=== PATIENT | male | born 1975 | race Caucasian/White ===

== ENCOUNTER 2017-05-29 14:49 | Outpatient (CLI) | payer OTHER | END 2017-05-29 15:43 | disposition home or self-care (01) | LOC: DCC 14:49 | DX: R60.0 Localized edema (principal); E11.9 Type 2 diabetes mellitus without complications; I10 Essential (primary) hypertension; E78.5 Hyperlipidemia, unspecified; N28.9 Disorder of kidney and ureter, unspecified; D64.9 Anemia, unspecified; N40.0 Benign prostatic hyperplasia without lower urinary tract symptoms; Z79.4 Long term (current) use of insulin | CPT/HCPCS: G0463 ==

== ENCOUNTER 2017-06-12 06:53 | Inpatient (IN) | payer OTHER ==
[2017-06-12] MEDS: ASPIRIN 325 MG TAB PO (09:14)
[2017-06-12 09:29] LABS: ADD MAN DIFF? NO
[2017-06-12 09:38] LABS: WHITE BLOOD COUNT 6.6 10^3/ul (4.8-10.8)
[2017-06-12 09:38] LABS: BASOPHILS % 0.3 % (0.0-2.0); EOSINOPHILS # 0.5 10^3/ul (0.0-0.5); EOSINOPHILS % 8.2 % (0.0-7.0); HEMATOCRIT 26.6 % (42.0-52.0); HEMOGLOBIN 8.7 g/dl (14.0-18.0); LYMPHOCYTES # 1.3 10^3/ul (0.8-2.9); LYMPHOCYTES % 18.9 % (15.0-51.0); MEAN CORPUSCULAR HEMOGLOBIN 27.5 pg (29.0-33.0); MEAN CORPUSCULAR HGB CONC 32.7 g/dl (32.0-37.0); MEAN CORPUSCULAR VOLUME 84.2 fl (82.0-101.0); MEAN PLATELET VOLUME 10.1 fl (7.4-10.4); MONOCYTE # 0.7 10^3/ul (0.3-0.9); MONOCYTES % 11.1 % (0.0-11.0); NEUTROPHIL # 4.1 10^3/ul (1.6-7.5); NEUTROPHILS % 61.3 % (39.0-77.0); PLATELET COUNT 296 10^3/UL (140-415); RED BLOOD COUNT 3.16 10^6/ul (4.70-6.10); RED CELL DISTRIBUTION WIDTH 13.2 % (11.5-14.5)
[2017-06-12] MEDS: NITROGLYCERIN 2% 1 GM OINT PKT TD (09:46)
[2017-06-12] MEDS: FUROSEMIDE 40 MG INJ IV ×2 (09:47→17:19)
[2017-06-12 09:51] LABS: ANION GAP 15 (8-16); BLOOD UREA NITROGEN 22 mg/dl (7-20); CALCIUM 8.3 mg/dl (8.4-10.2); CARBON DIOXIDE 26 mmol/L (21-31); CHLORIDE 108 mmol/L (97-110); GLUCOSE 189 mg/dl (70-220); POTASSIUM 3.2 mmol/L (3.5-5.1); SODIUM 146 mmol/L (135-144)
[2017-06-12 10:03] LABS: B-TYPE NATRIURETIC PEPTIDE 2680 PG/ML (0-125)
[2017-06-12] MEDS ORDERED: POTASSIUM CHLORIDE 30 MEQ in SOD CHLORIDE 0.9% 150 ML IVPB (11:00)
[2017-06-12] MEDS: POTASSIUM CHLORIDE 50 ML IVPB ×3 (11:16→13:12)
[2017-06-12] MEDS ORDERED: ONDANSETRON 4 MG INJ IV ×2 (11:30→13:00)
[2017-06-12] MEDS ORDERED: ACETAMINOPHEN 325 MG TAB PO (11:30)
[2017-06-12 11:39] LABS: AMPHETAMINE/METHAMPHETAMINE Negative (NEGATIVE); BARBITURATES Negative (NEGATIVE); BENZODIAZEPINES Negative (NEGATIVE); CANNABINOIDS Negative (NEGATIVE); OPIATES Negative (NEGATIVE)
[2017-06-12 11:42] LABS: COCAINE Positive (NEGATIVE)
[2017-06-12] MEDS ORDERED: GLUCOSE GEL 15 GRAM TUBE PO ×4 (13:30→15:00)
[2017-06-12] MEDS ORDERED: DEXTROSE 50% 50 ML SYRINGE IV ×4 (13:30→15:00)
[2017-06-12] MEDS ORDERED: GLUCOSE GEL 15 GRAM TUBE BUCCAL ×2 (13:30→15:00)
[2017-06-12] MEDS ORDERED: GLUCAGON 1 MG INJ IM ×2 (13:30→15:00)
[2017-06-12] MEDS: METOLAZONE 5 MG TAB PO (15:00)
[2017-06-12] MEDS: CHOLECALCIFEROL 1,000 UNIT TAB PO (15:00)
[2017-06-12] MEDS: EZETIMIBE 10 MG TAB PO (15:00)
[2017-06-12] MEDS: hydrALAzine 20 MG INJ IV (15:11)
[2017-06-12 15:47] LABS: ALANINE AMINOTRANSFERASE 46 IU/L (13-69); ALBUMIN 2.6 g/dl (3.3-4.9); ALKALINE PHOSPHATASE 100 IU/L (42-121); ASPARTATE AMINO TRANSFERASE 28 IU/L (15-46); BILIRUBIN,INDIRECT 0.1 mg/dl (0-1.1); BILIRUBIN,TOTAL 0.1 mg/dl (0.2-1.3); CREATINE KINASE 495 IU/L (23-200); TOTAL PROTEIN 5.1 g/dl (6.1-8.1)
[2017-06-12 15:59] LABS: CK INDEX 0.7; TROPONIN-I 0.012 ng/ml (0.00-0.12)
[2017-06-12 16:00] LABS: CK-MB 3.51 ng/ml (0.0-2.4)
[2017-06-12] MEDS: REPAGLINIDE 1 MG TAB PO (18:36)
[2017-06-12] MEDS: INSULIN ASPART [NOVOLOG] 3 ML PEN SC ×2 (18:40→21:03)
[2017-06-12] MEDS: ATORVASTATIN 80 MG TAB PO (20:52)
[2017-06-12] MEDS: TAMSULOSIN (SR) 0.4 MG CAP PO (20:52)
[2017-06-12] MEDS: AMLODIPINE 10 MG TAB PO (20:53)
[2017-06-12] MEDS: INSULIN GLARGINE [LANtus] 3 ML PEN SC (21:03)
[2017-06-12 21:36] LABS: CREATINE KINASE 499 IU/L (23-200)
[2017-06-12 21:46] LABS: CK INDEX 0.7; TROPONIN-I 0.014 ng/ml (0.00-0.12)
[2017-06-12 21:47] LABS: CK-MB 3.58 ng/ml (0.0-2.4)
[2017-06-13] MEDS: ACCU-CHEK XX (01:41)
[2017-06-13] MEDS: ZOLPIDEM 5 MG TAB PO ×2 (01:45→21:17)
[2017-06-13] MEDS: FUROSEMIDE 40 MG INJ IV ×2 (05:23→17:14)
[2017-06-13 07:30] LABS: ADD MAN DIFF? NO
[2017-06-13 07:34] LABS: BASOPHILS % 0.3 % (0.0-2.0); EOSINOPHILS # 0.5 10^3/ul (0.0-0.5); EOSINOPHILS % 8.6 % (0.0-7.0); HEMATOCRIT 24.1 % (42.0-52.0); HEMOGLOBIN 7.8 g/dl (14.0-18.0); LYMPHOCYTES # 1.2 10^3/ul (0.8-2.9); LYMPHOCYTES % 20.6 % (15.0-51.0); MEAN CORPUSCULAR HEMOGLOBIN 27.6 pg (29.0-33.0); MEAN CORPUSCULAR HGB CONC 32.4 g/dl (32.0-37.0); MEAN CORPUSCULAR VOLUME 85.2 fl (82.0-101.0); MEAN PLATELET VOLUME 10.7 fl (7.4-10.4); MONOCYTE # 0.7 10^3/ul (0.3-0.9); MONOCYTES % 11.2 % (0.0-11.0); NEUTROPHIL # 3.5 10^3/ul (1.6-7.5); NEUTROPHILS % 59.1 % (39.0-77.0); PLATELET COUNT 268 10^3/UL (140-415); RED BLOOD COUNT 2.83 10^6/ul (4.70-6.10); RED CELL DISTRIBUTION WIDTH 13.3 % (11.5-14.5)
[2017-06-13] MEDS: INSULIN ASPART [NOVOLOG] 3 ML PEN SC ×4 (07:55→20:03)
[2017-06-13 08:22] LABS: ALBUMIN 2.5 g/dl (3.3-4.9); BLOOD UREA NITROGEN 25 mg/dl (7-20); CALCIUM 8.3 mg/dl (8.4-10.2); CARBON DIOXIDE 29 mmol/L (21-31); CHLORIDE 108 mmol/L (97-110); CREATININE 1.73 mg/dl (0.61-1.24); GLUCOSE 84 mg/dl (70-220); MAGNESIUM 1.9 mg/dl (1.7-2.5); PHOSPHORUS 4.9 mg/dl (2.5-4.9); SODIUM 145 mmol/L (135-144)
[2017-06-13 08:26] LABS: ANION GAP 11 (8-16); POTASSIUM 2.9 mmol/L (3.5-5.1)
[2017-06-13] MEDS: EZETIMIBE 10 MG TAB PO (08:56)
[2017-06-13] MEDS: hydrALAzine 20 MG INJ IV ×2 (08:56→16:49)
[2017-06-13] MEDS: REPAGLINIDE 1 MG TAB PO ×3 (08:56→17:10)
[2017-06-13] MEDS: CHOLECALCIFEROL 1,000 UNIT TAB PO (08:56)
[2017-06-13] MEDS: METOLAZONE 5 MG TAB PO (08:57)
[2017-06-13] MEDS ORDERED: POTASSIUM CHLORIDE 40 MEQ in DEXTROSE 5% 250 ML IVPB (09:30)
[2017-06-13] MEDS: POTASSIUM CHLORIDE 50 ML IVPB ×4 (10:28→16:18)
[2017-06-13 14:59] LABS: MAGNESIUM 1.9 mg/dl (1.7-2.5)
[2017-06-13] MEDS: MINOXIDIL 2.5 MG TAB PO (17:48)
[2017-06-13] MEDS: HEPARIN 5,000 UNIT/0.5 ML VIAL SC (17:52)
[2017-06-13] MEDS: AMLODIPINE 10 MG TAB PO (20:00)
[2017-06-13] MEDS: ATORVASTATIN 80 MG TAB PO (20:00)
[2017-06-13] MEDS: TAMSULOSIN (SR) 0.4 MG CAP PO (20:00)
[2017-06-13] MEDS: INSULIN GLARGINE [LANtus] 3 ML PEN SC (20:10)
[2017-06-14] MEDS: ACCU-CHEK XX (01:16)
[2017-06-14] MEDS: HEPARIN 5,000 UNIT/0.5 ML VIAL SC ×3 (01:26→17:07)
[2017-06-14] MEDS: FUROSEMIDE 40 MG INJ IV (05:01)
[2017-06-14 06:54] LABS: ADD MAN DIFF? NO
[2017-06-14 06:59] LABS: BASOPHILS % 0.5 % (0.0-2.0); EOSINOPHILS # 0.5 10^3/ul (0.0-0.5); EOSINOPHILS % 7.8 % (0.0-7.0); HEMATOCRIT 24.9 % (42.0-52.0); LYMPHOCYTES # 1.2 10^3/ul (0.8-2.9); LYMPHOCYTES % 19.4 % (15.0-51.0); MEAN CORPUSCULAR HEMOGLOBIN 26.8 pg (29.0-33.0); MEAN CORPUSCULAR HGB CONC 32.1 g/dl (32.0-37.0); MEAN CORPUSCULAR VOLUME 83.6 fl (82.0-101.0); MEAN PLATELET VOLUME 10.5 fl (7.4-10.4); MONOCYTE # 0.6 10^3/ul (0.3-0.9); NEUTROPHIL # 3.7 10^3/ul (1.6-7.5); PLATELET COUNT 279 10^3/UL (140-415); RED BLOOD COUNT 2.98 10^6/ul (4.70-6.10); RED CELL DISTRIBUTION WIDTH 13.4 % (11.5-14.5)
[2017-06-14 07:30] LABS: ALBUMIN 2.8 g/dl (3.3-4.9); ANION GAP 14 (8-16); BLOOD UREA NITROGEN 28 mg/dl (7-20); CALCIUM 8.3 mg/dl (8.4-10.2); CARBON DIOXIDE 28 mmol/L (21-31); CHLORIDE 107 mmol/L (97-110); GLUCOSE 78 mg/dl (70-220); PHOSPHORUS 5.6 mg/dl (2.5-4.9); POTASSIUM 3.2 mmol/L (3.5-5.1); SODIUM 146 mmol/L (135-144)
[2017-06-14] MEDS: REPAGLINIDE 1 MG TAB PO ×3 (07:36→17:06)
[2017-06-14] MEDS: INSULIN ASPART [NOVOLOG] 3 ML PEN SC ×4 (07:40→20:55)
[2017-06-14] MEDS: METOLAZONE 5 MG TAB PO (08:47)
[2017-06-14] MEDS: MINOXIDIL 2.5 MG TAB PO (08:47)
[2017-06-14] MEDS: CHOLECALCIFEROL 1,000 UNIT TAB PO (08:47)
[2017-06-14] MEDS: EZETIMIBE 10 MG TAB PO (08:47)
[2017-06-14] MEDS: INFLUENZA VIRUS VACCINE 0.5 ML SYG IM* (08:57)
[2017-06-14] MEDS: LACTULOSE 30ML CUP PO ×2 (12:06→17:08)
[2017-06-14] MEDS: DOXAZOSIN 1 MG TAB PO (12:07)
[2017-06-14 13:11] LABS: HEPATITIS B SURFACE ANTIGEN NEGATIVE (NEGATIVE)
[2017-06-14 13:28] LABS: HEPATITIS C VIRAL ANTIBODY NEGATIVE (NEGATIVE)
[2017-06-14] MEDS: hydrALAzine 20 MG INJ IV (17:10)
[2017-06-14] MEDS: POTASSIUM CHLORIDE (SR) 20 MEQ TAB PO (18:49)
[2017-06-14] MEDS: SALMETEROL/FLUTICASONE 250/50 INHA INH (20:52)
[2017-06-14] MEDS: ATORVASTATIN 80 MG TAB PO (20:54)
[2017-06-14] MEDS: DOXAZOSIN 4 MG TAB PO (20:54)
[2017-06-14] MEDS: AMLODIPINE 2.5 MG TAB PO (20:54)
[2017-06-14] MEDS: MONTELUKAST 10 MG TAB PO (20:54)
[2017-06-14] MEDS: INSULIN GLARGINE [LANtus] 3 ML PEN SC (20:57)
[2017-06-14] MEDS: NITROGLYCERIN (SL) 0.4 MG TAB SL ×2 (22:43→22:55)
[2017-06-14] MEDS ORDERED: NITROGLYCERIN (SL) 0.4 MG TAB SL (23:00)
[2017-06-14 23:39] LABS: TROPONIN-I 0.021 ng/ml (0.00-0.12)
[2017-06-15] MEDS: ALBUMIN HUMAN 25% 100 ML IV ×2 (00:28→10:06)
[2017-06-15] MEDS: HEPARIN 5,000 UNIT/0.5 ML VIAL SC ×3 (01:55→17:19)
[2017-06-15] MEDS: ACCU-CHEK XX (02:06)
[2017-06-15] MEDS: ACETAMINOPHEN 325 MG TAB PO (02:20)
[2017-06-15] MEDS: DILTIAZEM 25 MG INJ IV (02:20)
[2017-06-15] MEDS: AMIODARONE 900 MG in DEXTROSE 5% 482 ML IV ×2 (04:29→10:35)
[2017-06-15 07:51] LABS: ADD MAN DIFF? NO
[2017-06-15] MEDS: REPAGLINIDE 1 MG TAB PO ×3 (07:52→17:19)
[2017-06-15] MEDS: INSULIN ASPART [NOVOLOG] 3 ML PEN SC ×4 (07:54→21:00)
[2017-06-15 07:58] LABS: WHITE BLOOD COUNT 5.8 10^3/ul (4.8-10.8)
[2017-06-15 07:59] LABS: BASOPHILS % 0.3 % (0.0-2.0); EOSINOPHILS # 0.4 10^3/ul (0.0-0.5); EOSINOPHILS % 6.1 % (0.0-7.0); HEMATOCRIT 24.8 % (42.0-52.0); HEMOGLOBIN 7.9 g/dl (14.0-18.0); LYMPHOCYTES # 1.1 10^3/ul (0.8-2.9); LYMPHOCYTES % 18.9 % (15.0-51.0); MEAN CORPUSCULAR HEMOGLOBIN 27.1 pg (29.0-33.0); MEAN CORPUSCULAR HGB CONC 31.9 g/dl (32.0-37.0); MEAN CORPUSCULAR VOLUME 85.2 fl (82.0-101.0); MEAN PLATELET VOLUME 11.1 fl (7.4-10.4); MONOCYTE # 0.8 10^3/ul (0.3-0.9); NEUTROPHIL # 3.5 10^3/ul (1.6-7.5); NEUTROPHILS % 60.4 % (39.0-77.0); PLATELET COUNT 247 10^3/UL (140-415); RED BLOOD COUNT 2.91 10^6/ul (4.70-6.10); RED CELL DISTRIBUTION WIDTH 13.2 % (11.5-14.5)
[2017-06-15 08:32] LABS: TROPONIN-I 0.044 ng/ml (0.00-0.12)
[2017-06-15 08:34] LABS: ALBUMIN 2.6 g/dl (3.3-4.9); ANION GAP 14 (8-16); BLOOD UREA NITROGEN 33 mg/dl (7-20); CALCIUM 8.1 mg/dl (8.4-10.2); CARBON DIOXIDE 27 mmol/L (21-31); CHLORIDE 105 mmol/L (97-110); CREATININE 2.04 mg/dl (0.61-1.24); GLUCOSE 104 mg/dl (70-220); PHOSPHORUS 5.6 mg/dl (2.5-4.9); POTASSIUM 3.4 mmol/L (3.5-5.1); SODIUM 143 mmol/L (135-144)
[2017-06-15] MEDS: SALMETEROL/FLUTICASONE 250/50 INHA INH ×2 (08:48→21:06)
[2017-06-15] MEDS: CHOLECALCIFEROL 1,000 UNIT TAB PO (08:48)
[2017-06-15] MEDS: EZETIMIBE 10 MG TAB PO (08:49)
[2017-06-15] MEDS: NITROGLYCERIN (SL) 0.4 MG TAB SL (09:54)
[2017-06-15] MEDS: POTASSIUM CHLORIDE (SR) 20 MEQ TAB PO (14:03)
[2017-06-15] MEDS: METOPROLOL (XL) 25 MG TAB PO (14:04)
[2017-06-15] MEDS ORDERED: VITAMIN A & D 5 GM OINT PACKET TOP (21:02)
[2017-06-15] MEDS: ATORVASTATIN 80 MG TAB PO (21:05)
[2017-06-15] MEDS: DOXAZOSIN 4 MG TAB PO (21:05)
[2017-06-15] MEDS: MONTELUKAST 10 MG TAB PO (21:05)
[2017-06-15] MEDS: INSULIN GLARGINE [LANtus] 3 ML PEN SC (21:09)
[2017-06-15] MEDS ORDERED: GUAIFENESIN/DM 5ML CUP PO (22:00)
[2017-06-16] MEDS: HEPARIN 5,000 UNIT/0.5 ML VIAL SC ×3 (01:30→17:22)
[2017-06-16] MEDS: ACCU-CHEK XX (01:48)
[2017-06-16] MEDS: INSULIN ASPART [NOVOLOG] 3 ML PEN SC ×4 (07:43→20:36)
[2017-06-16] MEDS: REPAGLINIDE 1 MG TAB PO ×3 (07:49→17:18)
[2017-06-16] MEDS: CHOLECALCIFEROL 1,000 UNIT TAB PO (08:51)
[2017-06-16] MEDS: EZETIMIBE 10 MG TAB PO (08:51)
[2017-06-16] MEDS: SALMETEROL/FLUTICASONE 250/50 INHA INH ×2 (08:52→20:34)
[2017-06-16] MEDS: METOPROLOL (XL) 25 MG TAB PO (08:52)
[2017-06-16 11:59] LABS: ANION GAP 15 (8-16); BLOOD UREA NITROGEN 40 mg/dl (7-20); CALCIUM 8.3 mg/dl (8.4-10.2); CARBON DIOXIDE 28 mmol/L (21-31); CHLORIDE 103 mmol/L (97-110); GLUCOSE 107 mg/dl (70-220); MAGNESIUM 2.3 mg/dl (1.7-2.5); POTASSIUM 3.5 mmol/L (3.5-5.1); SODIUM 142 mmol/L (135-144)
[2017-06-16] MEDS ORDERED: BUMETANIDE 12 MG in DEXTROSE 5% 72 ML IV (14:00)
[2017-06-16] MEDS: POTASSIUM CHLORIDE (SR) 20 MEQ TAB PO (14:33)
[2017-06-16] MEDS: BUMETANIDE 25 MG in DEXTROSE 5% 150 ML IV (15:22)
[2017-06-16 16:22] LABS: ADD UMIC YES; UR ASCORBIC ACID NEGATIVE (NEGATIVE); UR BILIRUBIN (Dip) NEGATIVE (NEGATIVE); UR BLOOD (Dip) NEGATIVE (NEGATIVE); UR CLARITY SLIGHTLY CLOUDY (CLEAR); UR COLOR YELLOW (YELLOW); UR GLUCOSE (Dip) 2+ mg/dL (NEGATIVE); UR KETONES (Dip) NEGATIVE (NEGATIVE); UR LEUKOCYTE ESTERASE (Dip) NEGATIVE Leu/ul (NEGATIVE); UR NITRITE (Dip) NEGATIVE (NEGATIVE); UR RBC 3 /HPF (0-5); UR SPECIFIC GRAVITY (Dip) 1.017 (1.003-1.030); UR TOTAL PROTEIN (Dip) 3+ mg/dl (NEGATIVE); UR UROBILINOGEN (Dip) NEGATIVE (NEGATIVE); UR WBC 5 /HPF (0-5)
[2017-06-16] MEDS: DOXAZOSIN 4 MG TAB PO (20:27)
[2017-06-16] MEDS: MONTELUKAST 10 MG TAB PO (20:27)
[2017-06-16] MEDS: ATORVASTATIN 80 MG TAB PO (20:27)
[2017-06-16] MEDS: INSULIN GLARGINE [LANtus] 3 ML PEN SC (20:34)
[2017-06-17] MEDS: ZOLPIDEM 5 MG TAB PO (01:11)
[2017-06-17] MEDS: HEPARIN 5,000 UNIT/0.5 ML VIAL SC ×3 (01:15→17:59)
[2017-06-17] MEDS: ACCU-CHEK XX (01:21)
[2017-06-17] MEDS: INSULIN ASPART [NOVOLOG] 3 ML PEN SC ×4 (07:55→21:00)
[2017-06-17] MEDS: REPAGLINIDE 1 MG TAB PO ×3 (08:00→18:00)
[2017-06-17] MEDS: SALMETEROL/FLUTICASONE 250/50 INHA INH ×2 (08:37→22:21)
[2017-06-17] MEDS: EZETIMIBE 10 MG TAB PO (08:38)
[2017-06-17] MEDS: METOPROLOL (XL) 25 MG TAB PO (08:38)
[2017-06-17] MEDS: CHOLECALCIFEROL 1,000 UNIT TAB PO (08:38)
[2017-06-17 08:54] LABS: ADD MAN DIFF? NO
[2017-06-17 09:09] LABS: WHITE BLOOD COUNT 5.5 10^3/ul (4.8-10.8)
[2017-06-17 09:09] LABS: ABNORMAL IP MESSAGE 1; BASOPHILS % 0.2 % (0.0-2.0); EOSINOPHILS # 0.3 10^3/ul (0.0-0.5); EOSINOPHILS % 5.7 % (0.0-7.0); LYMPHOCYTES % 18.3 % (15.0-51.0); MEAN CORPUSCULAR HEMOGLOBIN 27.7 pg (29.0-33.0); MEAN CORPUSCULAR HGB CONC 32.9 g/dl (32.0-37.0); MEAN CORPUSCULAR VOLUME 84.3 fl (82.0-101.0); MEAN PLATELET VOLUME 11.8 fl (7.4-10.4); MONOCYTE # 0.7 10^3/ul (0.3-0.9); MONOCYTES % 13.2 % (0.0-11.0); NEUTROPHIL # 3.4 10^3/ul (1.6-7.5); NEUTROPHILS % 62.2 % (39.0-77.0); PLATELET COUNT 192 10^3/UL (140-415); POSITIVE DIFF @See below; RED BLOOD COUNT 2.49 10^6/ul (4.70-6.10); RED CELL DISTRIBUTION WIDTH 13.1 % (11.5-14.5)
[2017-06-17 09:31] LABS: ALANINE AMINOTRANSFERASE 39 IU/L (13-69); ALBUMIN 2.7 g/dl (3.3-4.9); ALKALINE PHOSPHATASE 85 IU/L (42-121); ANION GAP 11 (8-16); ASPARTATE AMINO TRANSFERASE 30 IU/L (15-46); BILIRUBIN,INDIRECT 0.1 mg/dl (0-1.1); BILIRUBIN,TOTAL 0.1 mg/dl (0.2-1.3); BLOOD UREA NITROGEN 43 mg/dl (7-20); CALCIUM 8.2 mg/dl (8.4-10.2); CARBON DIOXIDE 29 mmol/L (21-31); CHLORIDE 102 mmol/L (97-110); GLUCOSE 86 mg/dl (70-220); SODIUM 139 mmol/L (135-144); TOTAL PROTEIN 5.4 g/dl (6.1-8.1)
[2017-06-17 09:34] LABS: IRON 27 ug/dl (35-150); POTASSIUM 2.8 mmol/L (3.5-5.1)
[2017-06-17 09:42] LABS: HEMOGLOBIN 6.9 g/dl (14.0-18.0)
[2017-06-17 09:44] LABS: % IRON SATURATION 11 % SAT (22-52); TOTAL IRON BINDING CAPACITY 257 ug/dl (241-421)
[2017-06-17 10:00] LABS: FERRITIN 88.8 ng/ml (17.9-464.0)
[2017-06-17] MEDS ORDERED: POTASSIUM CHLORIDE (SR) 20 MEQ TAB PO (10:05)
[2017-06-17] MEDS: POTASSIUM CHLORIDE (SR) 20 MEQ TAB PO (10:24)
[2017-06-17] MEDS: POTASSIUM CHLORIDE 50 ML IVPB ×2 (10:25→11:55)
[2017-06-17] MEDS ORDERED: POTASSIUM CHLORIDE 50 ML IVPB (10:30)
[2017-06-17] MEDS: HYDROCODONE/APAP (5/325) TAB PO (10:46)
[2017-06-17 14:44] LABS: HEMATOCRIT 22.3 % (42.0-52.0); HEMOGLOBIN 7.2 g/dl (14.0-18.0)
[2017-06-17 15:06] LABS: ANION GAP 11 (8-16); BLOOD UREA NITROGEN 44 mg/dl (7-20); CALCIUM 8.4 mg/dl (8.4-10.2); CARBON DIOXIDE 30 mmol/L (21-31); CHLORIDE 102 mmol/L (97-110); CREATININE 2.51 mg/dl (0.61-1.24); GLUCOSE 98 mg/dl (70-220); MAGNESIUM 2.1 mg/dl (1.7-2.5); POTASSIUM 3.6 mmol/L (3.5-5.1); SODIUM 139 mmol/L (135-144)
[2017-06-17] MEDS: BUMETANIDE 25 MG in DEXTROSE 5% 150 ML IV (15:51)
[2017-06-17 16:42] LABS: COLLECTION PERIOD 24 hrs
[2017-06-17 17:05] LABS: CREATININE,URINE RANDOM 38.03 mg/dl (20-370)
[2017-06-17 17:12] LABS: COLLECTION PERIOD 24 hrs; CREATININE CLEARANCE 52.9 mls/min (84.0-162.0); SCRET 2.51 mg/dl (0.61-1.24); VOLUME 5025 ml/24hrs; VOLUME 5025 mls
[2017-06-17 17:25] LABS: 24HR URINE TOTAL PROTEIN 11808.8 mg/24hrs (42.0-225.0)
[2017-06-17] MEDS: EPOETIN 10000 UNITS/1 ML INJ (ESRD) SC (18:01)
[2017-06-17] MEDS: INSULIN GLARGINE [LANtus] 3 ML PEN SC (21:00)
[2017-06-17] MEDS: ATORVASTATIN 80 MG TAB PO (22:20)
[2017-06-17] MEDS: DOXAZOSIN 4 MG TAB PO (22:20)
[2017-06-17] MEDS: MONTELUKAST 10 MG TAB PO (22:21)
[2017-06-17] MEDS: SOD FERRIC GLUC COMPLX 125 MG in SOD CHLORIDE 0.9% 100 ML IVPB (22:40)
[2017-06-18] MEDS: ACCU-CHEK XX (02:00)
[2017-06-18] MEDS: HEPARIN 5,000 UNIT/0.5 ML VIAL SC ×3 (02:13→17:30)
[2017-06-18 07:42] LABS: ANION GAP 12 (8-16); BLOOD UREA NITROGEN 47 mg/dl (7-20); CALCIUM 8.2 mg/dl (8.4-10.2); CARBON DIOXIDE 32 mmol/L (21-31); CHLORIDE 101 mmol/L (97-110); CREATININE 2.33 mg/dl (0.61-1.24); GLUCOSE 121 mg/dl (70-220); MAGNESIUM 2.1 mg/dl (1.7-2.5); POTASSIUM 3.2 mmol/L (3.5-5.1); SODIUM 142 mmol/L (135-144)
[2017-06-18] MEDS: INSULIN ASPART [NOVOLOG] 3 ML PEN SC ×4 (07:55→21:30)
[2017-06-18] MEDS: BENAZEPRIL 20 MG TAB PO (09:03)
[2017-06-18] MEDS: METOPROLOL (XL) 25 MG TAB PO (09:04)
[2017-06-18] MEDS: CHOLECALCIFEROL 1,000 UNIT TAB PO (09:04)
[2017-06-18] MEDS: EZETIMIBE 10 MG TAB PO (09:04)
[2017-06-18] MEDS: REPAGLINIDE 1 MG TAB PO ×3 (09:05→17:25)
[2017-06-18] MEDS: SALMETEROL/FLUTICASONE 250/50 INHA INH ×2 (09:05→21:13)
[2017-06-18] MEDS: ACETAMINOPHEN 325 MG TAB PO (10:42)
[2017-06-18] MEDS: METOLAZONE 5 MG TAB PO (11:00)
[2017-06-18] MEDS: POTASSIUM CHLORIDE (SR) 20 MEQ TAB PO (11:30)
[2017-06-18 11:52] LABS: ADD MAN DIFF? NO
[2017-06-18 11:57] LABS: WHITE BLOOD COUNT 4.7 10^3/ul (4.8-10.8)
[2017-06-18 11:57] LABS: ABNORMAL IP MESSAGE 1; BASOPHILS % 0.4 % (0.0-2.0); EOSINOPHILS # 0.4 10^3/ul (0.0-0.5); EOSINOPHILS % 7.5 % (0.0-7.0); HEMATOCRIT 21.3 % (42.0-52.0); LYMPHOCYTES # 0.9 10^3/ul (0.8-2.9); LYMPHOCYTES % 18.3 % (15.0-51.0); MEAN CORPUSCULAR HEMOGLOBIN 27.7 pg (29.0-33.0); MEAN CORPUSCULAR HGB CONC 32.4 g/dl (32.0-37.0); MEAN CORPUSCULAR VOLUME 85.5 fl (82.0-101.0); MEAN PLATELET VOLUME 12.1 fl (7.4-10.4); MONOCYTE # 0.6 10^3/ul (0.3-0.9); NEUTROPHIL # 2.8 10^3/ul (1.6-7.5); NEUTROPHILS % 60.6 % (39.0-77.0); PLATELET COUNT 195 10^3/UL (140-415); POSITIVE DIFF @See below; RED BLOOD COUNT 2.49 10^6/ul (4.70-6.10); RED CELL DISTRIBUTION WIDTH 13.3 % (11.5-14.5)
[2017-06-18 12:09] LABS: HEMOGLOBIN 6.9 g/dl (14.0-18.0)
[2017-06-18] MEDS: HYDROCODONE/APAP (5/325) TAB PO (16:22)
[2017-06-18] MEDS: BUMETANIDE 25 MG in DEXTROSE 5% 150 ML IV (16:22)
[2017-06-18] MEDS: MONTELUKAST 10 MG TAB PO (21:12)
[2017-06-18] MEDS: ATORVASTATIN 80 MG TAB PO (21:12)
[2017-06-18] MEDS: INSULIN GLARGINE [LANtus] 3 ML PEN SC (21:29)
[2017-06-18] MEDS: SOD FERRIC GLUC COMPLX 125 MG in SOD CHLORIDE 0.9% 100 ML IVPB (21:32)
[2017-06-18] MEDS: BENAZEPRIL 5 MG TAB GTB (23:17)
[2017-06-19] MEDS: HYDROCODONE/APAP (5/325) TAB PO ×2 (01:19→14:14)
[2017-06-19] MEDS: HEPARIN 5,000 UNIT/0.5 ML VIAL SC ×3 (01:22→18:05)
[2017-06-19] MEDS: ACCU-CHEK XX (02:00)
[2017-06-19] MEDS: BUMETANIDE 25 MG in DEXTROSE 5% 150 ML IV ×2 (04:27→18:00)
[2017-06-19] MEDS: morphine 2 MG INJ IV (04:51)
[2017-06-19] MEDS: INSULIN ASPART [NOVOLOG] 3 ML PEN SC ×4 (07:55→20:46)
[2017-06-19 08:45] LABS: ADD MAN DIFF? NO
[2017-06-19 08:49] LABS: WHITE BLOOD COUNT 5.3 10^3/ul (4.8-10.8)
[2017-06-19 08:49] LABS: BASOPHILS % 0.4 % (0.0-2.0); EOSINOPHILS # 0.3 10^3/ul (0.0-0.5); EOSINOPHILS % 5.8 % (0.0-7.0); HEMATOCRIT 23.6 % (42.0-52.0); HEMOGLOBIN 7.7 g/dl (14.0-18.0); LYMPHOCYTES # 1.3 10^3/ul (0.8-2.9); LYMPHOCYTES % 23.6 % (15.0-51.0); MEAN CORPUSCULAR HEMOGLOBIN 27.1 pg (29.0-33.0); MEAN CORPUSCULAR HGB CONC 32.6 g/dl (32.0-37.0); MEAN CORPUSCULAR VOLUME 83.1 fl (82.0-101.0); MEAN PLATELET VOLUME 11.5 fl (7.4-10.4); MONOCYTE # 0.8 10^3/ul (0.3-0.9); MONOCYTES % 14.6 % (0.0-11.0); NEUTROPHILS % 55.4 % (39.0-77.0); PLATELET COUNT 239 10^3/UL (140-415); RED BLOOD COUNT 2.84 10^6/ul (4.70-6.10); RED CELL DISTRIBUTION WIDTH 13.2 % (11.5-14.5)
[2017-06-19 09:09] LABS: ANION GAP 15 (8-16); BLOOD UREA NITROGEN 46 mg/dl (7-20); CALCIUM 8.7 mg/dl (8.4-10.2); CARBON DIOXIDE 31 mmol/L (21-31); CHLORIDE 99 mmol/L (97-110); CREATININE 2.17 mg/dl (0.61-1.24); GLUCOSE 76 mg/dl (70-220); POTASSIUM 3.3 mmol/L (3.5-5.1); SODIUM 142 mmol/L (135-144)
[2017-06-19] MEDS: REPAGLINIDE 1 MG TAB PO ×3 (09:12→17:40)
[2017-06-19] MEDS: BENAZEPRIL 20 MG TAB PO (09:14)
[2017-06-19] MEDS: SALMETEROL/FLUTICASONE 250/50 INHA INH ×2 (09:15→20:40)
[2017-06-19] MEDS: POTASSIUM CHLORIDE (SR) 20 MEQ TAB PO (11:55)
[2017-06-19] MEDS: POTASSIUM CHLORIDE (SR) 10 MEQ TAB PO ×2 (14:14→20:39)
[2017-06-19] MEDS: ATORVASTATIN 80 MG TAB PO (20:39)
[2017-06-19] MEDS: MONTELUKAST 10 MG TAB PO (20:39)
[2017-06-19] MEDS: BENAZEPRIL 5 MG TAB GTB (20:40)
[2017-06-19] MEDS: SOD FERRIC GLUC COMPLX 125 MG in SOD CHLORIDE 0.9% 100 ML IVPB (20:41)
[2017-06-19] MEDS: INSULIN GLARGINE [LANtus] 3 ML PEN SC (20:46)
[2017-06-20] MEDS: HEPARIN 5,000 UNIT/0.5 ML VIAL SC ×2 (01:56→08:29)
[2017-06-20] MEDS: ACCU-CHEK XX (02:00)
[2017-06-20] MEDS: BUMETANIDE 25 MG in DEXTROSE 5% 150 ML IV ×2 (04:03→16:09)
[2017-06-20 07:28] LABS: ANION GAP 11 (8-16); BLOOD UREA NITROGEN 48 mg/dl (7-20); CARBON DIOXIDE 36 mmol/L (21-31); CHLORIDE 99 mmol/L (97-110); CREATININE 2.25 mg/dl (0.61-1.24); GLUCOSE 63 mg/dl (70-220); MAGNESIUM 1.9 mg/dl (1.7-2.5); POTASSIUM 3.5 mmol/L (3.5-5.1); SODIUM 142 mmol/L (135-144)
[2017-06-20] MEDS: REPAGLINIDE 1 MG TAB PO ×3 (07:54→17:16)
[2017-06-20] MEDS: INSULIN ASPART [NOVOLOG] 3 ML PEN SC ×4 (07:55→21:00)
[2017-06-20 08:13] LABS: HIV 1&2 ANTIBODY NEGATIVE (NEGATIVE)
[2017-06-20] MEDS: POTASSIUM CHLORIDE (SR) 10 MEQ TAB PO ×2 (08:26→21:04)
[2017-06-20] MEDS: BENAZEPRIL 20 MG TAB PO (08:27)
[2017-06-20] MEDS: SALMETEROL/FLUTICASONE 250/50 INHA INH ×2 (08:31→21:03)
[2017-06-20] MEDS: NIFEdipine (XL) 60 MG TAB PO ×2 (11:50→21:04)
[2017-06-20] MEDS: MAGNESIUM HYDROXIDE 30ML CUP PO (11:50)
[2017-06-20] MEDS: ASPIRIN 81 MG TAB PO (11:54)
[2017-06-20] MEDS: POTASSIUM CHLORIDE (SR) 20 MEQ TAB PO (12:38)
[2017-06-20] MEDS: SOD FERRIC GLUC COMPLX 125 MG in SOD CHLORIDE 0.9% 100 ML IVPB (20:59)
[2017-06-20] MEDS ORDERED: INSULIN GLARGINE [LANtus] 3 ML PEN SC (21:00)
[2017-06-20] MEDS: BENAZEPRIL 5 MG TAB GTB (21:01)
[2017-06-20] MEDS: MONTELUKAST 10 MG TAB PO (21:03)
[2017-06-20] MEDS: INSULIN GLARGINE [LANtus] 3 ML PEN SC (21:14)
[2017-06-21] MEDS: ACCU-CHEK XX (01:14)
[2017-06-21] MEDS: BUMETANIDE 25 MG in DEXTROSE 5% 150 ML IV ×2 (05:09→17:58)
[2017-06-21 07:11] LABS: ANION GAP 14 (8-16); BLOOD UREA NITROGEN 50 mg/dl (7-20); CALCIUM 8.3 mg/dl (8.4-10.2); CARBON DIOXIDE 34 mmol/L (21-31); CHLORIDE 99 mmol/L (97-110); CREATININE 2.16 mg/dl (0.61-1.24); GLUCOSE 82 mg/dl (70-220); POTASSIUM 3.5 mmol/L (3.5-5.1); SODIUM 143 mmol/L (135-144)
[2017-06-21] MEDS: INSULIN ASPART [NOVOLOG] 3 ML PEN SC ×4 (07:54→21:17)
[2017-06-21] MEDS: REPAGLINIDE 1 MG TAB PO ×3 (07:55→17:08)
[2017-06-21] MEDS: ASPIRIN 81 MG TAB PO (09:13)
[2017-06-21] MEDS: BENAZEPRIL 40 MG TAB PO (09:13)
[2017-06-21] MEDS: POTASSIUM CHLORIDE (SR) 10 MEQ TAB PO (09:13)
[2017-06-21] MEDS: NIFEdipine (XL) 60 MG TAB PO ×2 (09:13→21:05)
[2017-06-21] MEDS: SALMETEROL/FLUTICASONE 250/50 INHA INH ×2 (09:14→21:06)
[2017-06-21] MEDS: MONTELUKAST 10 MG TAB PO (21:05)
[2017-06-21] MEDS: SOD FERRIC GLUC COMPLX 125 MG in SOD CHLORIDE 0.9% 100 ML IVPB (21:07)
[2017-06-21] MEDS: INSULIN GLARGINE [LANtus] 3 ML PEN SC (21:17)
[2017-06-22] MEDS: ACCU-CHEK XX (01:52)
[2017-06-22] MEDS: morphine 4 MG/ML VIAL IV (05:06)
[2017-06-22] MEDS: BUMETANIDE 25 MG in DEXTROSE 5% 150 ML IV ×2 (05:07→17:36)
[2017-06-22 07:05] LABS: ANION GAP 12 (8-16); BLOOD UREA NITROGEN 54 mg/dl (7-20); CALCIUM 9.1 mg/dl (8.4-10.2); CARBON DIOXIDE 38 mmol/L (21-31); CHLORIDE 97 mmol/L (97-110); CREATININE 2.18 mg/dl (0.61-1.24); GLUCOSE 82 mg/dl (70-220); POTASSIUM 3.5 mmol/L (3.5-5.1); SODIUM 143 mmol/L (135-144)
[2017-06-22] MEDS: INSULIN ASPART [NOVOLOG] 3 ML PEN SC ×4 (07:55→21:39)
[2017-06-22] MEDS: REPAGLINIDE 1 MG TAB PO ×3 (08:04→17:35)
[2017-06-22] MEDS: ASPIRIN 81 MG TAB PO (08:40)
[2017-06-22] MEDS: NIFEdipine (XL) 60 MG TAB PO ×2 (08:40→21:23)
[2017-06-22] MEDS: SALMETEROL/FLUTICASONE 250/50 INHA INH ×2 (08:40→21:23)
[2017-06-22] MEDS: BENAZEPRIL 40 MG TAB PO (08:40)
[2017-06-22] MEDS: MONTELUKAST 10 MG TAB PO (21:23)
[2017-06-22] MEDS: INSULIN GLARGINE [LANtus] 3 ML PEN SC (21:39)
[2017-06-23] MEDS: ACCU-CHEK XX (01:26)
[2017-06-23 07:26] LABS: ANION GAP 12 (8-16); BLOOD UREA NITROGEN 52 mg/dl (7-20); CALCIUM 8.4 mg/dl (8.4-10.2); CARBON DIOXIDE 37 mmol/L (21-31); CHLORIDE 95 mmol/L (97-110); CREATININE 2.09 mg/dl (0.61-1.24); GLUCOSE 123 mg/dl (70-220); MAGNESIUM 1.9 mg/dl (1.7-2.5); POTASSIUM 3.6 mmol/L (3.5-5.1); SODIUM 140 mmol/L (135-144)
[2017-06-23] MEDS: INSULIN ASPART [NOVOLOG] 3 ML PEN SC ×4 (07:55→20:39)
[2017-06-23] MEDS: REPAGLINIDE 1 MG TAB PO ×3 (08:38→17:46)
[2017-06-23] MEDS: ASPIRIN 81 MG TAB PO (08:39)
[2017-06-23] MEDS: BENAZEPRIL 40 MG TAB PO (08:39)
[2017-06-23] MEDS: NIFEdipine (XL) 60 MG TAB PO ×2 (08:39→20:31)
[2017-06-23] MEDS: SALMETEROL/FLUTICASONE 250/50 INHA INH ×2 (08:39→20:32)
[2017-06-23] MEDS: BUMETANIDE 25 MG in DEXTROSE 5% 150 ML IV ×2 (09:21→19:33)
[2017-06-23] MEDS: morphine 4 MG/ML VIAL IV (09:24)
[2017-06-23] MEDS: POTASSIUM CHLORIDE (SR) 20 MEQ TAB PO (12:20)
[2017-06-23 14:03] LABS: ANA SCREEN POSITIVE (NEGATIVE)
[2017-06-23 14:41] LABS: ANA PATTERN HOMOGENEOUS
[2017-06-23] MEDS: MONTELUKAST 10 MG TAB PO (20:31)
[2017-06-23] MEDS: INSULIN GLARGINE [LANtus] 3 ML PEN SC (20:40)
[2017-06-24] MEDS: BUMETANIDE 25 MG in DEXTROSE 5% 150 ML IV (01:34)
[2017-06-24] MEDS: ACCU-CHEK XX (02:45)
[2017-06-24] MEDS: morphine 4 MG/ML VIAL IV ×2 (06:10→12:53)
[2017-06-24 07:29] LABS: ADD MAN DIFF? NO
[2017-06-24 07:35] LABS: WHITE BLOOD COUNT 5.9 10^3/ul (4.8-10.8)
[2017-06-24 07:35] LABS: BASOPHILS % 0.5 % (0.0-2.0); EOSINOPHILS # 0.4 10^3/ul (0.0-0.5); HEMATOCRIT 25.5 % (42.0-52.0); HEMOGLOBIN 8.3 g/dl (14.0-18.0); LYMPHOCYTES # 1.2 10^3/ul (0.8-2.9); LYMPHOCYTES % 20.5 % (15.0-51.0); MEAN CORPUSCULAR HEMOGLOBIN 27.4 pg (29.0-33.0); MEAN CORPUSCULAR HGB CONC 32.5 g/dl (32.0-37.0); MEAN CORPUSCULAR VOLUME 84.2 fl (82.0-101.0); MEAN PLATELET VOLUME 10.7 fl (7.4-10.4); MONOCYTE # 0.9 10^3/ul (0.3-0.9); MONOCYTES % 14.5 % (0.0-11.0); NEUTROPHIL # 3.4 10^3/ul (1.6-7.5); NEUTROPHILS % 58.2 % (39.0-77.0); PLATELET COUNT 308 10^3/UL (140-415); RED BLOOD COUNT 3.03 10^6/ul (4.70-6.10); RED CELL DISTRIBUTION WIDTH 13.3 % (11.5-14.5)
[2017-06-24 07:55] LABS: ANION GAP 14 (8-16); BLOOD UREA NITROGEN 54 mg/dl (7-20); CALCIUM 8.5 mg/dl (8.4-10.2); CARBON DIOXIDE 35 mmol/L (21-31); CHLORIDE 95 mmol/L (97-110); GLUCOSE 96 mg/dl (70-220); POTASSIUM 3.7 mmol/L (3.5-5.1); SODIUM 140 mmol/L (135-144)
[2017-06-24] MEDS: INSULIN ASPART [NOVOLOG] 3 ML PEN SC ×4 (07:55→21:00)
[2017-06-24 07:56] LABS: CHOL/HDL RATIO 4.8 RATIO; HDL CHOLESTEROL 23 mg/dl (27-67); LDL CHOLESTEROL,CALCULATED 58 mg/dl; TRIGLYCERIDES 148 mg/dl (0-149)
[2017-06-24 07:56] LABS: CHOLESTEROL 111 mg/dl (100-200)
[2017-06-24] MEDS: REPAGLINIDE 1 MG TAB PO ×3 (08:39→17:35)
[2017-06-24] MEDS: NIFEdipine (XL) 60 MG TAB PO ×2 (08:41→20:32)
[2017-06-24] MEDS: BENAZEPRIL 40 MG TAB PO (08:41)
[2017-06-24] MEDS: ASPIRIN 81 MG TAB PO (08:42)
[2017-06-24] MEDS: SALMETEROL/FLUTICASONE 250/50 INHA INH (09:59)
[2017-06-24] MEDS: MAGNESIUM HYDROXIDE 30ML CUP PO (14:54)
[2017-06-24] MEDS: FUROSEMIDE 40 MG TAB PO (17:40)
[2017-06-24] MEDS: MONTELUKAST 10 MG TAB PO (20:32)
[2017-06-24] MEDS: INSULIN GLARGINE [LANtus] 3 ML PEN SC (20:44)
[2017-06-25] MEDS: ACCU-CHEK XX (01:49)
[2017-06-25] MEDS: morphine 4 MG/ML VIAL IV ×3 (04:25→16:00)
[2017-06-25] MEDS: FUROSEMIDE 40 MG TAB PO ×2 (05:21→17:16)
[2017-06-25 07:25] LABS: RETICULOCYTE RBC 3.02
[2017-06-25 07:25] LABS: RETICULOCYTE COUNT # 0.071 X10^6 (0.020-0.110); RETICULOCYTE COUNT % 2.4 % (0.5-1.5)
[2017-06-25] MEDS: INSULIN ASPART [NOVOLOG] 3 ML PEN SC ×3 (07:25→17:16)
[2017-06-25] MEDS: REPAGLINIDE 1 MG TAB PO ×4 (07:25→17:15)
[2017-06-25 07:51] LABS: ALANINE AMINOTRANSFERASE 51 IU/L (13-69); ALBUMIN 3.4 g/dl (3.3-4.9); ALBUMIN/GLOBULIN RATIO 1.17; ALKALINE PHOSPHATASE 91 IU/L (42-121); ANION GAP 13 (8-16); ASPARTATE AMINO TRANSFERASE 35 IU/L (15-46); BLOOD UREA NITROGEN 61 mg/dl (7-20); CALCIUM 8.9 mg/dl (8.4-10.2); CARBON DIOXIDE 38 mmol/L (21-31); CHLORIDE 95 mmol/L (97-110); CREATININE 2.48 mg/dl (0.61-1.24); GLUCOSE 92 mg/dl (70-220); POTASSIUM 3.9 mmol/L (3.5-5.1); SODIUM 142 mmol/L (135-144); TOTAL PROTEIN 6.3 g/dl (6.1-8.1)
[2017-06-25 08:17] LABS: MAGNESIUM 2.3 mg/dl (1.7-2.5)
[2017-06-25] MEDS: ASPIRIN 81 MG TAB PO (09:01)
[2017-06-25] MEDS: BENAZEPRIL 40 MG TAB PO (09:01)
[2017-06-25] MEDS: NIFEdipine (XL) 60 MG TAB PO (09:02)
[2017-06-25] MEDS: MAGNESIUM HYDROXIDE 30ML CUP PO (09:04)
[2017-06-25] MEDS: SALMETEROL/FLUTICASONE 250/50 INHA INH ×2 (09:06)
[2017-06-25 14:19] LABS: ADD MAN DIFF? NO
[2017-06-25 14:21] LABS: WHITE BLOOD COUNT 6.9 10^3/ul (4.8-10.8)
[2017-06-25 14:21] LABS: BASOPHILS % 0.4 % (0.0-2.0); EOSINOPHILS # 0.4 10^3/ul (0.0-0.5); EOSINOPHILS % 6.1 % (0.0-7.0); HEMATOCRIT 27.1 % (42.0-52.0); HEMOGLOBIN 8.7 g/dl (14.0-18.0); LYMPHOCYTES # 1.5 10^3/ul (0.8-2.9); LYMPHOCYTES % 21.4 % (15.0-51.0); MEAN CORPUSCULAR HEMOGLOBIN 27.5 pg (29.0-33.0); MEAN CORPUSCULAR HGB CONC 32.1 g/dl (32.0-37.0); MEAN CORPUSCULAR VOLUME 85.8 fl (82.0-101.0); MEAN PLATELET VOLUME 9.8 fl (7.4-10.4); MONOCYTE # 0.8 10^3/ul (0.3-0.9); MONOCYTES % 11.6 % (0.0-11.0); NEUTROPHIL # 4.1 10^3/ul (1.6-7.5); NEUTROPHILS % 60.2 % (39.0-77.0); PLATELET COUNT 308 10^3/UL (140-415); RED BLOOD COUNT 3.16 10^6/ul (4.70-6.10); RED CELL DISTRIBUTION WIDTH 13.2 % (11.5-14.5)
== END 2017-06-25 17:36 | disposition home or self-care (01) | DRG 291 ==
LOC: FTE 06:53 → TEL 11:04
DX: I13.0 Hypertensive heart and chronic kidney disease with heart failure and stage 1 through stage 4 chronic kidney disease, or unspecified chronic kidney disease (principal); I50.33 Acute on chronic diastolic (congestive) heart failure; E11.22 Type 2 diabetes mellitus with diabetic chronic kidney disease; E11.42 Type 2 diabetes mellitus with diabetic polyneuropathy; Z68.41 Body mass index [BMI] 40.0-44.9, adult; N18.3 Chronic kidney disease, stage 3 (moderate); D63.1 Anemia in chronic kidney disease; N40.0 Benign prostatic hyperplasia without lower urinary tract symptoms; E66.9 Obesity, unspecified; E78.5 Hyperlipidemia, unspecified; E87.6 Hypokalemia; E88.09 Other disorders of plasma-protein metabolism, not elsewhere classified; E11.610 Type 2 diabetes mellitus with diabetic neuropathic arthropathy; F14.10 Cocaine abuse, uncomplicated; M21.371 Foot drop, right foot; Z79.4 Long term (current) use of insulin
CPT/HCPCS: 36415; 71045; 80048; 80053; 80061; 80069; 80076; 80307; 81001; 82550; 82553; 82575; 82728; 82962; 83540; 83735; 83880; 84156; 84484; 85014; 85018; 85025; 85045; 86038; 86703; 86803; 87040; 87340; 87400; 90686; 93005; 93971; 94010; 94760; 96374; 96375; 99285-25

== ENCOUNTER 2017-07-08 12:36 | Inpatient (IN) | payer OTHER ==
[2017-07-08] MEDS: ASPIRIN 325 MG TAB PO (13:15)
[2017-07-08] MEDS: DILTIAZEM 25 MG INJ IV ×2 (13:15→15:41)
[2017-07-08] MEDS: ENOXAPARIN 100 MG/ML SYG SC (13:16)
[2017-07-08 13:28] LABS: ADD MAN DIFF? NO
[2017-07-08 13:31] LABS: WHITE BLOOD COUNT 6.1 10^3/ul (4.8-10.8)
[2017-07-08 13:31] LABS: BASOPHIL # 0.1 10^3/ul (0.0-0.1); BASOPHILS % 0.8 % (0.0-2.0); EOSINOPHILS # 0.4 10^3/ul (0.0-0.5); EOSINOPHILS % 5.7 % (0.0-7.0); HEMATOCRIT 24.4 % (42.0-52.0); HEMOGLOBIN 8.1 g/dl (14.0-18.0); MEAN CORPUSCULAR HGB CONC 33.2 g/dl (32.0-37.0); MEAN CORPUSCULAR VOLUME 84.4 fl (82.0-101.0); MONOCYTE # 0.5 10^3/ul (0.3-0.9); NEUTROPHIL # 4.1 10^3/ul (1.6-7.5); PLATELET COUNT 225 10^3/UL (140-415); RED BLOOD COUNT 2.89 10^6/ul (4.70-6.10); RED CELL DISTRIBUTION WIDTH 13.4 % (11.5-14.5)
[2017-07-08] MEDS: DILTIAZEM-D5W 125MG/125ML DRIP 125 ML IV (13:47)
[2017-07-08 13:54] LABS: INR 1.01; PROTIME 13.4 Sec (11.9-14.9)
[2017-07-08 13:55] LABS: ALANINE AMINOTRANSFERASE 57 IU/L (13-69); ALBUMIN 3.5 g/dl (3.3-4.9); ALBUMIN/GLOBULIN RATIO 1.16; ALKALINE PHOSPHATASE 102 IU/L (42-121); ANION GAP 16 (8-16); ASPARTATE AMINO TRANSFERASE 30 IU/L (15-46); BILIRUBIN,INDIRECT 0.2 mg/dl (0-1.1); BILIRUBIN,TOTAL 0.2 mg/dl (0.2-1.3); BLOOD UREA NITROGEN 56 mg/dl (7-20); CALCIUM 9.2 mg/dl (8.4-10.2); CARBON DIOXIDE 25 mmol/L (21-31); CHLORIDE 108 mmol/L (97-110); CREATININE 2.58 mg/dl (0.61-1.24); GLUCOSE 137 mg/dl (70-220); SODIUM 145 mmol/L (135-144); TOTAL PROTEIN 6.5 g/dl (6.1-8.1)
[2017-07-08 13:56] LABS: PARTIAL THROMBOPLASTIN TIME 68.1 Sec (25.0-35.0)
[2017-07-08 14:07] LABS: B-TYPE NATRIURETIC PEPTIDE 4610 PG/ML (0-125)
[2017-07-08 14:11] LABS: TROPONIN-I < 0.012 ng/ml (0.00-0.12)
[2017-07-08] MEDS: HYDROmorphONE 1 MG/ML SYG IV (14:45)
[2017-07-08] MEDS: ONDANSETRON 4 MG INJ IV ×2 (14:45→16:53)
[2017-07-08] MEDS ORDERED: DILTIAZEM-D5W 125MG/125ML DRIP 125 ML IV (16:30)
[2017-07-08] MEDS ORDERED: ONDANSETRON 4 MG INJ IV (16:30)
[2017-07-08] MEDS ORDERED: NACL 0.9% 3 ML SYG IV (16:30)
[2017-07-08] MEDS ORDERED: NA PHOSPHATE/BIPHOS 133 ML ENEMA PR (16:30)
[2017-07-08] MEDS ORDERED: ACETAMINOPHEN 325 MG TAB PO ×2 (16:30)
[2017-07-08] MEDS ORDERED: HYDROCODONE/APAP (5/325) TAB PO (16:30)
[2017-07-08] MEDS ORDERED: NITROGLYCERIN (SL) 0.4 MG TAB SL (16:30)
[2017-07-08] MEDS ORDERED: LORAZEPAM 2 MG INJ IV (16:30)
[2017-07-08] MEDS ORDERED: ALBUTEROL/IPRATROPIUM (NEB) 3 ML AMP HHN (16:30)
[2017-07-08] MEDS: TAMSULOSIN (SR) 0.4 MG CAP PO (17:26)
[2017-07-08] MEDS: NATEGLINIDE 60 MG TAB PO (17:26)
[2017-07-08] MEDS ORDERED: DEXTROSE 50% 50 ML SYRINGE IV ×2 (17:30)
[2017-07-08] MEDS ORDERED: NON-FORMULARY/PATIENT OWN MED (Insulin Lispro (Humalog) 0 UNIT) SQ (17:30)
[2017-07-08] MEDS ORDERED: GLUCOSE GEL 15 GRAM TUBE BUCCAL (17:30)
[2017-07-08] MEDS ORDERED: GLUCOSE GEL 15 GRAM TUBE PO ×2 (17:30)
[2017-07-08] MEDS ORDERED: GLUCAGON 1 MG INJ IM (17:30)
[2017-07-08 17:42] LABS: FREE T4 (FREE THYROXINE) 1.22 ng/dl (0.64-1.79)
[2017-07-08] MEDS: FUROSEMIDE 40 MG INJ IV (20:00)
[2017-07-08] MEDS ORDERED: HEPARIN 5,000 UNIT/0.5 ML VIAL SC (21:00)
[2017-07-08] MEDS: morphine 2 MG INJ IV (21:02)
[2017-07-08] MEDS: GABAPENTIN 300 MG CAP PO (23:15)
[2017-07-08] MEDS: APIXABAN 5 MG TABLET PO (23:16)
[2017-07-08] MEDS: ATORVASTATIN 80 MG TAB PO (23:16)
[2017-07-08] MEDS: METOPROLOL 25 MG TAB PO (23:18)
[2017-07-08] MEDS: INSULIN GLARGINE [LANtus] 3 ML PEN SC (23:29)
[2017-07-09] MEDS: FUROSEMIDE 20 MG INJ IV (04:24)
[2017-07-09] MEDS: PANTOPRAZOLE (EC) 40 MG TAB PO ×2 (06:28→06:34)
[2017-07-09] MEDS: GABAPENTIN 300 MG CAP PO ×3 (08:40→20:42)
[2017-07-09] MEDS: NATEGLINIDE 60 MG TAB PO ×3 (08:41→18:35)
[2017-07-09] MEDS: FERROUS SULFATE (EC) 325 MG TAB PO (08:41)
[2017-07-09] MEDS: APIXABAN 5 MG TABLET PO ×2 (08:41→20:43)
[2017-07-09] MEDS: CHOLECALCIFEROL 1,000 UNIT TAB PO (08:41)
[2017-07-09] MEDS: DOCUSATE SODIUM 100 MG CAP PO (08:41)
[2017-07-09] MEDS: EZETIMIBE 10 MG TAB PO (08:41)
[2017-07-09] MEDS: POTASSIUM CHLORIDE (SR) 20 MEQ TAB PO (08:42)
[2017-07-09] MEDS: morphine 2 MG INJ IV (08:47)
[2017-07-09 09:11] LABS: ADD MAN DIFF? NO
[2017-07-09 09:30] LABS: HEMOGLOBIN A1C 6.9 % (0-5.9)
[2017-07-09 09:42] LABS: WHITE BLOOD COUNT 6.4 10^3/ul (4.8-10.8)
[2017-07-09 09:42] LABS: BASOPHILS % 0.6 % (0.0-2.0); EOSINOPHILS # 0.3 10^3/ul (0.0-0.5); EOSINOPHILS % 5.1 % (0.0-7.0); HEMATOCRIT 24.7 % (42.0-52.0); HEMOGLOBIN 7.7 g/dl (14.0-18.0); LYMPHOCYTES # 1.2 10^3/ul (0.8-2.9); LYMPHOCYTES % 18.9 % (15.0-51.0); MEAN CORPUSCULAR HEMOGLOBIN 26.9 pg (29.0-33.0); MEAN CORPUSCULAR HGB CONC 31.2 g/dl (32.0-37.0); MEAN CORPUSCULAR VOLUME 86.4 fl (82.0-101.0); MEAN PLATELET VOLUME 11.6 fl (7.4-10.4); MONOCYTE # 0.7 10^3/ul (0.3-0.9); MONOCYTES % 10.9 % (0.0-11.0); NEUTROPHIL # 4.1 10^3/ul (1.6-7.5); PLATELET COUNT 232 10^3/UL (140-415); RED BLOOD COUNT 2.86 10^6/ul (4.70-6.10); RED CELL DISTRIBUTION WIDTH 13.2 % (11.5-14.5)
[2017-07-09 09:46] LABS: ANION GAP 16 (8-16); BLOOD UREA NITROGEN 63 mg/dl (7-20); CALCIUM 9.2 mg/dl (8.4-10.2); CARBON DIOXIDE 22 mmol/L (21-31); CHLORIDE 106 mmol/L (97-110); CREATININE 3.07 mg/dl (0.61-1.24); GLUCOSE 127 mg/dl (70-220); MAGNESIUM 2.3 mg/dl (1.7-2.5); PHOSPHORUS 6.8 mg/dl (2.5-4.9); POTASSIUM 3.9 mmol/L (3.5-5.1); SODIUM 140 mmol/L (135-144)
[2017-07-09 09:50] LABS: CHOLESTEROL 85 mg/dl (100-200)
[2017-07-09 09:50] LABS: CHOL/HDL RATIO 3.8 RATIO; HDL CHOLESTEROL 22 mg/dl (27-67); LDL CHOLESTEROL,CALCULATED 29 mg/dl; TRIGLYCERIDES 168 mg/dl (0-149)
[2017-07-09] MEDS: NOVOLOG PEN INSULIN ASPART (BOLUS with meals) SC ×2 (12:00→18:05)
[2017-07-09] MEDS: TAMSULOSIN (SR) 0.4 MG CAP PO (18:35)
[2017-07-09] MEDS: ATORVASTATIN 80 MG TAB PO (20:43)
[2017-07-09] MEDS: INSULIN GLARGINE [LANtus] 3 ML PEN SC (20:48)
[2017-07-09] MEDS: morphine LIQ (10 MG/5 ML) CUP PO (20:53)
[2017-07-10] MEDS: PANTOPRAZOLE (EC) 40 MG TAB PO (06:32)
[2017-07-10] MEDS: NOVOLOG PEN INSULIN ASPART (BOLUS with meals) SC ×3 (07:41→17:12)
[2017-07-10] MEDS: GABAPENTIN 300 MG CAP PO ×3 (07:43→20:51)
[2017-07-10] MEDS: APIXABAN 5 MG TABLET PO ×2 (07:43→20:52)
[2017-07-10] MEDS: NATEGLINIDE 60 MG TAB PO ×3 (07:43→17:12)
[2017-07-10] MEDS: MAGNESIUM HYDROXIDE 30ML CUP PO (07:43)
[2017-07-10] MEDS: DOCUSATE SODIUM 100 MG CAP PO (07:43)
[2017-07-10] MEDS: FERROUS SULFATE (EC) 325 MG TAB PO (07:43)
[2017-07-10] MEDS: EZETIMIBE 10 MG TAB PO (07:44)
[2017-07-10] MEDS: CHOLECALCIFEROL 1,000 UNIT TAB PO (07:44)
[2017-07-10] MEDS: POTASSIUM CHLORIDE (SR) 20 MEQ TAB PO (07:44)
[2017-07-10 08:44] LABS: ADD MAN DIFF? NO
[2017-07-10 08:50] LABS: WHITE BLOOD COUNT 5.5 10^3/ul (4.8-10.8)
[2017-07-10 08:50] LABS: BASOPHILS % 0.7 % (0.0-2.0); EOSINOPHILS # 0.4 10^3/ul (0.0-0.5); EOSINOPHILS % 7.1 % (0.0-7.0); HEMOGLOBIN 7.5 g/dl (14.0-18.0); LYMPHOCYTES # 1.3 10^3/ul (0.8-2.9); LYMPHOCYTES % 23.6 % (15.0-51.0); MEAN CORPUSCULAR HGB CONC 31.3 g/dl (32.0-37.0); MEAN CORPUSCULAR VOLUME 86.3 fl (82.0-101.0); MEAN PLATELET VOLUME 11.3 fl (7.4-10.4); MONOCYTE # 0.8 10^3/ul (0.3-0.9); MONOCYTES % 13.8 % (0.0-11.0); NEUTROPHILS % 54.4 % (39.0-77.0); PLATELET COUNT 227 10^3/UL (140-415); RED BLOOD COUNT 2.78 10^6/ul (4.70-6.10); RED CELL DISTRIBUTION WIDTH 13.4 % (11.5-14.5)
[2017-07-10 09:26] LABS: ANION GAP 15 (8-16); BLOOD UREA NITROGEN 60 mg/dl (7-20); CALCIUM 8.7 mg/dl (8.4-10.2); CARBON DIOXIDE 25 mmol/L (21-31); CHLORIDE 108 mmol/L (97-110); CREATININE 2.64 mg/dl (0.61-1.24); GLUCOSE 125 mg/dl (70-220); POTASSIUM 4.6 mmol/L (3.5-5.1); SODIUM 143 mmol/L (135-144)
[2017-07-10] MEDS ORDERED: ALBUTEROL HFA 8 GM INHALER INH (15:00)
[2017-07-10] MEDS: ALBUTEROL/IPRATROPIUM (NEB) 3 ML AMP HHN ×2 (15:23→21:31)
[2017-07-10 15:54] LABS: COCAINE Negative (NEGATIVE)
[2017-07-10 15:57] LABS: AMPHETAMINE/METHAMPHETAMINE Negative (NEGATIVE); BARBITURATES Negative (NEGATIVE); BENZODIAZEPINES Negative (NEGATIVE); CANNABINOIDS Negative (NEGATIVE); OPIATES Positive (NEGATIVE)
[2017-07-10] MEDS: TAMSULOSIN (SR) 0.4 MG CAP PO (16:00)
[2017-07-10] MEDS: BUMETANIDE 1 MG INJ IV (16:37)
[2017-07-10] MEDS: morphine 2 MG INJ IV ×2 (17:48→22:13)
[2017-07-10] MEDS: ATORVASTATIN 80 MG TAB PO (20:51)
[2017-07-10] MEDS: INSULIN GLARGINE [LANtus] 3 ML PEN SC (20:55)
[2017-07-10] MEDS: FUROSEMIDE 40 MG TAB PO (21:23)
[2017-07-11] MEDS: ALBUTEROL/IPRATROPIUM (NEB) 3 ML AMP HHN ×3 (01:51→08:30)
[2017-07-11] MEDS: METHYLPREDNISOLONE 40 MG INJ IV (01:58)
[2017-07-11] MEDS: FUROSEMIDE 20 MG INJ IV (01:58)
[2017-07-11] MEDS: PANTOPRAZOLE (EC) 40 MG TAB PO (05:45)
[2017-07-11] MEDS: FUROSEMIDE 40 MG TAB PO (05:46)
[2017-07-11 07:22] LABS: ADD MAN DIFF? NO
[2017-07-11 07:29] LABS: BASOPHILS % 0.3 % (0.0-2.0); EOSINOPHILS # 0.1 10^3/ul (0.0-0.5); EOSINOPHILS % 0.5 % (0.0-7.0); HEMATOCRIT 26.6 % (42.0-52.0); HEMOGLOBIN 8.4 g/dl (14.0-18.0); LYMPHOCYTES # 0.7 10^3/ul (0.8-2.9); LYMPHOCYTES % 6.2 % (15.0-51.0); MEAN CORPUSCULAR HEMOGLOBIN 27.3 pg (29.0-33.0); MEAN CORPUSCULAR HGB CONC 31.6 g/dl (32.0-37.0); MEAN CORPUSCULAR VOLUME 86.4 fl (82.0-101.0); MEAN PLATELET VOLUME 10.9 fl (7.4-10.4); MONOCYTE # 0.2 10^3/ul (0.3-0.9); MONOCYTES % 1.7 % (0.0-11.0); NEUTROPHIL # 9.8 10^3/ul (1.6-7.5); NEUTROPHILS % 90.9 % (39.0-77.0); PLATELET COUNT 249 10^3/UL (140-415); RED BLOOD COUNT 3.08 10^6/ul (4.70-6.10); RED CELL DISTRIBUTION WIDTH 13.5 % (11.5-14.5)
[2017-07-11 07:29] LABS: WHITE BLOOD COUNT 10.7 10^3/ul (4.8-10.8)
[2017-07-11 07:52] LABS: ANION GAP 18 (8-16); BLOOD UREA NITROGEN 61 mg/dl (7-20); CALCIUM 9.1 mg/dl (8.4-10.2); CARBON DIOXIDE 26 mmol/L (21-31); CHLORIDE 106 mmol/L (97-110); CREATININE 2.38 mg/dl (0.61-1.24); GLUCOSE 143 mg/dl (70-220); POTASSIUM 4.7 mmol/L (3.5-5.1); SODIUM 145 mmol/L (135-144)
[2017-07-11] MEDS: NOVOLOG PEN INSULIN ASPART (BOLUS with meals) SC ×3 (08:10→16:52)
[2017-07-11] MEDS: APIXABAN 5 MG TABLET PO (08:10)
[2017-07-11] MEDS: CHOLECALCIFEROL 1,000 UNIT TAB PO (08:10)
[2017-07-11] MEDS: GABAPENTIN 300 MG CAP PO ×2 (08:11→12:11)
[2017-07-11] MEDS: FERROUS SULFATE (EC) 325 MG TAB PO (08:11)
[2017-07-11] MEDS: POTASSIUM CHLORIDE (SR) 20 MEQ TAB PO (08:11)
[2017-07-11] MEDS: NATEGLINIDE 60 MG TAB PO ×3 (08:11→16:44)
[2017-07-11] MEDS: EZETIMIBE 10 MG TAB PO (08:11)
[2017-07-11] MEDS: DOCUSATE SODIUM 100 MG CAP PO (08:11)
[2017-07-11] MEDS: morphine 2 MG INJ IV ×2 (08:16→12:12)
[2017-07-11] MEDS: BUMETANIDE 1 MG TAB PO ×2 (10:23→16:44)
[2017-07-11] MEDS: hydrALAzine 20 MG INJ IV (11:44)
[2017-07-11] MEDS ORDERED: hydrALAzine 20 MG INJ IV (14:30)
[2017-07-11] MEDS: LEVALBUTEROL (NEB) 0.63 MG/3 ML AMP HHN (15:28)
[2017-07-11] MEDS: TAMSULOSIN (SR) 0.4 MG CAP PO (16:44)
== END 2017-07-11 18:04 | disposition home or self-care (01) | DRG 292 ==
LOC: MS4 20:08 → E/R 12:36 → MS4 16:07
DX: I50.33 Acute on chronic diastolic (congestive) heart failure (principal); I48.0 Paroxysmal atrial fibrillation; N17.9 Acute kidney failure, unspecified; E11.22 Type 2 diabetes mellitus with diabetic chronic kidney disease; Z68.41 Body mass index [BMI] 40.0-44.9, adult; I13.0 Hypertensive heart and chronic kidney disease with heart failure and stage 1 through stage 4 chronic kidney disease, or unspecified chronic kidney disease; N18.3 Chronic kidney disease, stage 3 (moderate); E78.00 Pure hypercholesterolemia, unspecified; E66.9 Obesity, unspecified; Z89.412 Acquired absence of left great toe; D64.9 Anemia, unspecified; Z91.14 Patient's other noncompliance with medication regimen
CPT/HCPCS: 71045; 80048; 80053; 80061; 80307; 82962; 83036; 83735; 83880; 84100; 84439; 84443; 84484; 85025; 85610; 85730; 87081; 93005; 94640; 94664; 96372; 96374; 96375; 96376; 99291-25; J1940

== ENCOUNTER 2017-07-15 16:19 | Inpatient (IN) | payer OTHER ==
[2017-07-15] MEDS: SODIUM CHLORIDE 0.9% 1L BAG IV*
[2017-07-16] MEDS: ACETAMINOPHEN 325 MG TAB PO ×2 (00:35→20:46)
[2017-07-16] MEDS: ONDANSETRON 4 MG INJ IV (00:35)
[2017-07-16] MEDS: morphine 4 MG/ML VIAL IV (00:35)
[2017-07-16] MEDS: DILTIAZEM 25 MG INJ IV (00:45)
[2017-07-16] MEDS: PIPER-TAZO 3.375 GM IV (PMX) 100 ML IVPB ×3 (00:48→22:16)
[2017-07-16 00:52] LABS: ADD MAN DIFF? NO
[2017-07-16 00:56] LABS: WHITE BLOOD COUNT 7.7 10^3/ul (4.8-10.8)
[2017-07-16 00:56] LABS: BASOPHILS % 0.4 % (0.0-2.0); EOSINOPHILS # 0.2 10^3/ul (0.0-0.5); EOSINOPHILS % 2.6 % (0.0-7.0); HEMATOCRIT 25.5 % (42.0-52.0); HEMOGLOBIN 8.3 g/dl (14.0-18.0); LYMPHOCYTES # 0.8 10^3/ul (0.8-2.9); LYMPHOCYTES % 10.9 % (15.0-51.0); MEAN CORPUSCULAR HEMOGLOBIN 27.3 pg (29.0-33.0); MEAN CORPUSCULAR HGB CONC 32.5 g/dl (32.0-37.0); MEAN CORPUSCULAR VOLUME 83.9 fl (82.0-101.0); MEAN PLATELET VOLUME 10.8 fl (7.4-10.4); MONOCYTE # 0.9 10^3/ul (0.3-0.9); MONOCYTES % 11.9 % (0.0-11.0); NEUTROPHIL # 5.7 10^3/ul (1.6-7.5); NEUTROPHILS % 73.8 % (39.0-77.0); PLATELET COUNT 175 10^3/UL (140-415); RED BLOOD COUNT 3.04 10^6/ul (4.70-6.10); RED CELL DISTRIBUTION WIDTH 13.5 % (11.5-14.5)
[2017-07-16 01:02] LABS: ADD UMIC YES; UR ASCORBIC ACID NEGATIVE (NEGATIVE); UR BILIRUBIN (Dip) NEGATIVE (NEGATIVE); UR BLOOD (Dip) NEGATIVE (NEGATIVE); UR CLARITY CLEAR (CLEAR); UR COLOR YELLOW (YELLOW); UR GLUCOSE (Dip) 3+ mg/dL (NEGATIVE); UR KETONES (Dip) NEGATIVE (NEGATIVE); UR LEUKOCYTE ESTERASE (Dip) NEGATIVE Leu/ul (NEGATIVE); UR NITRITE (Dip) NEGATIVE (NEGATIVE); UR RBC 7 /HPF (0-5); UR SPECIFIC GRAVITY (Dip) 1.016 (1.003-1.030); UR TOTAL PROTEIN (Dip) 3+ mg/dl (NEGATIVE); UR UROBILINOGEN (Dip) NEGATIVE (NEGATIVE); UR WBC 4 /HPF (0-5)
[2017-07-16 01:12] LABS: INR 1.22; PROTIME 15.6 Sec (11.9-14.9); PT RATIO 1.2
[2017-07-16 01:16] LABS: LACTIC ACID 0.7 mmol/L (0.5-2.0)
[2017-07-16 01:17] LABS: ALANINE AMINOTRANSFERASE 47 IU/L (13-69); ALBUMIN 3.1 g/dl (3.3-4.9); ALBUMIN/GLOBULIN RATIO 1.06; ALKALINE PHOSPHATASE 92 IU/L (42-121); ANION GAP 10 (8-16); ASPARTATE AMINO TRANSFERASE 32 IU/L (15-46); BILIRUBIN,INDIRECT 0.7 mg/dl (0-1.1); BILIRUBIN,TOTAL 0.7 mg/dl (0.2-1.3); BLOOD UREA NITROGEN 32 mg/dl (7-20); CALCIUM 8.4 mg/dl (8.4-10.2); CARBON DIOXIDE 30 mmol/L (21-31); CHLORIDE 102 mmol/L (97-110); CREATININE 1.93 mg/dl (0.61-1.24); GLUCOSE 149 mg/dl (70-220); POTASSIUM 3.1 mmol/L (3.5-5.1); SODIUM 139 mmol/L (135-144)
[2017-07-16 01:20] LABS: PARTIAL THROMBOPLASTIN TIME 77.7 Sec (25.0-35.0)
[2017-07-16] MEDS: VANCOMYCIN 1 GM (PMX) 250 ML IVPB (01:35)
[2017-07-16] MEDS ORDERED: NACL 0.9% 3 ML SYG IV (02:30)
[2017-07-16] MEDS ORDERED: ONDANSETRON 4 MG TAB PO (02:30)
[2017-07-16] MEDS ORDERED: NITROGLYCERIN (SL) 0.4 MG TAB SL (02:30)
[2017-07-16] MEDS: POTASSIUM CHLORIDE (SR) 20 MEQ TAB PO ×2 (02:58→14:57)
[2017-07-16] MEDS ORDERED: DEXTROSE 50% 50 ML SYRINGE IV ×2 (03:00)
[2017-07-16] MEDS ORDERED: GLUCOSE GEL 15 GRAM TUBE BUCCAL (03:00)
[2017-07-16] MEDS ORDERED: GLUCOSE GEL 15 GRAM TUBE PO ×2 (03:00)
[2017-07-16] MEDS ORDERED: GLUCAGON 1 MG INJ IM (03:00)
[2017-07-16] MEDS: METOPROLOL 5 MG INJ IV ×2 (03:02→10:58)
[2017-07-16 03:03] LABS: LACTIC ACID 0.6 mmol/L (0.5-2.0)
[2017-07-16 03:17] LABS: LIPASE 103 U/L (23-300)
[2017-07-16] MEDS: TAMSULOSIN (SR) 0.4 MG CAP PO ×2 (04:04→20:14)
[2017-07-16] MEDS: DIGOXIN 500 MCG INJ IV (04:04)
[2017-07-16] MEDS: OSELTAMIVIR 75 MG CAP PO ×2 (05:44→20:15)
[2017-07-16 06:22] LABS: LACTIC ACID 0.9 mmol/L (0.5-2.0)
[2017-07-16] MEDS ORDERED: INSULIN LISPRO SQ (07:00)
[2017-07-16] MEDS ORDERED: VANCOMYCIN IV PER PHARMACY XX (07:30)
[2017-07-16 07:31] LABS: ADD MAN DIFF? NO
[2017-07-16 07:33] LABS: BASOPHILS % 0.3 % (0.0-2.0); EOSINOPHILS # 0.2 10^3/ul (0.0-0.5); EOSINOPHILS % 3.3 % (0.0-7.0); HEMATOCRIT 22.8 % (42.0-52.0); HEMOGLOBIN 7.2 g/dl (14.0-18.0); LYMPHOCYTES # 0.7 10^3/ul (0.8-2.9); LYMPHOCYTES % 11.8 % (15.0-51.0); MEAN CORPUSCULAR HEMOGLOBIN 26.8 pg (29.0-33.0); MEAN CORPUSCULAR HGB CONC 31.6 g/dl (32.0-37.0); MEAN CORPUSCULAR VOLUME 84.8 fl (82.0-101.0); MONOCYTE # 0.8 10^3/ul (0.3-0.9); MONOCYTES % 12.8 % (0.0-11.0); NEUTROPHIL # 4.4 10^3/ul (1.6-7.5); NEUTROPHILS % 71.5 % (39.0-77.0); PLATELET COUNT 148 10^3/UL (140-415); RED BLOOD COUNT 2.69 10^6/ul (4.70-6.10); RED CELL DISTRIBUTION WIDTH 13.4 % (11.5-14.5)
[2017-07-16 07:33] LABS: WHITE BLOOD COUNT 6.1 10^3/ul (4.8-10.8)
[2017-07-16] MEDS: INSULIN ASPART [NOVOLOG] 3 ML PEN SC ×4 (08:00→20:23)
[2017-07-16 08:09] LABS: ALANINE AMINOTRANSFERASE 44 IU/L (13-69); ALBUMIN 2.6 g/dl (3.3-4.9); ALKALINE PHOSPHATASE 71 IU/L (42-121); ANION GAP 10 (8-16); ASPARTATE AMINO TRANSFERASE 28 IU/L (15-46); BILIRUBIN,INDIRECT 0.5 mg/dl (0-1.1); BILIRUBIN,TOTAL 0.5 mg/dl (0.2-1.3); BLOOD UREA NITROGEN 31 mg/dl (7-20); CALCIUM 7.7 mg/dl (8.4-10.2); CARBON DIOXIDE 29 mmol/L (21-31); CHLORIDE 106 mmol/L (97-110); CREATININE 1.89 mg/dl (0.61-1.24); GLUCOSE 130 mg/dl (70-220); POTASSIUM 3.3 mmol/L (3.5-5.1); SODIUM 142 mmol/L (135-144); TOTAL PROTEIN 5.2 g/dl (6.1-8.1)
[2017-07-16 08:15] LABS: MAGNESIUM 1.7 mg/dl (1.7-2.5)
[2017-07-16] MEDS: EZETIMIBE 10 MG TAB PO (08:24)
[2017-07-16] MEDS: APIXABAN 5 MG TABLET PO ×2 (08:24→20:14)
[2017-07-16] MEDS: FERROUS SULFATE (EC) 325 MG TAB PO (08:25)
[2017-07-16] MEDS: GABAPENTIN 300 MG CAP PO ×3 (08:27→20:14)
[2017-07-16] MEDS: VANCOMYCIN 1 GM 250 ML IVPB (08:27)
[2017-07-16] MEDS: BUMETANIDE 1 MG TAB PO (17:43)
[2017-07-16] MEDS: ATORVASTATIN 80 MG TAB PO (20:14)
[2017-07-16] MEDS: INSULIN GLARGINE [LANtus] 3 ML PEN SC (20:22)
[2017-07-16] MEDS: LEVALBUTEROL (NEB) 0.63 MG/3 ML AMP HHN (20:36)
[2017-07-17] MEDS: ACCU-CHEK XX (02:38)
[2017-07-17] MEDS: BUMETANIDE 1 MG TAB PO (06:05)
[2017-07-17] MEDS: PIPER-TAZO 3.375 GM IV (PMX) 100 ML IVPB ×3 (06:05→22:02)
[2017-07-17] MEDS: INSULIN ASPART [NOVOLOG] 3 ML PEN SC ×4 (08:00→20:31)
[2017-07-17 08:38] LABS: ADD MAN DIFF? NO
[2017-07-17 08:52] LABS: WHITE BLOOD COUNT 5.2 10^3/ul (4.8-10.8)
[2017-07-17 08:52] LABS: BASOPHILS % 0.6 % (0.0-2.0); EOSINOPHILS # 0.5 10^3/ul (0.0-0.5); EOSINOPHILS % 8.9 % (0.0-7.0); HEMATOCRIT 22.5 % (42.0-52.0); HEMOGLOBIN 7.1 g/dl (14.0-18.0); LYMPHOCYTES # 1.1 10^3/ul (0.8-2.9); LYMPHOCYTES % 21.9 % (15.0-51.0); MEAN CORPUSCULAR HEMOGLOBIN 26.8 pg (29.0-33.0); MEAN CORPUSCULAR HGB CONC 31.6 g/dl (32.0-37.0); MEAN CORPUSCULAR VOLUME 84.9 fl (82.0-101.0); MEAN PLATELET VOLUME 11.4 fl (7.4-10.4); MONOCYTE # 0.8 10^3/ul (0.3-0.9); MONOCYTES % 14.5 % (0.0-11.0); NEUTROPHIL # 2.8 10^3/ul (1.6-7.5); NEUTROPHILS % 53.7 % (39.0-77.0); PLATELET COUNT 174 10^3/UL (140-415); RED BLOOD COUNT 2.65 10^6/ul (4.70-6.10); RED CELL DISTRIBUTION WIDTH 13.7 % (11.5-14.5)
[2017-07-17] MEDS ORDERED: VANCOMYCIN 1 GM 250 ML IVPB (09:00)
[2017-07-17] MEDS ORDERED: VANCOMYCIN 2 GM in DEXTROSE 5% 500 ML IVPB (09:00)
[2017-07-17] MEDS: EZETIMIBE 10 MG TAB PO (09:13)
[2017-07-17] MEDS: FERROUS SULFATE (EC) 325 MG TAB PO (09:13)
[2017-07-17] MEDS: GABAPENTIN 300 MG CAP PO ×3 (09:13→20:20)
[2017-07-17] MEDS: OSELTAMIVIR 75 MG CAP PO ×2 (09:13→20:20)
[2017-07-17] MEDS: APIXABAN 5 MG TABLET PO ×2 (09:14→20:20)
[2017-07-17] MEDS: ACETAMINOPHEN 325 MG TAB PO (09:17)
[2017-07-17 09:23] LABS: ANION GAP 12 (8-16); BLOOD UREA NITROGEN 42 mg/dl (7-20); CARBON DIOXIDE 28 mmol/L (21-31); CHLORIDE 107 mmol/L (97-110); CREATININE 2.61 mg/dl (0.61-1.24); GLUCOSE 87 mg/dl (70-220); MAGNESIUM 2.1 mg/dl (1.7-2.5); POTASSIUM 4.1 mmol/L (3.5-5.1); SODIUM 143 mmol/L (135-144)
[2017-07-17] MEDS: BUMETANIDE 25 MG in DEXTROSE 5% 150 ML IV (18:27)
[2017-07-17] MEDS: hydrALAzine 20 MG INJ IV (18:40)
[2017-07-17] MEDS: morphine 2 MG INJ IV (19:57)
[2017-07-17] MEDS: ATORVASTATIN 80 MG TAB PO (20:20)
[2017-07-17] MEDS: TAMSULOSIN (SR) 0.4 MG CAP PO (20:21)
[2017-07-17] MEDS: INSULIN GLARGINE [LANtus] 3 ML PEN SC (20:32)
[2017-07-18] MEDS: ZOLPIDEM 5 MG TAB PO (01:25)
[2017-07-18] MEDS: ACCU-CHEK XX (01:32)
[2017-07-18] MEDS: PIPER-TAZO 3.375 GM IV (PMX) 100 ML IVPB (06:15)
[2017-07-18] MEDS: INSULIN ASPART [NOVOLOG] 3 ML PEN SC ×2 (08:00→11:51)
[2017-07-18 09:01] LABS: ADD MAN DIFF? NO
[2017-07-18] MEDS: FERROUS SULFATE (EC) 325 MG TAB PO (09:01)
[2017-07-18] MEDS: EZETIMIBE 10 MG TAB PO (09:01)
[2017-07-18] MEDS: APIXABAN 5 MG TABLET PO (09:01)
[2017-07-18] MEDS: OSELTAMIVIR 75 MG CAP PO (09:01)
[2017-07-18] MEDS: GABAPENTIN 300 MG CAP PO ×2 (09:01→12:08)
[2017-07-18 09:06] LABS: WHITE BLOOD COUNT 5.5 10^3/ul (4.8-10.8)
[2017-07-18 09:06] LABS: BASOPHILS % 0.4 % (0.0-2.0); EOSINOPHILS # 0.6 10^3/ul (0.0-0.5); EOSINOPHILS % 10.6 % (0.0-7.0); HEMOGLOBIN 7.6 g/dl (14.0-18.0); LYMPHOCYTES # 1.3 10^3/ul (0.8-2.9); LYMPHOCYTES % 23.3 % (15.0-51.0); MEAN CORPUSCULAR HEMOGLOBIN 26.7 pg (29.0-33.0); MEAN CORPUSCULAR HGB CONC 31.7 g/dl (32.0-37.0); MEAN CORPUSCULAR VOLUME 84.2 fl (82.0-101.0); MEAN PLATELET VOLUME 11.5 fl (7.4-10.4); MONOCYTE # 0.5 10^3/ul (0.3-0.9); MONOCYTES % 9.2 % (0.0-11.0); NEUTROPHIL # 3.1 10^3/ul (1.6-7.5); NEUTROPHILS % 55.9 % (39.0-77.0); PLATELET COUNT 188 10^3/UL (140-415); RED BLOOD COUNT 2.85 10^6/ul (4.70-6.10); RED CELL DISTRIBUTION WIDTH 13.7 % (11.5-14.5)
[2017-07-18 09:24] LABS: ANION GAP 10 (8-16); BLOOD UREA NITROGEN 39 mg/dl (7-20); CALCIUM 8.1 mg/dl (8.4-10.2); CARBON DIOXIDE 29 mmol/L (21-31); CHLORIDE 106 mmol/L (97-110); CREATININE 2.21 mg/dl (0.61-1.24); GLUCOSE 107 mg/dl (70-220); MAGNESIUM 1.9 mg/dl (1.7-2.5); SODIUM 142 mmol/L (135-144)
[2017-07-18] MEDS ORDERED: POTASSIUM CHLORIDE (SR) 20 MEQ TAB PO (11:00)
[2017-07-18] MEDS: POTASSIUM CHLORIDE (SR) 20 MEQ TAB PO ×2 (11:27→15:40)
[2017-07-18] MEDS: AMLODIPINE 5 MG TAB PO (11:27)
== END 2017-07-18 15:43 | disposition home or self-care (01) | DRG 194 ==
LOC: MS4 07-16 01:24 → FTE 16:19
DX: J11.00 Influenza due to unidentified influenza virus with unspecified type of pneumonia (principal); N17.9 Acute kidney failure, unspecified; E11.22 Type 2 diabetes mellitus with diabetic chronic kidney disease; I13.0 Hypertensive heart and chronic kidney disease with heart failure and stage 1 through stage 4 chronic kidney disease, or unspecified chronic kidney disease; N18.3 Chronic kidney disease, stage 3 (moderate); I50.42 Chronic combined systolic (congestive) and diastolic (congestive) heart failure; I48.91 Unspecified atrial fibrillation; E78.5 Hyperlipidemia, unspecified; Z89.412 Acquired absence of left great toe; E87.6 Hypokalemia
CPT/HCPCS: 36415; 71045; 74176; 80048; 80053; 81001; 82962; 83605; 83690; 83735; 84484; 85025; 85610; 85730; 87040; 87045; 87081; 87086; 87400; 93005; 94664; 96374; 96375; 99291-25

== ENCOUNTER 2017-08-23 12:09 | Emergency (ER) | payer OTHER ==
[2017-08-23] MEDS: NICARDipine HCL 30 MG CAPSULE PO (13:39)
== END 2017-08-23 14:12 | disposition home or self-care (01) ==
LOC: E/R 12:09
DX: I10 Essential (primary) hypertension (principal); I50.9 Heart failure, unspecified; E11.9 Type 2 diabetes mellitus without complications; Z79.4 Long term (current) use of insulin; Z87.891 Personal history of nicotine dependence
CPT/HCPCS: 71045; 93005; 99284-25

== ENCOUNTER 2017-11-20 19:16 | Inpatient (IN) | payer OTHER ==
[2017-11-20 20:58] LABS: ADD MAN DIFF? NO
[2017-11-20 21:00] LABS: BASOPHILS % 0.5 % (0.0-2.0); EOSINOPHILS # 0.6 10^3/ul (0.0-0.5); EOSINOPHILS % 7.3 % (0.0-7.0); HEMATOCRIT 27.1 % (42.0-52.0); HEMOGLOBIN 8.5 g/dl (14.0-18.0); LYMPHOCYTES # 1.1 10^3/ul (0.8-2.9); LYMPHOCYTES % 12.5 % (15.0-51.0); MEAN CORPUSCULAR HEMOGLOBIN 26.6 pg (29.0-33.0); MEAN CORPUSCULAR HGB CONC 31.4 g/dl (32.0-37.0); MEAN CORPUSCULAR VOLUME 84.7 fl (82.0-101.0); MEAN PLATELET VOLUME 11.3 fl (7.4-10.4); MONOCYTE # 0.5 10^3/ul (0.3-0.9); MONOCYTES % 6.3 % (0.0-11.0); NEUTROPHIL # 6.2 10^3/ul (1.6-7.5); NEUTROPHILS % 72.9 % (39.0-77.0); PLATELET COUNT 260 10^3/UL (140-415); RED CELL DISTRIBUTION WIDTH 14.1 % (11.5-14.5)
[2017-11-20 21:00] LABS: WHITE BLOOD COUNT 8.5 10^3/ul (4.8-10.8)
[2017-11-20 21:19] LABS: INR 1.02; PROTIME 13.5 Sec (11.9-14.9); PT RATIO 1.1
[2017-11-20 21:35] LABS: ANION GAP 10 (8-16); BLOOD UREA NITROGEN 31 mg/dl (7-20); CALCIUM 8.4 mg/dl (8.4-10.2); CARBON DIOXIDE 30 mmol/L (21-31); CHLORIDE 106 mmol/L (97-110); CREATININE 2.45 mg/dl (0.61-1.24); GLUCOSE 252 mg/dl (70-220); POTASSIUM 3.6 mmol/L (3.5-5.1); SODIUM 142 mmol/L (135-144)
[2017-11-20 21:46] LABS: B-TYPE NATRIURETIC PEPTIDE 6770 PG/ML (0-125); TROPONIN-I 0.018 ng/ml (0.000-0.120)
[2017-11-21] MEDS: NITROGLYCERIN 2% 1 GM OINT PKT TD (00:08)
[2017-11-21] MEDS: FUROSEMIDE 40 MG INJ IV (00:08)
[2017-11-21] MEDS: LEVOFLOXACIN 750MG/D5W (PMX) 150 ML IVPB (00:09)
[2017-11-21] MEDS ORDERED: ACETAMINOPHEN 325 MG TAB PO (00:30)
[2017-11-21] MEDS ORDERED: ONDANSETRON 4 MG INJ IV (01:00)
[2017-11-21] MEDS ORDERED: NACL 0.9% 3 ML SYG IV (01:00)
[2017-11-21] MEDS ORDERED: NITROGLYCERIN (SL) 0.4 MG TAB SL (01:00)
[2017-11-21] MEDS ORDERED: GLUCOSE GEL 15 GRAM TUBE BUCCAL (01:30)
[2017-11-21] MEDS ORDERED: GLUCAGON 1 MG INJ IM (01:30)
[2017-11-21] MEDS ORDERED: GLUCOSE GEL 15 GRAM TUBE PO ×2 (01:30)
[2017-11-21] MEDS ORDERED: DEXTROSE 50% 50 ML SYRINGE IV ×2 (01:30)
[2017-11-21] MEDS: ACCU-CHEK XX (02:10)
[2017-11-21 02:27] LABS: CREATINE KINASE 568 IU/L (23-200)
[2017-11-21] MEDS: hydrALAzine 20 MG INJ IV ×5 (02:34→23:52)
[2017-11-21] MEDS: morphine 2 MG INJ IV ×2 (02:34→23:57)
[2017-11-21 02:40] LABS: CK INDEX 1.2; TROPONIN-I 0.018 ng/ml (0.000-0.120)
[2017-11-21 02:46] LABS: CK-MB 6.96 ng/ml (0.0-2.4)
[2017-11-21] MEDS ORDERED: LEVALBUTEROL (NEB) 0.63 MG/3 ML AMP HHN (04:30)
[2017-11-21] MEDS: BUMETANIDE 6 MG in DEXTROSE 5% 36 ML IV (05:37)
[2017-11-21] MEDS ORDERED: BUMETANIDE 1 MG INJ IV (06:00)
[2017-11-21] MEDS: POTASSIUM CHLORIDE (SR) 20 MEQ TAB PO (06:31)
[2017-11-21] MEDS: ACETAMINOPHEN 325 MG TAB PO (06:31)
[2017-11-21 06:50] LABS: ADD MAN DIFF? NO
[2017-11-21 07:08] LABS: BASOPHIL # 0.1 10^3/ul (0.0-0.1); BASOPHILS % 0.6 % (0.0-2.0); EOSINOPHILS # 0.6 10^3/ul (0.0-0.5); EOSINOPHILS % 6.8 % (0.0-7.0); HEMATOCRIT 25.7 % (42.0-52.0); LYMPHOCYTES # 1.1 10^3/ul (0.8-2.9); LYMPHOCYTES % 11.9 % (15.0-51.0); MEAN CORPUSCULAR HEMOGLOBIN 26.5 pg (29.0-33.0); MEAN CORPUSCULAR HGB CONC 31.1 g/dl (32.0-37.0); MEAN CORPUSCULAR VOLUME 85.1 fl (82.0-101.0); MEAN PLATELET VOLUME 11.2 fl (7.4-10.4); MONOCYTE # 0.7 10^3/ul (0.3-0.9); MONOCYTES % 7.9 % (0.0-11.0); NEUTROPHIL # 6.5 10^3/ul (1.6-7.5); NEUTROPHILS % 72.4 % (39.0-77.0); PLATELET COUNT 249 10^3/UL (140-415); RED BLOOD COUNT 3.02 10^6/ul (4.70-6.10); RED CELL DISTRIBUTION WIDTH 14.2 % (11.5-14.5)
[2017-11-21 07:44] LABS: ALANINE AMINOTRANSFERASE 82 IU/L (13-69); ALKALINE PHOSPHATASE 106 IU/L (42-121); ANION GAP 9 (8-16); ASPARTATE AMINO TRANSFERASE 60 IU/L (15-46); BILIRUBIN,INDIRECT 0.5 mg/dl (0-1.1); BILIRUBIN,TOTAL 0.5 mg/dl (0.2-1.3); BLOOD UREA NITROGEN 31 mg/dl (7-20); CALCIUM 8.3 mg/dl (8.4-10.2); CARBON DIOXIDE 31 mmol/L (21-31); CHLORIDE 107 mmol/L (97-110); CREATININE 2.37 mg/dl (0.61-1.24); GLUCOSE 152 mg/dl (70-220); POTASSIUM 3.6 mmol/L (3.5-5.1); SODIUM 143 mmol/L (135-144); TOTAL PROTEIN 5.5 g/dl (6.1-8.1)
[2017-11-21] MEDS: INSULIN ASPART [NOVOLOG] 3 ML PEN SC ×4 (07:59→21:13)
[2017-11-21] MEDS: INSULIN GLARGINE [LANtus] 3 ML PEN SC (07:59)
[2017-11-21] MEDS: ISOSORBIDE MONONITRATE(SR)30 MG TAB PO (08:09)
[2017-11-21] MEDS: APIXABAN 5 MG TABLET PO ×2 (08:09→20:46)
[2017-11-21 08:53] LABS: B-TYPE NATRIURETIC PEPTIDE 6370 PG/ML (0-125)
[2017-11-21] MEDS ORDERED: LISINOPRIL 20 MG TAB PO (09:00)
[2017-11-21 09:33] LABS: CREATINE KINASE 599 IU/L (23-200)
[2017-11-21 09:44] LABS: CK INDEX 1.3; TROPONIN-I 0.021 ng/ml (0.000-0.120)
[2017-11-21 09:48] LABS: CK-MB 7.58 ng/ml (0.0-2.4)
[2017-11-21] MEDS: ONDANSETRON 4 MG INJ IV (09:53)
[2017-11-21] MEDS: BUMETANIDE 25 MG in DEXTROSE 5% 150 ML IV (13:56)
[2017-11-21] MEDS: EZETIMIBE 10 MG TAB PO (20:46)
[2017-11-21] MEDS: ATORVASTATIN 80 MG TAB PO (20:46)
[2017-11-22] MEDS: hydrALAzine 20 MG INJ IV (02:27)
[2017-11-22] MEDS: ACCU-CHEK XX (02:32)
[2017-11-22] MEDS: ACETAMINOPHEN 325 MG TAB PO (06:25)
[2017-11-22] MEDS: ALBUMIN HUMAN 25% 100 ML IV ×3 (06:27→22:47)
[2017-11-22] MEDS: ISOSORBIDE MONONITRATE(SR)30 MG TAB PO (07:56)
[2017-11-22] MEDS: APIXABAN 5 MG TABLET PO ×2 (07:56→20:41)
[2017-11-22] MEDS: INSULIN GLARGINE [LANtus] 3 ML PEN SC (07:59)
[2017-11-22] MEDS: INSULIN ASPART [NOVOLOG] 3 ML PEN SC ×4 (08:00→20:41)
[2017-11-22] MEDS: morphine 2 MG INJ IV (08:02)
[2017-11-22] MEDS: POLYETHYLENE GLYCOL 17 GM PACKET PO (10:09)
[2017-11-22] MEDS: AMLODIPINE 5 MG TAB PO (10:40)
[2017-11-22 11:44] LABS: ADD MAN DIFF? NO
[2017-11-22 11:48] LABS: BASOPHIL # 0.1 10^3/ul (0.0-0.1); BASOPHILS % 0.6 % (0.0-2.0); EOSINOPHILS # 0.6 10^3/ul (0.0-0.5); EOSINOPHILS % 7.3 % (0.0-7.0); HEMATOCRIT 26.9 % (42.0-52.0); HEMOGLOBIN 8.4 g/dl (14.0-18.0); LYMPHOCYTES # 1.2 10^3/ul (0.8-2.9); LYMPHOCYTES % 14.7 % (15.0-51.0); MEAN CORPUSCULAR HEMOGLOBIN 26.3 pg (29.0-33.0); MEAN CORPUSCULAR HGB CONC 31.2 g/dl (32.0-37.0); MEAN CORPUSCULAR VOLUME 84.1 fl (82.0-101.0); MEAN PLATELET VOLUME 11.5 fl (7.4-10.4); MONOCYTE # 0.6 10^3/ul (0.3-0.9); MONOCYTES % 7.4 % (0.0-11.0); NEUTROPHIL # 5.9 10^3/ul (1.6-7.5); NEUTROPHILS % 69.6 % (39.0-77.0); PLATELET COUNT 287 10^3/UL (140-415); RED CELL DISTRIBUTION WIDTH 14.2 % (11.5-14.5)
[2017-11-22 11:48] LABS: WHITE BLOOD COUNT 8.4 10^3/ul (4.8-10.8)
[2017-11-22] MEDS: NIFEdipine (XL) 30 MG TAB PO (11:55)
[2017-11-22 12:11] LABS: ALANINE AMINOTRANSFERASE 56 IU/L (13-69); ALBUMIN 3.2 g/dl (3.3-4.9); ALBUMIN/GLOBULIN RATIO 1.23; ALKALINE PHOSPHATASE 90 IU/L (42-121); ANION GAP 10 (8-16); ASPARTATE AMINO TRANSFERASE 28 IU/L (15-46); BILIRUBIN,INDIRECT 0.7 mg/dl (0-1.1); BILIRUBIN,TOTAL 0.7 mg/dl (0.2-1.3); BLOOD UREA NITROGEN 33 mg/dl (7-20); CALCIUM 8.6 mg/dl (8.4-10.2); CARBON DIOXIDE 30 mmol/L (21-31); CHLORIDE 105 mmol/L (97-110); CREATININE 2.73 mg/dl (0.61-1.24); GLUCOSE 126 mg/dl (70-220); IRON 56 ug/dl (35-150); POTASSIUM 3.6 mmol/L (3.5-5.1); SODIUM 141 mmol/L (135-144); TOTAL PROTEIN 5.8 g/dl (6.1-8.1)
[2017-11-22 12:20] LABS: % IRON SATURATION 22 % SAT (22-52); TOTAL IRON BINDING CAPACITY 251 ug/dl (241-421)
[2017-11-22 12:34] LABS: HEMOGLOBIN A1C 8.6 % (0-5.9)
[2017-11-22] MEDS: BUMETANIDE 25 MG in DEXTROSE 5% 150 ML IV (15:43)
[2017-11-22] MEDS: EZETIMIBE 10 MG TAB PO (20:41)
[2017-11-22] MEDS: ATORVASTATIN 80 MG TAB PO (20:41)
[2017-11-23] MEDS: ACCU-CHEK XX (01:09)
[2017-11-23] MEDS: NITROGLYCERIN (SL) 0.4 MG TAB SL ×2 (05:59→06:11)
[2017-11-23 06:49] LABS: ADD MAN DIFF? NO
[2017-11-23 06:54] LABS: BASOPHILS % 0.5 % (0.0-2.0); EOSINOPHILS # 0.5 10^3/ul (0.0-0.5); EOSINOPHILS % 8.2 % (0.0-7.0); HEMATOCRIT 23.9 % (42.0-52.0); HEMOGLOBIN 7.7 g/dl (14.0-18.0); LYMPHOCYTES # 1.3 10^3/ul (0.8-2.9); LYMPHOCYTES % 21.1 % (15.0-51.0); MEAN CORPUSCULAR HEMOGLOBIN 26.5 pg (29.0-33.0); MEAN CORPUSCULAR HGB CONC 32.2 g/dl (32.0-37.0); MEAN CORPUSCULAR VOLUME 82.1 fl (82.0-101.0); MEAN PLATELET VOLUME 10.6 fl (7.4-10.4); MONOCYTE # 0.6 10^3/ul (0.3-0.9); MONOCYTES % 9.7 % (0.0-11.0); NEUTROPHIL # 3.6 10^3/ul (1.6-7.5); NEUTROPHILS % 60.2 % (39.0-77.0); PLATELET COUNT 230 10^3/UL (140-415); RED BLOOD COUNT 2.91 10^6/ul (4.70-6.10); RED CELL DISTRIBUTION WIDTH 13.9 % (11.5-14.5)
[2017-11-23 07:32] LABS: ALANINE AMINOTRANSFERASE 45 IU/L (13-69); ALKALINE PHOSPHATASE 78 IU/L (42-121); ANION GAP 11 (8-16); ASPARTATE AMINO TRANSFERASE 21 IU/L (15-46); BILIRUBIN,INDIRECT 0.8 mg/dl (0-1.1); BILIRUBIN,TOTAL 0.8 mg/dl (0.2-1.3); BLOOD UREA NITROGEN 35 mg/dl (7-20); CALCIUM 8.3 mg/dl (8.4-10.2); CARBON DIOXIDE 30 mmol/L (21-31); CHLORIDE 102 mmol/L (97-110); CREATININE 2.64 mg/dl (0.61-1.24); GLUCOSE 98 mg/dl (70-220); SODIUM 140 mmol/L (135-144)
[2017-11-23 07:33] LABS: ALBUMIN 2.9 g/dl (3.3-4.9); TOTAL PROTEIN 5.3 g/dl (6.1-8.1)
[2017-11-23] MEDS: INSULIN ASPART [NOVOLOG] 3 ML PEN SC ×4 (07:55→20:28)
[2017-11-23] MEDS: ALBUMIN HUMAN 25% 100 ML IV ×3 (08:07→22:49)
[2017-11-23] MEDS: ISOSORBIDE MONONITRATE(SR)30 MG TAB PO (08:08)
[2017-11-23] MEDS: POLYETHYLENE GLYCOL 17 GM PACKET PO ×2 (08:08→12:12)
[2017-11-23] MEDS: APIXABAN 5 MG TABLET PO ×2 (08:08→20:16)
[2017-11-23] MEDS: NIFEdipine (XL) 30 MG TAB PO (08:08)
[2017-11-23 08:13] LABS: MAGNESIUM 1.9 mg/dl (1.7-2.5)
[2017-11-23] MEDS: INSULIN GLARGINE [LANtus] 3 ML PEN SC (08:17)
[2017-11-23] MEDS: POTASSIUM CHLORIDE (SR) 20 MEQ TAB PO (09:00)
[2017-11-23] MEDS: BUMETANIDE 25 MG in DEXTROSE 5% 150 ML IV (13:13)
[2017-11-23] MEDS: SENNA TAB PO ×2 (13:39→20:16)
[2017-11-23] MEDS: hydrALAzine 20 MG INJ IV (16:28)
[2017-11-23] MEDS: EZETIMIBE 10 MG TAB PO (20:16)
[2017-11-23] MEDS: ATORVASTATIN 80 MG TAB PO (20:16)
[2017-11-24] MEDS: ACCU-CHEK XX ×2 (02:07→22:41)
[2017-11-24] MEDS: ZOLPIDEM 5 MG TAB PO ×2 (03:16→22:58)
[2017-11-24 06:13] LABS: ADD MAN DIFF? NO
[2017-11-24 06:15] LABS: WHITE BLOOD COUNT 7.8 10^3/ul (4.8-10.8)
[2017-11-24 06:15] LABS: BASOPHILS % 0.4 % (0.0-2.0); EOSINOPHILS # 0.5 10^3/ul (0.0-0.5); EOSINOPHILS % 6.4 % (0.0-7.0); HEMATOCRIT 26.3 % (42.0-52.0); HEMOGLOBIN 8.5 g/dl (14.0-18.0); LYMPHOCYTES # 1.4 10^3/ul (0.8-2.9); LYMPHOCYTES % 17.3 % (15.0-51.0); MEAN CORPUSCULAR HEMOGLOBIN 26.6 pg (29.0-33.0); MEAN CORPUSCULAR HGB CONC 32.3 g/dl (32.0-37.0); MEAN CORPUSCULAR VOLUME 82.4 fl (82.0-101.0); MEAN PLATELET VOLUME 10.8 fl (7.4-10.4); MONOCYTE # 0.6 10^3/ul (0.3-0.9); MONOCYTES % 7.8 % (0.0-11.0); NEUTROPHIL # 5.3 10^3/ul (1.6-7.5); NEUTROPHILS % 67.8 % (39.0-77.0); PLATELET COUNT 243 10^3/UL (140-415); RED BLOOD COUNT 3.19 10^6/ul (4.70-6.10); RED CELL DISTRIBUTION WIDTH 13.9 % (11.5-14.5)
[2017-11-24] MEDS: ALBUMIN HUMAN 25% 100 ML IV ×3 (06:19→22:57)
[2017-11-24 06:37] LABS: ALANINE AMINOTRANSFERASE 40 IU/L (13-69); ALBUMIN 3.9 g/dl (3.3-4.9); ALBUMIN/GLOBULIN RATIO 1.62; ALKALINE PHOSPHATASE 85 IU/L (42-121); ANION GAP 13 (8-16); ASPARTATE AMINO TRANSFERASE 22 IU/L (15-46); BILIRUBIN,INDIRECT 0.9 mg/dl (0-1.1); BILIRUBIN,TOTAL 0.9 mg/dl (0.2-1.3); BLOOD UREA NITROGEN 38 mg/dl (7-20); CALCIUM 8.9 mg/dl (8.4-10.2); CARBON DIOXIDE 31 mmol/L (21-31); CHLORIDE 102 mmol/L (97-110); CREATININE 2.57 mg/dl (0.61-1.24); GLUCOSE 143 mg/dl (70-220); POTASSIUM 3.5 mmol/L (3.5-5.1); SODIUM 142 mmol/L (135-144); TOTAL PROTEIN 6.3 g/dl (6.1-8.1)
[2017-11-24] MEDS: POLYETHYLENE GLYCOL 17 GM PACKET PO (08:42)
[2017-11-24] MEDS: SENNA TAB PO ×2 (08:42→22:55)
[2017-11-24] MEDS: ISOSORBIDE MONONITRATE(SR)30 MG TAB PO (08:43)
[2017-11-24] MEDS: NIFEdipine (XL) 30 MG TAB PO ×2 (08:43→21:00)
[2017-11-24] MEDS: APIXABAN 5 MG TABLET PO ×2 (08:44→22:55)
[2017-11-24] MEDS: POTASSIUM CHLORIDE (SR) 20 MEQ TAB PO (08:44)
[2017-11-24] MEDS: INSULIN ASPART [NOVOLOG] 3 ML PEN SC ×4 (08:51→22:25)
[2017-11-24] MEDS: INSULIN GLARGINE [LANtus] 3 ML PEN SC (08:51)
[2017-11-24] MEDS: BUMETANIDE 25 MG in DEXTROSE 5% 150 ML IV (13:31)
[2017-11-24] MEDS: ATORVASTATIN 80 MG TAB PO (22:55)
[2017-11-24] MEDS: EZETIMIBE 10 MG TAB PO (22:55)
[2017-11-25] MEDS: hydrALAzine 20 MG INJ IV (04:42)
[2017-11-25] MEDS ORDERED: HYDROCODONE/APAP (5/325) TAB PO (07:00)
[2017-11-25] MEDS: HYDROCODONE/APAP (5/325) TAB PO (07:08)
[2017-11-25 07:46] LABS: ADD MAN DIFF? NO
[2017-11-25 07:49] LABS: WHITE BLOOD COUNT 7.3 10^3/ul (4.8-10.8)
[2017-11-25 07:49] LABS: BASOPHILS % 0.3 % (0.0-2.0); EOSINOPHILS # 0.5 10^3/ul (0.0-0.5); EOSINOPHILS % 6.3 % (0.0-7.0); HEMATOCRIT 24.7 % (42.0-52.0); HEMOGLOBIN 8.1 g/dl (14.0-18.0); LYMPHOCYTES # 1.2 10^3/ul (0.8-2.9); LYMPHOCYTES % 16.3 % (15.0-51.0); MEAN CORPUSCULAR HEMOGLOBIN 26.6 pg (29.0-33.0); MEAN CORPUSCULAR HGB CONC 32.8 g/dl (32.0-37.0); MEAN CORPUSCULAR VOLUME 81.3 fl (82.0-101.0); MEAN PLATELET VOLUME 10.9 fl (7.4-10.4); MONOCYTE # 0.6 10^3/ul (0.3-0.9); MONOCYTES % 8.8 % (0.0-11.0); NEUTROPHIL # 4.9 10^3/ul (1.6-7.5); NEUTROPHILS % 68.2 % (39.0-77.0); PLATELET COUNT 217 10^3/UL (140-415); RED BLOOD COUNT 3.04 10^6/ul (4.70-6.10); RED CELL DISTRIBUTION WIDTH 14.1 % (11.5-14.5)
[2017-11-25 08:13] LABS: ALANINE AMINOTRANSFERASE 36 IU/L (13-69); ALBUMIN 3.9 g/dl (3.3-4.9); ALBUMIN/GLOBULIN RATIO 1.69; ALKALINE PHOSPHATASE 76 IU/L (42-121); ANION GAP 12 (8-16); ASPARTATE AMINO TRANSFERASE 20 IU/L (15-46); BLOOD UREA NITROGEN 43 mg/dl (7-20); CALCIUM 9.3 mg/dl (8.4-10.2); CARBON DIOXIDE 30 mmol/L (21-31); CHLORIDE 104 mmol/L (97-110); CREATININE 2.39 mg/dl (0.61-1.24); GLUCOSE 129 mg/dl (70-220); POTASSIUM 3.1 mmol/L (3.5-5.1); SODIUM 143 mmol/L (135-144); TOTAL PROTEIN 6.2 g/dl (6.1-8.1)
[2017-11-25] MEDS: INSULIN GLARGINE [LANtus] 3 ML PEN SC (08:29)
[2017-11-25] MEDS: INSULIN ASPART [NOVOLOG] 3 ML PEN SC ×2 (08:29→11:50)
[2017-11-25] MEDS: ISOSORBIDE MONONITRATE(SR)30 MG TAB PO (09:29)
[2017-11-25] MEDS: APIXABAN 5 MG TABLET PO (09:29)
[2017-11-25] MEDS: POTASSIUM CHLORIDE (SR) 20 MEQ TAB PO ×2 (09:29→14:11)
[2017-11-25] MEDS: POLYETHYLENE GLYCOL 17 GM PACKET PO (09:30)
[2017-11-25] MEDS: SENNA TAB PO (09:30)
[2017-11-25] MEDS: NIFEdipine (XL) 30 MG TAB PO (09:30)
[2017-11-25] MEDS: BUMETANIDE 25 MG in DEXTROSE 5% 150 ML IV (14:11)
== END 2017-11-25 16:03 | disposition home or self-care (01) | DRG 291 ==
LOC: E/R 19:16 → TEL 11-21 00:05
DX: I13.0 Hypertensive heart and chronic kidney disease with heart failure and stage 1 through stage 4 chronic kidney disease, or unspecified chronic kidney disease (principal); I50.33 Acute on chronic diastolic (congestive) heart failure; N17.9 Acute kidney failure, unspecified; D63.1 Anemia in chronic kidney disease; E11.22 Type 2 diabetes mellitus with diabetic chronic kidney disease; N18.3 Chronic kidney disease, stage 3 (moderate); E66.9 Obesity, unspecified; E87.6 Hypokalemia; Z68.38 Body mass index [BMI] 38.0-38.9, adult
CPT/HCPCS: 36415; 71045; 80048; 80053; 82550; 82553; 82728; 82962; 83036; 83540; 83735; 83880; 84484; 85025; 85610; 87081; 93005; 96374; 96375; 99285-25

== ENCOUNTER 2017-12-10 23:15 | Inpatient (IN) | payer OTHER ==
[2017-12-11 00:30] LABS: ADD MAN DIFF? NO
[2017-12-11 00:32] LABS: WHITE BLOOD COUNT 7.8 10^3/ul (4.8-10.8)
[2017-12-11 00:32] LABS: BASOPHILS % 0.4 % (0.0-2.0); EOSINOPHILS # 0.4 10^3/ul (0.0-0.5); EOSINOPHILS % 4.5 % (0.0-7.0); HEMATOCRIT 28.7 % (42.0-52.0); HEMOGLOBIN 9.5 g/dl (14.0-18.0); LYMPHOCYTES # 0.7 10^3/ul (0.8-2.9); LYMPHOCYTES % 8.8 % (15.0-51.0); MEAN CORPUSCULAR HEMOGLOBIN 26.8 pg (29.0-33.0); MEAN CORPUSCULAR HGB CONC 33.1 g/dl (32.0-37.0); MEAN CORPUSCULAR VOLUME 81.1 fl (82.0-101.0); MONOCYTE # 0.6 10^3/ul (0.3-0.9); MONOCYTES % 8.3 % (0.0-11.0); NEUTROPHILS % 77.6 % (39.0-77.0); PLATELET COUNT 189 10^3/UL (140-415); RED BLOOD COUNT 3.54 10^6/ul (4.70-6.10); RED CELL DISTRIBUTION WIDTH 13.6 % (11.5-14.5)
[2017-12-11] MEDS: SODIUM CHLORIDE 0.9% 1L BAG IV* (00:39)
[2017-12-11] MEDS: CEFEPIME 2GM/50 ML (PMX) 50 ML IVPB ×3 (00:40→19:08)
[2017-12-11 00:52] LABS: INR 1.13; PROTIME 14.7 Sec (11.9-14.9); PT RATIO 1.1
[2017-12-11 00:53] LABS: PARTIAL THROMBOPLASTIN TIME 64.3 Sec (25.0-35.0)
[2017-12-11 00:59] LABS: ALANINE AMINOTRANSFERASE 73 IU/L (13-69); ALBUMIN 3.5 g/dl (3.3-4.9); ALBUMIN/GLOBULIN RATIO 1.45; ALKALINE PHOSPHATASE 80 IU/L (42-121); ANION GAP 15 (8-16); ASPARTATE AMINO TRANSFERASE 45 IU/L (15-46); BILIRUBIN,INDIRECT 0.6 mg/dl (0-1.1); BILIRUBIN,TOTAL 0.6 mg/dl (0.2-1.3); BLOOD UREA NITROGEN 50 mg/dl (7-20); CALCIUM 8.5 mg/dl (8.4-10.2); CARBON DIOXIDE 28 mmol/L (21-31); CHLORIDE 97 mmol/L (97-110); GLUCOSE 170 mg/dl (70-220); SODIUM 137 mmol/L (135-144); TOTAL PROTEIN 5.9 g/dl (6.1-8.1)
[2017-12-11 01:07] LABS: POTASSIUM 2.9 mmol/L (3.5-5.1)
[2017-12-11 01:10] LABS: TROPONIN-I 0.089 ng/ml (0.000-0.120)
[2017-12-11] MEDS: ACETAMINOPHEN 325 MG TAB PO ×2 (01:35→16:02)
[2017-12-11] MEDS: POTASSIUM CHLORIDE (SR) 20 MEQ TAB PO (01:35)
[2017-12-11] MEDS: VANCOMYCIN 1 GM (PMX) 250 ML IVPB (01:41)
[2017-12-11] MEDS ORDERED: NITROGLYCERIN (SL) 0.4 MG TAB SL (03:00)
[2017-12-11] MEDS ORDERED: DEXTROSE 50% 50 ML SYRINGE IV ×2 (03:00)
[2017-12-11] MEDS ORDERED: GLUCOSE GEL 15 GRAM TUBE PO ×2 (03:00)
[2017-12-11] MEDS ORDERED: GLUCOSE GEL 15 GRAM TUBE BUCCAL (03:00)
[2017-12-11] MEDS ORDERED: NACL 0.9% 3 ML SYG IV (03:00)
[2017-12-11] MEDS ORDERED: GLUCAGON 1 MG INJ IM (03:00)
[2017-12-11 03:59] LABS: CREATINE KINASE 171 IU/L (23-200)
[2017-12-11 03:59] LABS: LACTIC ACID 0.6 mmol/L (0.5-2.0)
[2017-12-11 04:11] LABS: CK INDEX 0.8; CK-MB 1.29 ng/ml (0.0-2.4); TROPONIN-I 0.112 ng/ml (0.000-0.120)
[2017-12-11 04:34] LABS: B-TYPE NATRIURETIC PEPTIDE 5220 PG/ML (0-125)
[2017-12-11 04:59] LABS: ADD UMIC YES; UR ASCORBIC ACID NEGATIVE (NEGATIVE); UR BACTERIA FEW /HPF (NONE SEEN); UR BILIRUBIN (Dip) NEGATIVE (NEGATIVE); UR BLOOD (Dip) NEGATIVE (NEGATIVE); UR CLARITY CLEAR (CLEAR); UR COLOR YELLOW (YELLOW); UR GLUCOSE (Dip) 3+ mg/dL (NEGATIVE); UR KETONES (Dip) NEGATIVE (NEGATIVE); UR LEUKOCYTE ESTERASE (Dip) NEGATIVE Leu/ul (NEGATIVE); UR NITRITE (Dip) NEGATIVE (NEGATIVE); UR RBC 9 /HPF (0-5); UR SPECIFIC GRAVITY (Dip) 1.012 (1.003-1.030); UR TOTAL PROTEIN (Dip) 3+ mg/dl (NEGATIVE); UR UROBILINOGEN (Dip) NEGATIVE (NEGATIVE); UR WBC 3 /HPF (0-5)
[2017-12-11 06:39] LABS: LACTIC ACID 0.6 mmol/L (0.5-2.0)
[2017-12-11] MEDS: BUMETANIDE 1 MG TAB PO (07:08)
[2017-12-11 08:39] LABS: CREATINE KINASE 218 IU/L (23-200)
[2017-12-11 08:52] LABS: CK INDEX 1.4; CK-MB 3.13 ng/ml (0.0-2.4)
[2017-12-11 08:56] LABS: TROPONIN-I 0.342 ng/ml (0.000-0.120)
[2017-12-11] MEDS ORDERED: INSULIN GLARGINE [LANtus] 3 ML PEN SC (09:00)
[2017-12-11] MEDS: APIXABAN 5 MG TABLET PO (09:50)
[2017-12-11] MEDS: NIFEdipine (XL) 60 MG TAB PO ×2 (09:51→21:29)
[2017-12-11] MEDS: POTASSIUM CHLORIDE (SR) 10 MEQ TAB PO ×2 (09:51→21:29)
[2017-12-11] MEDS: HEPARIN 5,000 UNIT/0.5 ML VIAL SC (09:59)
[2017-12-11] MEDS ORDERED: HEPARIN 1000 UNITS/ML 10 ML INJ IV (11:30)
[2017-12-11 12:20] LABS: ABNORMAL IP MESSAGE 1; ADD MAN DIFF? NO; BASOPHILS % 0.3 % (0.0-2.0); EOSINOPHILS # 0.2 10^3/ul (0.0-0.5); EOSINOPHILS % 3.3 % (0.0-7.0); HEMATOCRIT 26.8 % (42.0-52.0); HEMOGLOBIN 8.7 g/dl (14.0-18.0); LYMPHOCYTES # 0.6 10^3/ul (0.8-2.9); LYMPHOCYTES % 8.3 % (15.0-51.0); MEAN CORPUSCULAR HEMOGLOBIN 26.1 pg (29.0-33.0); MEAN CORPUSCULAR HGB CONC 32.5 g/dl (32.0-37.0); MEAN CORPUSCULAR VOLUME 80.5 fl (82.0-101.0); MEAN PLATELET VOLUME 11.1 fl (7.4-10.4); MONOCYTE # 0.6 10^3/ul (0.3-0.9); MONOCYTES % 8.7 % (0.0-11.0); NEUTROPHIL # 5.3 10^3/ul (1.6-7.5); NEUTROPHILS % 78.8 % (39.0-77.0); PLATELET COUNT 144 10^3/UL (140-415); POSITIVE DIFF @See below; RED BLOOD COUNT 3.33 10^6/ul (4.70-6.10)
[2017-12-11 12:20] LABS: WHITE BLOOD COUNT 6.7 10^3/ul (4.8-10.8)
[2017-12-11 12:39] LABS: INR 1.37; PROTIME 17.1 Sec (11.9-14.9); PT RATIO 1.3
[2017-12-11] MEDS: HEPARIN 25000 UNITS/250 ML 250 ML IV (13:07)
[2017-12-11] MEDS: HEPARIN 1000 UNITS/ML 10 ML INJ IV (13:08)
[2017-12-11] MEDS: BUMETANIDE 12 MG in DEXTROSE 5% 72 ML IV (15:49)
[2017-12-11] MEDS ORDERED: VANCOMYCIN IV PER PHARMACY XX (17:00)
[2017-12-11] MEDS ORDERED: morphine LIQ (10 MG/5 ML) CUP PO (18:00)
[2017-12-11] MEDS: morphine LIQ (10 MG/5 ML) CUP PO (18:06)
[2017-12-11 20:04] LABS: CREATINE KINASE 366 IU/L (23-200)
[2017-12-11 20:17] LABS: CK INDEX 1.1; CK-MB 3.97 ng/ml (0.0-2.4)
[2017-12-11 20:20] LABS: TROPONIN-I 0.652 ng/ml (0.000-0.120)
[2017-12-11 20:49] LABS: PARTIAL THROMBOPLASTIN TIME > 180.0 Sec (25.0-35.0)
[2017-12-11] MEDS: EZETIMIBE 10 MG TAB PO (21:00)
[2017-12-11] MEDS: Insulin NOVOLOG SS MILD Algorithm (SS with meals and bedtime) SC (21:00)
[2017-12-11] MEDS: ATORVASTATIN 80 MG TAB PO (21:27)
[2017-12-11] MEDS: VANCOMYCIN 1 GM 250 ML IVPB (21:27)
[2017-12-11] MEDS: INSULIN GLARGINE [LANtus] 3 ML PEN SC (21:56)
[2017-12-11 23:19] LABS: CREATINE KINASE 411 IU/L (23-200)
[2017-12-11 23:29] LABS: CK INDEX 1.3; CK-MB 5.42 ng/ml (0.0-2.4)
[2017-12-11 23:31] LABS: TROPONIN-I 0.565 ng/ml (0.000-0.120)
[2017-12-11 23:40] LABS: PARTIAL THROMBOPLASTIN TIME 168.4 Sec (25.0-35.0)
[2017-12-12] MEDS: ACETAMINOPHEN 325 MG TAB PO (01:36)
[2017-12-12] MEDS: ACCU-CHEK XX (02:00)
[2017-12-12] MEDS: GUAIFENESIN 20 MG/ML 5ML CUP PO ×4 (02:33→23:04)
[2017-12-12] MEDS: EZETIMIBE 10 MG TAB PO ×2 (02:36→23:11)
[2017-12-12] MEDS: CEPASTAT LOZENGE MT ×4 (05:49→23:04)
[2017-12-12 06:45] LABS: ADD MAN DIFF? NO
[2017-12-12 06:51] LABS: BASOPHILS % 0.4 % (0.0-2.0); EOSINOPHILS # 0.4 10^3/ul (0.0-0.5); EOSINOPHILS % 7.4 % (0.0-7.0); HEMATOCRIT 26.1 % (42.0-52.0); HEMOGLOBIN 8.6 g/dl (14.0-18.0); LYMPHOCYTES # 0.8 10^3/ul (0.8-2.9); MEAN CORPUSCULAR HEMOGLOBIN 26.6 pg (29.0-33.0); MEAN CORPUSCULAR VOLUME 80.8 fl (82.0-101.0); MEAN PLATELET VOLUME 11.4 fl (7.4-10.4); MONOCYTE # 0.7 10^3/ul (0.3-0.9); MONOCYTES % 12.3 % (0.0-11.0); NEUTROPHIL # 3.5 10^3/ul (1.6-7.5); NEUTROPHILS % 65.5 % (39.0-77.0); PLATELET COUNT 141 10^3/UL (140-415); RED BLOOD COUNT 3.23 10^6/ul (4.70-6.10)
[2017-12-12 06:51] LABS: WHITE BLOOD COUNT 5.4 10^3/ul (4.8-10.8)
[2017-12-12] MEDS: Insulin NOVOLOG SS MILD Algorithm (SS with meals and bedtime) SC ×4 (07:30→21:00)
[2017-12-12 07:41] LABS: ALANINE AMINOTRANSFERASE 52 IU/L (13-69); ALKALINE PHOSPHATASE 57 IU/L (42-121); ANION GAP 14 (8-16); ASPARTATE AMINO TRANSFERASE 43 IU/L (15-46); BILIRUBIN,INDIRECT 0.5 mg/dl (0-1.1); BILIRUBIN,TOTAL 0.5 mg/dl (0.2-1.3); BLOOD UREA NITROGEN 47 mg/dl (7-20); CALCIUM 8.1 mg/dl (8.4-10.2); CARBON DIOXIDE 26 mmol/L (21-31); CHLORIDE 102 mmol/L (97-110); GLUCOSE 77 mg/dl (70-220); MAGNESIUM 1.7 mg/dl (1.7-2.5); SODIUM 139 mmol/L (135-144); TOTAL PROTEIN 5.3 g/dl (6.1-8.1)
[2017-12-12 08:00] LABS: POTASSIUM 2.9 mmol/L (3.5-5.1)
[2017-12-12] MEDS: POTASSIUM CHLORIDE (SR) 10 MEQ TAB PO ×2 (08:04→23:06)
[2017-12-12] MEDS: NIFEdipine (XL) 60 MG TAB PO ×2 (08:19→23:06)
[2017-12-12] MEDS: METOLAZONE 2.5 MG TAB PO (08:20)
[2017-12-12] MEDS: ASPIRIN (EC) 81 MG TAB PO (08:20)
[2017-12-12] MEDS: ONDANSETRON 4 MG INJ IV (11:30)
[2017-12-12] MEDS: POTASSIUM CHLORIDE 100 ML IVPB ×2 (14:29→17:10)
[2017-12-12] MEDS: LACTOBACILLUS RHAMNOSUS CAP PO ×2 (14:33→23:06)
[2017-12-12 20:09] LABS: POTASSIUM 3.5 mmol/L (3.5-5.1)
[2017-12-12] MEDS: BARIUM SULF 2% 450 ML BTL (BERRY SMOOTHIE) PO (20:47)
[2017-12-12] MEDS: CEFEPIME 2GM/50 ML (PMX) 50 ML IVPB (20:47)
[2017-12-12] MEDS: INSULIN GLARGINE [LANtus] 3 ML PEN SC (21:05)
[2017-12-12] MEDS: ATORVASTATIN 80 MG TAB PO (23:06)
[2017-12-13] MEDS: ACCU-CHEK XX (02:00)
[2017-12-13] MEDS: ALBUTEROL/IPRATROPIUM (NEB) 3 ML AMP HHN ×4 (02:30→20:47)
[2017-12-13 07:43] LABS: ADD MAN DIFF? NO; HAAIG REFLEX REFLEX FILED
[2017-12-13 08:03] LABS: LACTIC ACID 1.1 mmol/L (0.5-2.0)
[2017-12-13 08:06] LABS: ALANINE AMINOTRANSFERASE 59 IU/L (13-69); ALBUMIN 3.2 g/dl (3.3-4.9); ALKALINE PHOSPHATASE 72 IU/L (42-121); ANION GAP 14 (8-16); ASPARTATE AMINO TRANSFERASE 39 IU/L (15-46); BILIRUBIN,INDIRECT 0.4 mg/dl (0-1.1); BILIRUBIN,TOTAL 0.4 mg/dl (0.2-1.3); BLOOD UREA NITROGEN 49 mg/dl (7-20); CALCIUM 8.4 mg/dl (8.4-10.2); CARBON DIOXIDE 23 mmol/L (21-31); CHLORIDE 102 mmol/L (97-110); CREATININE 3.95 mg/dl (0.61-1.24); GLUCOSE 157 mg/dl (70-220); MAGNESIUM 1.8 mg/dl (1.7-2.5); PHOSPHORUS 5.1 mg/dl (2.5-4.9); POTASSIUM 3.3 mmol/L (3.5-5.1); SODIUM 136 mmol/L (135-144); TOTAL PROTEIN 6.1 g/dl (6.1-8.1)
[2017-12-13 08:12] LABS: INR 0.97
[2017-12-13 08:15] LABS: LIPASE 116 U/L (23-300)
[2017-12-13] MEDS: ACETAMINOPHEN 325 MG TAB PO ×2 (08:17→16:23)
[2017-12-13] MEDS: LACTOBACILLUS RHAMNOSUS CAP PO ×2 (08:17→22:21)
[2017-12-13] MEDS: POTASSIUM CHLORIDE (SR) 10 MEQ TAB PO ×2 (08:17→20:49)
[2017-12-13] MEDS: ASPIRIN (EC) 81 MG TAB PO (08:17)
[2017-12-13] MEDS: NIFEdipine (XL) 60 MG TAB PO ×2 (08:17→20:50)
[2017-12-13] MEDS: VANCOMYCIN 1.5 GM in SOD CHLORIDE 0.9% 250 ML IVPB (08:18)
[2017-12-13] MEDS: Insulin NOVOLOG SS MILD Algorithm (SS with meals and bedtime) SC ×4 (08:19→21:08)
[2017-12-13 08:20] LABS: TROPONIN-I 0.272 ng/ml (0.000-0.120)
[2017-12-13 08:42] LABS: BASOPHILS % 0.2 % (0.0-2.0); EOSINOPHILS # 0.4 10^3/ul (0.0-0.5); EOSINOPHILS % 5.9 % (0.0-7.0); HEMATOCRIT 24.9 % (42.0-52.0); HEMOGLOBIN 8.2 g/dl (14.0-18.0); LYMPHOCYTES # 0.7 10^3/ul (0.8-2.9); LYMPHOCYTES % 10.8 % (15.0-51.0); MEAN CORPUSCULAR HEMOGLOBIN 26.9 pg (29.0-33.0); MEAN CORPUSCULAR HGB CONC 32.9 g/dl (32.0-37.0); MEAN CORPUSCULAR VOLUME 81.6 fl (82.0-101.0); MONOCYTE # 0.7 10^3/ul (0.3-0.9); MONOCYTES % 11.1 % (0.0-11.0); NEUTROPHIL # 4.5 10^3/ul (1.6-7.5); NEUTROPHILS % 71.5 % (39.0-77.0); PLATELET COUNT 150 10^3/UL (140-415); RED BLOOD COUNT 3.05 10^6/ul (4.70-6.10); RED CELL DISTRIBUTION WIDTH 13.9 % (11.5-14.5)
[2017-12-13 08:42] LABS: WHITE BLOOD COUNT 6.3 10^3/ul (4.8-10.8)
[2017-12-13 08:47] LABS: HEPATITIS B SURFACE ANTIGEN NEGATIVE (NEGATIVE)
[2017-12-13 09:05] LABS: HEPATITIS B CORE ANTIBODY NEGATIVE (NEGATIVE); HEPATITIS C VIRAL ANTIBODY NEGATIVE (NEGATIVE)
[2017-12-13] MEDS: CEPASTAT LOZENGE MT (12:04)
[2017-12-13] MEDS: GUAIFENESIN 20 MG/ML 5ML CUP PO (12:04)
[2017-12-13] MEDS: SEVELAMER CARBONATE 800 MG TABLET PO ×2 (12:53→17:46)
[2017-12-13] MEDS: POTASSIUM CHLORIDE 100 ML IVPB (12:55)
[2017-12-13] MEDS: CEFEPIME 2GM/50 ML (PMX) 50 ML IVPB (18:32)
[2017-12-13] MEDS: EZETIMIBE 10 MG TAB PO (20:49)
[2017-12-13] MEDS: ATORVASTATIN 80 MG TAB PO (20:49)
[2017-12-13] MEDS: INSULIN GLARGINE [LANtus] 3 ML PEN SC (21:08)
[2017-12-13] MEDS: ONDANSETRON 4 MG INJ IV (21:11)
[2017-12-13] MEDS: DOXYCYCLINE 100 MG in SOD CHLORIDE 0.9% 250 ML IVPB (21:16)
[2017-12-13] MEDS: ZOLPIDEM 5 MG TAB PO (22:22)
[2017-12-13] MEDS: ACETAMINOPHEN 500 MG TAB PO (22:22)
[2017-12-14] MEDS: ACCU-CHEK XX (02:36)
[2017-12-14 05:11] LABS: ADD MAN DIFF? NO
[2017-12-14] MEDS: ACETAMINOPHEN 500 MG TAB PO ×2 (05:18→20:34)
[2017-12-14 05:24] LABS: WHITE BLOOD COUNT 5.8 10^3/ul (4.8-10.8)
[2017-12-14 05:24] LABS: BASOPHILS % 0.2 % (0.0-2.0); EOSINOPHILS # 0.2 10^3/ul (0.0-0.5); EOSINOPHILS % 3.4 % (0.0-7.0); HEMATOCRIT 22.2 % (42.0-52.0); HEMOGLOBIN 7.3 g/dl (14.0-18.0); LYMPHOCYTES % 17.4 % (15.0-51.0); MEAN CORPUSCULAR HEMOGLOBIN 26.5 pg (29.0-33.0); MEAN CORPUSCULAR HGB CONC 32.9 g/dl (32.0-37.0); MEAN CORPUSCULAR VOLUME 80.7 fl (82.0-101.0); MEAN PLATELET VOLUME 11.9 fl (7.4-10.4); MONOCYTE # 0.8 10^3/ul (0.3-0.9); MONOCYTES % 13.8 % (0.0-11.0); NEUTROPHIL # 3.8 10^3/ul (1.6-7.5); NEUTROPHILS % 64.9 % (39.0-77.0); PLATELET COUNT 120 10^3/UL (140-415); POSITIVE DIFF @See below; RED BLOOD COUNT 2.75 10^6/ul (4.70-6.10); RED CELL DISTRIBUTION WIDTH 14.1 % (11.5-14.5)
[2017-12-14 05:37] LABS: INR 1.03; PROTIME 13.6 Sec (11.9-14.9); PT RATIO 1.1
[2017-12-14 05:38] LABS: PARTIAL THROMBOPLASTIN TIME 67.1 Sec (25.0-35.0)
[2017-12-14 05:46] LABS: ANION GAP 15 (8-16); BLOOD UREA NITROGEN 57 mg/dl (7-20); CARBON DIOXIDE 23 mmol/L (21-31); CHLORIDE 102 mmol/L (97-110); GLUCOSE 116 mg/dl (70-220); POTASSIUM 3.8 mmol/L (3.5-5.1); SODIUM 136 mmol/L (135-144)
[2017-12-14 06:19] LABS: HIV 1&2 ANTIBODY NEGATIVE (NEGATIVE)
[2017-12-14 07:35] LABS: LACTATE DEHYDROGENASE 772 IU/L (313-618)
[2017-12-14 07:36] LABS: PHOSPHORUS 6.1 mg/dl (2.5-4.9)
[2017-12-14] MEDS ORDERED: morphine 2 MG INJ IV (07:46)
[2017-12-14] MEDS: Insulin NOVOLOG SS MILD Algorithm (SS with meals and bedtime) SC ×4 (08:25→20:35)
[2017-12-14] MEDS: SEVELAMER CARBONATE 800 MG TABLET PO ×3 (08:51→18:02)
[2017-12-14] MEDS: NIFEdipine (XL) 60 MG TAB PO ×2 (08:52→20:34)
[2017-12-14] MEDS: POTASSIUM CHLORIDE (SR) 10 MEQ TAB PO ×2 (08:52→20:34)
[2017-12-14] MEDS: LACTOBACILLUS RHAMNOSUS CAP PO ×2 (08:52→20:32)
[2017-12-14] MEDS: morphine 2 MG INJ IV ×2 (08:53→20:35)
[2017-12-14] MEDS: ASPIRIN (EC) 81 MG TAB PO (08:55)
[2017-12-14] MEDS: ACETAMINOPHEN 325 MG TAB PO (08:55)
[2017-12-14] MEDS: DOXYCYCLINE 100 MG in SOD CHLORIDE 0.9% 250 ML IVPB ×2 (09:01→20:34)
[2017-12-14 15:32] LABS: HEMATOCRIT 21.7 % (42.0-52.0); HEMOGLOBIN 7.1 g/dl (14.0-18.0)
[2017-12-14 15:51] LABS: INR 1.08; PROTIME 14.1 Sec (11.9-14.9); PT RATIO 1.1
[2017-12-14] MEDS: CEFEPIME 2GM/50 ML (PMX) 50 ML IVPB (18:02)
[2017-12-14] MEDS: ATORVASTATIN 80 MG TAB PO (20:33)
[2017-12-14] MEDS: EZETIMIBE 10 MG TAB PO (20:34)
[2017-12-14] MEDS: INSULIN GLARGINE [LANtus] 3 ML PEN SC (21:19)
[2017-12-14] MEDS: ZOLPIDEM 5 MG TAB PO (21:59)
[2017-12-15] MEDS: ACCU-CHEK XX (02:00)
[2017-12-15] MEDS: Insulin NOVOLOG SS MILD Algorithm (SS with meals and bedtime) SC ×4 (07:25→21:00)
[2017-12-15 08:28] LABS: ADD MAN DIFF? NO
[2017-12-15 08:31] LABS: WHITE BLOOD COUNT 8.1 10^3/ul (4.8-10.8)
[2017-12-15 08:31] LABS: BASOPHILS % 0.1 % (0.0-2.0); EOSINOPHILS # 0.5 10^3/ul (0.0-0.5); EOSINOPHILS % 5.6 % (0.0-7.0); HEMATOCRIT 21.5 % (42.0-52.0); LYMPHOCYTES # 1.2 10^3/ul (0.8-2.9); LYMPHOCYTES % 15.4 % (15.0-51.0); MEAN CORPUSCULAR HEMOGLOBIN 26.2 pg (29.0-33.0); MEAN CORPUSCULAR HGB CONC 32.6 g/dl (32.0-37.0); MEAN CORPUSCULAR VOLUME 80.5 fl (82.0-101.0); MEAN PLATELET VOLUME 11.4 fl (7.4-10.4); MONOCYTE # 1.1 10^3/ul (0.3-0.9); MONOCYTES % 13.3 % (0.0-11.0); NEUTROPHIL # 5.2 10^3/ul (1.6-7.5); PLATELET COUNT 148 10^3/UL (140-415); RED BLOOD COUNT 2.67 10^6/ul (4.70-6.10); RED CELL DISTRIBUTION WIDTH 13.9 % (11.5-14.5)
[2017-12-15] MEDS: morphine 2 MG INJ IV (08:48)
[2017-12-15] MEDS: SEVELAMER CARBONATE 800 MG TABLET PO ×3 (08:50→18:00)
[2017-12-15] MEDS: ACETAMINOPHEN 325 MG TAB PO (08:50)
[2017-12-15] MEDS: LACTOBACILLUS RHAMNOSUS CAP PO ×2 (08:50→21:11)
[2017-12-15] MEDS: POTASSIUM CHLORIDE (SR) 10 MEQ TAB PO ×2 (08:51→21:11)
[2017-12-15] MEDS: NIFEdipine (XL) 60 MG TAB PO ×2 (08:51→21:11)
[2017-12-15] MEDS: ASPIRIN (EC) 81 MG TAB PO (08:51)
[2017-12-15 08:55] LABS: ALANINE AMINOTRANSFERASE 42 IU/L (13-69); ALBUMIN 3.1 g/dl (3.3-4.9); ALBUMIN/GLOBULIN RATIO 1.14; ALKALINE PHOSPHATASE 61 IU/L (42-121); ANION GAP 16 (8-16); ASPARTATE AMINO TRANSFERASE 33 IU/L (15-46); BILIRUBIN,INDIRECT 0.2 mg/dl (0-1.1); BILIRUBIN,TOTAL 0.2 mg/dl (0.2-1.3); BLOOD UREA NITROGEN 64 mg/dl (7-20); CALCIUM 8.4 mg/dl (8.4-10.2); CARBON DIOXIDE 24 mmol/L (21-31); CHLORIDE 99 mmol/L (97-110); CREATININE 4.53 mg/dl (0.61-1.24); GLUCOSE 88 mg/dl (70-220); PHOSPHORUS 5.4 mg/dl (2.5-4.9); POTASSIUM 3.8 mmol/L (3.5-5.1); SODIUM 135 mmol/L (135-144); TOTAL PROTEIN 5.8 g/dl (6.1-8.1)
[2017-12-15 09:08] LABS: TROPONIN-I 0.151 ng/ml (0.000-0.120)
[2017-12-15] MEDS: METOLAZONE 2.5 MG TAB PO (11:06)
[2017-12-15] MEDS: DOXYCYCLINE 100 MG in SOD CHLORIDE 0.9% 250 ML IVPB (11:06)
[2017-12-15] MEDS ORDERED: LIDOCAINE 1% (MDV) 10 ML INJ (16:58)
[2017-12-15 17:44] LABS: FLD MN% 95.1 %; FLD PMN% 4.9 %; FLD RBC 2000 /uL; FLD WBC 225 /cmm
[2017-12-15 17:54] LABS: FLUID TOTAL PROTEIN < 2.0 g/dl
[2017-12-15 17:56] LABS: FLUID GLUCOSE 87 mg/dl; FLUID LD 193 U/L; FLUID TYPE THORACENTESIS FLUID
[2017-12-15 17:57] LABS: FLUID TOTAL PROTEIN < 2.0 g/dl
[2017-12-15] MEDS: LEVOFLOXACIN 750 MG TABLET PO (18:03)
[2017-12-15] MEDS ORDERED: morphine LIQ (10 MG/5 ML) CUP PO ×2 (18:30)
[2017-12-15 18:49] LABS: FLD CLARITY HAZY; FLD COLOR YELLOW
[2017-12-15 18:49] LABS: FLD TYPE THORACENTHESIS
[2017-12-15] MEDS: EZETIMIBE 10 MG TAB PO (21:11)
[2017-12-15] MEDS: ATORVASTATIN 80 MG TAB PO (21:11)
[2017-12-15] MEDS: INSULIN GLARGINE [LANtus] 3 ML PEN SC (21:15)
[2017-12-16] MEDS: ACCU-CHEK XX (01:39)
[2017-12-16] MEDS: LEVOFLOXACIN 750 MG TABLET PO (05:37)
[2017-12-16] MEDS: Insulin NOVOLOG SS MILD Algorithm (SS with meals and bedtime) SC ×4 (07:25→21:00)
[2017-12-16] MEDS: SEVELAMER CARBONATE 800 MG TABLET PO ×3 (08:07→17:51)
[2017-12-16] MEDS: POTASSIUM CHLORIDE (SR) 10 MEQ TAB PO ×2 (08:22→21:00)
[2017-12-16] MEDS: HYDROCODONE/APAP (5/325) TAB PO (08:22)
[2017-12-16] MEDS: NIFEdipine (XL) 60 MG TAB PO ×2 (08:23→21:00)
[2017-12-16] MEDS: ASPIRIN (EC) 81 MG TAB PO (08:23)
[2017-12-16 09:14] LABS: ADD MAN DIFF? NO
[2017-12-16 09:41] LABS: WHITE BLOOD COUNT 6.4 10^3/ul (4.8-10.8)
[2017-12-16 09:41] LABS: ABNORMAL IP MESSAGE 1; BASOPHILS % 0.2 % (0.0-2.0); EOSINOPHILS # 0.3 10^3/ul (0.0-0.5); EOSINOPHILS % 5.3 % (0.0-7.0); HEMATOCRIT 19.8 % (42.0-52.0); LYMPHOCYTES # 0.9 10^3/ul (0.8-2.9); LYMPHOCYTES % 14.7 % (15.0-51.0); MEAN CORPUSCULAR HEMOGLOBIN 26.1 pg (29.0-33.0); MEAN CORPUSCULAR HGB CONC 32.3 g/dl (32.0-37.0); MEAN CORPUSCULAR VOLUME 80.8 fl (82.0-101.0); MONOCYTE # 0.7 10^3/ul (0.3-0.9); MONOCYTES % 10.8 % (0.0-11.0); NEUTROPHIL # 4.4 10^3/ul (1.6-7.5); NEUTROPHILS % 68.4 % (39.0-77.0); PLATELET COUNT 151 10^3/UL (140-415); RED BLOOD COUNT 2.45 10^6/ul (4.70-6.10); RED CELL DISTRIBUTION WIDTH 13.9 % (11.5-14.5)
[2017-12-16 09:42] LABS: IRON 28 ug/dl (35-150)
[2017-12-16 09:43] LABS: RETICULOCYTE RBC 2.45
[2017-12-16 09:43] LABS: RETICULOCYTE COUNT # 0.034 X10^6 (0.020-0.110); RETICULOCYTE COUNT % 1.4 % (0.5-1.5)
[2017-12-16 09:50] LABS: HEMOGLOBIN 6.4 g/dl (14.0-18.0)
[2017-12-16 09:51] LABS: PATH REVIEW? YES
[2017-12-16 09:53] LABS: % IRON SATURATION 14 % SAT (22-52); TOTAL IRON BINDING CAPACITY 204 ug/dl (241-421)
[2017-12-16 10:00] LABS: ANION GAP 15 (8-16); BLOOD UREA NITROGEN 70 mg/dl (7-20); CALCIUM 8.1 mg/dl (8.4-10.2); CARBON DIOXIDE 21 mmol/L (21-31); CHLORIDE 102 mmol/L (97-110); CREATININE 4.46 mg/dl (0.61-1.24); GLUCOSE 82 mg/dl (70-220); MAGNESIUM 2.2 mg/dl (1.7-2.5); PHOSPHORUS 4.9 mg/dl (2.5-4.9); POTASSIUM 3.8 mmol/L (3.5-5.1); SODIUM 134 mmol/L (135-144)
[2017-12-16 10:26] LABS: ANISOCYTOSIS 1+ (0-0); BAND NEUTROPHILS #M 0.3 10^3/ul (0.0-0.6); BAND NEUTROPHILS % (M) 6 % (0-4); EOSINOPHILS % (M) 9 % (0-7); GIANT THROMBO% (M) 1 % (0-0); LYMPHOCYTES #M 0.7 10^3/ul (0.8-2.9); LYMPHOCYTES % (M) 11 % (15-51); MICROCYTOSIS 1+ (0-0); MONOCYTE #M 0.1 10^3/ul (0.3-0.9); MONOCYTES % (M) 2 % (0-11); PLATELET ESTIMATE NORMAL; POIKILOCYTOSIS 1+ (0-0); REACTIVE LYMPHOCYTES #M 0.1 10^3/ul (0.0-0.0); REACTIVE LYMPHOCYTES% (M) 2 % (0-0); SEG NEUT #M 4.5 10^3/ul (1.6-7.5); SEGMENTED NEUTROPHILS (M) % 70 % (39-77); SMUDGE%M 15 % (0-0)
[2017-12-16 10:51] LABS: FOLATE 13.4 ng/ml (2.8-20.0)
[2017-12-16] MEDS: LACTOBACILLUS RHAMNOSUS CAP PO ×2 (12:04→21:03)
[2017-12-16 13:49] LABS: IMMEDIATE SPIN CROSSMATCH 1 1
[2017-12-16] MEDS: SOD CHLORIDE 0.9% 250 ML IV* (14:02)
[2017-12-16] MEDS: BISACODYL (EC) 5 MG TAB PO (17:51)
[2017-12-16] MEDS: EZETIMIBE 10 MG TAB PO (21:02)
[2017-12-16] MEDS: ATORVASTATIN 80 MG TAB PO (21:02)
[2017-12-16] MEDS: INSULIN GLARGINE [LANtus] 3 ML PEN SC (21:08)
[2017-12-17] MEDS: ACCU-CHEK XX (02:00)
[2017-12-17] MEDS: MAGNESIUM HYDROXIDE 30ML CUP PO (03:02)
[2017-12-17] MEDS: LEVOFLOXACIN 750 MG TABLET PO (05:46)
[2017-12-17] MEDS: Insulin NOVOLOG SS MILD Algorithm (SS with meals and bedtime) SC ×2 (07:25→12:09)
[2017-12-17] MEDS: SEVELAMER CARBONATE 800 MG TABLET PO ×2 (07:45→12:01)
[2017-12-17] MEDS: ASPIRIN (EC) 81 MG TAB PO (07:45)
[2017-12-17] MEDS: LACTOBACILLUS RHAMNOSUS CAP PO (08:13)
[2017-12-17] MEDS: POTASSIUM CHLORIDE (SR) 10 MEQ TAB PO (08:14)
[2017-12-17] MEDS: NIFEdipine (XL) 60 MG TAB PO (08:14)
[2017-12-17 11:49] LABS: ADD MAN DIFF? NO
[2017-12-17 11:51] LABS: BASOPHILS % 0.3 % (0.0-2.0); EOSINOPHILS # 0.5 10^3/ul (0.0-0.5); HEMATOCRIT 23.6 % (42.0-52.0); HEMOGLOBIN 7.8 g/dl (14.0-18.0); LYMPHOCYTES # 1.2 10^3/ul (0.8-2.9); LYMPHOCYTES % 19.4 % (15.0-51.0); MEAN CORPUSCULAR HEMOGLOBIN 26.7 pg (29.0-33.0); MEAN CORPUSCULAR HGB CONC 33.1 g/dl (32.0-37.0); MEAN CORPUSCULAR VOLUME 80.8 fl (82.0-101.0); MEAN PLATELET VOLUME 10.8 fl (7.4-10.4); MONOCYTE # 0.5 10^3/ul (0.3-0.9); MONOCYTES % 8.8 % (0.0-11.0); NEUTROPHIL # 3.8 10^3/ul (1.6-7.5); NEUTROPHILS % 62.8 % (39.0-77.0); PLATELET COUNT 219 10^3/UL (140-415); RED BLOOD COUNT 2.92 10^6/ul (4.70-6.10); RED CELL DISTRIBUTION WIDTH 13.7 % (11.5-14.5)
[2017-12-17 14:59] LABS: ANION GAP 15 (8-16); BLOOD UREA NITROGEN 69 mg/dl (7-20); CALCIUM 8.6 mg/dl (8.4-10.2); CARBON DIOXIDE 24 mmol/L (21-31); CHLORIDE 101 mmol/L (97-110); CREATININE 4.47 mg/dl (0.61-1.24); GLUCOSE 140 mg/dl (70-220); POTASSIUM 3.4 mmol/L (3.5-5.1); SODIUM 137 mmol/L (135-144)
[2017-12-17 15:01] LABS: NIL 0.03 IU/mL; QUANTIFERON(R)-TB GOLD NEGATIVE (NEGATIVE); TB-NIL 0.01 IU/mL
== END 2017-12-17 17:00 | disposition home or self-care (01) | DRG 871 ==
LOC: TEL 12-13 17:11 → E/R 23:15 → TEL 12-13 17:26 → MS4 12-11 02:25
PROC: 0W993ZX Drainage of Right Pleural Cavity, Percutaneous Approach, Diagnostic (ICD-10-PCS; principal; 2017-12-15)
DX: A41.9 Sepsis, unspecified organism (principal); I50.33 Acute on chronic diastolic (congestive) heart failure; I21.A1 Myocardial infarction type 2; J18.9 Pneumonia, unspecified organism; N17.9 Acute kidney failure, unspecified; J90 Pleural effusion, not elsewhere classified; I16.0 Hypertensive urgency; I48.0 Paroxysmal atrial fibrillation; I12.9 Hypertensive chronic kidney disease with stage 1 through stage 4 chronic kidney disease, or unspecified chronic kidney disease; N18.3 Chronic kidney disease, stage 3 (moderate); E78.5 Hyperlipidemia, unspecified; E11.21 Type 2 diabetes mellitus with diabetic nephropathy; D63.1 Anemia in chronic kidney disease; E83.39 Other disorders of phosphorus metabolism; Z79.01 Long term (current) use of anticoagulants
CPT/HCPCS: 32555; 36430; 71045; 74018; 74176; 80048; 80053; 81001; 82042; 82550; 82553; 82607; 82728; 82746; 82945; 82962; 83036; 83540; 83605; 83615; 83690; 83735; 83880; 84100; 84132; 84155; 84157; 84443; 84484; 85014; 85018; 85025; 85045; 85610; 85730; 86480; 86635; 86703; 86704; 86709; 86803; 86850; 86900; 86901; 86920; 87040; 87070; 87086; 87102; 87116; 87340; 88104; 88305; 89051; 93005; 94640; 94664; 96374; 96375; 99291-25

== ENCOUNTER 2018-01-26 19:57 | Observation (INO) | payer OTHER ==
[2018-01-26 23:39] LABS: ADD MAN DIFF? NO
[2018-01-26 23:58] LABS: BASOPHILS % 0.3 % (0.0-2.0); EOSINOPHILS # 0.4 10^3/ul (0.0-0.5); EOSINOPHILS % 7.1 % (0.0-7.0); HEMATOCRIT 26.8 % (42.0-52.0); HEMOGLOBIN 8.6 g/dl (14.0-18.0); LYMPHOCYTES # 1.2 10^3/ul (0.8-2.9); LYMPHOCYTES % 20.2 % (15.0-51.0); MEAN CORPUSCULAR HEMOGLOBIN 27.1 pg (29.0-33.0); MEAN CORPUSCULAR HGB CONC 32.1 g/dl (32.0-37.0); MEAN CORPUSCULAR VOLUME 84.5 fl (82.0-101.0); MEAN PLATELET VOLUME 11.5 fl (7.4-10.4); MONOCYTE # 0.4 10^3/ul (0.3-0.9); MONOCYTES % 7.5 % (0.0-11.0); NEUTROPHIL # 3.7 10^3/ul (1.6-7.5); NEUTROPHILS % 64.6 % (39.0-77.0); PLATELET COUNT 170 10^3/UL (140-415); RED BLOOD COUNT 3.17 10^6/ul (4.70-6.10); RED CELL DISTRIBUTION WIDTH 14.4 % (11.5-14.5)
[2018-01-26 23:58] LABS: WHITE BLOOD COUNT 5.8 10^3/ul (4.8-10.8)
[2018-01-27 00:15] LABS: ALANINE AMINOTRANSFERASE 52 IU/L (13-69); ALBUMIN 3.1 g/dl (3.3-4.9); ALBUMIN/GLOBULIN RATIO 1.03; ALKALINE PHOSPHATASE 77 IU/L (42-121); ANION GAP 13 (8-16); ASPARTATE AMINO TRANSFERASE 30 IU/L (15-46); BILIRUBIN,INDIRECT 0.5 mg/dl (0-1.1); BILIRUBIN,TOTAL 0.5 mg/dl (0.2-1.3); BLOOD UREA NITROGEN 45 mg/dl (7-20); CALCIUM 8.5 mg/dl (8.4-10.2); CARBON DIOXIDE 21 mmol/L (21-31); CHLORIDE 111 mmol/L (97-110); CREATININE 2.52 mg/dl (0.61-1.24); GLUCOSE 109 mg/dl (70-220); POTASSIUM 4.5 mmol/L (3.5-5.1); SODIUM 140 mmol/L (135-144); TOTAL PROTEIN 6.1 g/dl (6.1-8.1)
[2018-01-27 00:16] LABS: LACTIC ACID 0.8 mmol/L (0.5-2.0)
[2018-01-27 00:19] LABS: PROTIME 19.4 Sec (11.9-14.9); PT RATIO 1.5
[2018-01-27 00:24] LABS: PARTIAL THROMBOPLASTIN TIME 81.2 Sec (25.0-35.0)
[2018-01-27 00:27] LABS: B-TYPE NATRIURETIC PEPTIDE 6880 PG/ML (0-125)
[2018-01-27] MEDS ORDERED: BUMETANIDE 3 MG in DEXTROSE 5% 18 ML IV (02:30)
[2018-01-27] MEDS ORDERED: DOCUSATE SODIUM 100 MG CAP PO (03:00)
[2018-01-27] MEDS ORDERED: ONDANSETRON 4 MG INJ IV (03:00)
[2018-01-27] MEDS ORDERED: BISACODYL (EC) 5 MG TAB PO (03:00)
[2018-01-27] MEDS ORDERED: NACL 0.9% 3 ML SYG IV (03:00)
[2018-01-27] MEDS ORDERED: GLUCOSE GEL 15 GRAM TUBE PO ×2 (06:00)
[2018-01-27] MEDS ORDERED: GLUCOSE GEL 15 GRAM TUBE BUCCAL (06:00)
[2018-01-27] MEDS ORDERED: GLUCAGON 1 MG INJ IM (06:00)
[2018-01-27] MEDS ORDERED: DEXTROSE 50% 50 ML SYRINGE IV ×2 (06:00)
[2018-01-27 06:20] LABS: ADD MAN DIFF? NO
[2018-01-27 06:21] LABS: BASOPHILS % 0.2 % (0.0-2.0); EOSINOPHILS # 0.6 10^3/ul (0.0-0.5); EOSINOPHILS % 9.3 % (0.0-7.0); HEMATOCRIT 25.1 % (42.0-52.0); HEMOGLOBIN 7.9 g/dl (14.0-18.0); LYMPHOCYTES # 0.9 10^3/ul (0.8-2.9); LYMPHOCYTES % 14.1 % (15.0-51.0); MEAN CORPUSCULAR HEMOGLOBIN 26.5 pg (29.0-33.0); MEAN CORPUSCULAR HGB CONC 31.5 g/dl (32.0-37.0); MEAN CORPUSCULAR VOLUME 84.2 fl (82.0-101.0); MEAN PLATELET VOLUME 11.4 fl (7.4-10.4); MONOCYTE # 0.6 10^3/ul (0.3-0.9); MONOCYTES % 9.9 % (0.0-11.0); NEUTROPHIL # 4.3 10^3/ul (1.6-7.5); PLATELET COUNT 162 10^3/UL (140-415); RED BLOOD COUNT 2.98 10^6/ul (4.70-6.10); RED CELL DISTRIBUTION WIDTH 14.4 % (11.5-14.5)
[2018-01-27 06:21] LABS: WHITE BLOOD COUNT 6.4 10^3/ul (4.8-10.8)
[2018-01-27 06:41] LABS: ALANINE AMINOTRANSFERASE 52 IU/L (13-69); ALBUMIN 2.9 g/dl (3.3-4.9); ALBUMIN/GLOBULIN RATIO 1.03; ALKALINE PHOSPHATASE 81 IU/L (42-121); ANION GAP 12 (8-16); ASPARTATE AMINO TRANSFERASE 31 IU/L (15-46); BILIRUBIN,INDIRECT 0.4 mg/dl (0-1.1); BILIRUBIN,TOTAL 0.4 mg/dl (0.2-1.3); BLOOD UREA NITROGEN 45 mg/dl (7-20); CALCIUM 8.4 mg/dl (8.4-10.2); CARBON DIOXIDE 19 mmol/L (21-31); CHLORIDE 113 mmol/L (97-110); CREATININE 2.49 mg/dl (0.61-1.24); GLUCOSE 135 mg/dl (70-220); POTASSIUM 4.2 mmol/L (3.5-5.1); SODIUM 140 mmol/L (135-144); TOTAL PROTEIN 5.7 g/dl (6.1-8.1)
[2018-01-27] MEDS: METOLAZONE 2.5 MG TAB PO (06:42)
[2018-01-27] MEDS: BUMETANIDE 1 MG TAB PO ×2 (06:55→17:07)
[2018-01-27] MEDS: ACETAMINOPHEN 325 MG TAB PO (06:55)
[2018-01-27 07:09] LABS: LACTIC ACID 0.5 mmol/L (0.5-2.0)
[2018-01-27] MEDS: INSULIN ASPART [NOVOLOG] 3 ML PEN SC ×7 (08:00→20:27)
[2018-01-27] MEDS ORDERED: IRBESARTAN 75 MG PO (09:00)
[2018-01-27] MEDS: POTASSIUM CHLORIDE (SR) 10 MEQ TAB PO ×2 (09:19→20:26)
[2018-01-27] MEDS: SPIRONOLACTONE 25 MG TAB PO (09:20)
[2018-01-27] MEDS: CHOLECALCIFEROL 1,000 UNIT TAB PO (09:20)
[2018-01-27] MEDS: ISOSORBIDE MONONITRATE(SR)30 MG TAB PO (09:20)
[2018-01-27] MEDS ORDERED: hydrALAzine 20 MG INJ IV (09:30)
[2018-01-27] MEDS: NIFEdipine (XL) 60 MG TAB PO ×2 (10:08→21:40)
[2018-01-27 10:15] LABS: LACTIC ACID 0.6 mmol/L (0.5-2.0)
[2018-01-27] MEDS: LOSARTAN 25 MG TAB PO (10:57)
[2018-01-27] MEDS ORDERED: APIXABAN 5 MG TABLET PO (13:00)
[2018-01-27] MEDS: APIXABAN 5 MG TABLET PO ×2 (14:30→20:25)
[2018-01-27] MEDS: EZETIMIBE 10 MG TAB PO (20:26)
[2018-01-27] MEDS: ATORVASTATIN 80 MG TAB PO (20:26)
[2018-01-27] MEDS: INSULIN GLARGINE [LANTus] (100 UNITS/ML) SYG SC (20:32)
[2018-01-28] MEDS: hydrALAzine 20 MG INJ IV (01:02)
[2018-01-28] MEDS: ACCU-CHEK XX (02:14)
[2018-01-28] MEDS: HYDROCODONE/APAP (5/325) TAB PO (02:26)
[2018-01-28] MEDS: morphine 2 MG INJ IV (03:43)
[2018-01-28] MEDS: BUMETANIDE 1 MG TAB PO (05:34)
[2018-01-28 06:39] LABS: IRON 28 ug/dl (35-150)
[2018-01-28 06:49] LABS: % IRON SATURATION 11 % SAT (22-52); TOTAL IRON BINDING CAPACITY 251 ug/dl (241-421)
[2018-01-28] MEDS: INSULIN ASPART [NOVOLOG] 3 ML PEN SC ×2 (07:30→07:35)
[2018-01-28] MEDS: SPIRONOLACTONE 25 MG TAB PO (08:23)
[2018-01-28] MEDS: CHOLECALCIFEROL 1,000 UNIT TAB PO (08:23)
[2018-01-28] MEDS: POTASSIUM CHLORIDE (SR) 10 MEQ TAB PO (08:23)
[2018-01-28] MEDS: NIFEdipine (XL) 60 MG TAB PO (08:23)
[2018-01-28] MEDS: ISOSORBIDE MONONITRATE(SR)30 MG TAB PO (08:24)
[2018-01-28] MEDS: APIXABAN 5 MG TABLET PO (08:24)
[2018-01-28] MEDS: LOSARTAN 25 MG TAB PO (08:24)
== END 2018-01-28 10:50 | disposition home or self-care (01) ==
LOC: E/R 19:57 → ICU 01-27 02:14
DX: N17.9 Acute kidney failure, unspecified (principal); A04.72 Enterocolitis due to Clostridium difficile, not specified as recurrent; I12.9 Hypertensive chronic kidney disease with stage 1 through stage 4 chronic kidney disease, or unspecified chronic kidney disease; N18.3 Chronic kidney disease, stage 3 (moderate); E11.21 Type 2 diabetes mellitus with diabetic nephropathy; D63.1 Anemia in chronic kidney disease
CPT/HCPCS: 71045; 80053; 82728; 82962; 83540; 83605; 83880; 84484; 85025; 85610; 85730; 86674; 87040; 87045; 87075; 87177; 87205; 93005; 99285-25; G0378

== ENCOUNTER 2018-02-16 11:35 | Inpatient (IN) | payer OTHER ==
[2018-02-16 13:02] LABS: ADD MAN DIFF? NO
[2018-02-16 13:07] LABS: BASOPHILS % 0.4 % (0.0-2.0); EOSINOPHILS # 0.5 10^3/ul (0.0-0.5); EOSINOPHILS % 7.3 % (0.0-7.0); HEMATOCRIT 24.9 % (42.0-52.0); HEMOGLOBIN 7.8 g/dl (14.0-18.0); LYMPHOCYTES # 0.8 10^3/ul (0.8-2.9); LYMPHOCYTES % 11.8 % (15.0-51.0); MEAN CORPUSCULAR HEMOGLOBIN 26.5 pg (29.0-33.0); MEAN CORPUSCULAR HGB CONC 31.3 g/dl (32.0-37.0); MEAN CORPUSCULAR VOLUME 84.7 fl (82.0-101.0); MEAN PLATELET VOLUME 10.6 fl (7.4-10.4); MONOCYTE # 0.6 10^3/ul (0.3-0.9); MONOCYTES % 9.1 % (0.0-11.0); NEUTROPHILS % 71.1 % (39.0-77.0); PLATELET COUNT 214 10^3/UL (140-415); RED BLOOD COUNT 2.94 10^6/ul (4.70-6.10); RED CELL DISTRIBUTION WIDTH 14.8 % (11.5-14.5)
[2018-02-16 13:28] LABS: INR 0.98; PROTIME 13.1 Sec (11.9-14.9)
[2018-02-16 13:48] LABS: ALANINE AMINOTRANSFERASE 59 IU/L (13-69); ALBUMIN 3.3 g/dl (3.3-4.9); ALBUMIN/GLOBULIN RATIO 1.37; ALKALINE PHOSPHATASE 103 IU/L (42-121); ANION GAP 13 (8-16); ASPARTATE AMINO TRANSFERASE 29 IU/L (15-46); BILIRUBIN,INDIRECT 0.7 mg/dl (0-1.1); BILIRUBIN,TOTAL 0.7 mg/dl (0.2-1.3); BLOOD UREA NITROGEN 50 mg/dl (7-20); CALCIUM 8.6 mg/dl (8.4-10.2); CARBON DIOXIDE 26 mmol/L (21-31); CHLORIDE 111 mmol/L (97-110); CREATININE 2.66 mg/dl (0.61-1.24); GLUCOSE 128 mg/dl (70-220); POTASSIUM 4.9 mmol/L (3.5-5.1); SODIUM 145 mmol/L (135-144); TOTAL PROTEIN 5.7 g/dl (6.1-8.1)
[2018-02-16 13:59] LABS: B-TYPE NATRIURETIC PEPTIDE 5430 PG/ML (0-125); TROPONIN-I < 0.012 ng/ml (0.000-0.120)
[2018-02-16 14:22] LABS: CREATINE KINASE 384 IU/L (23-200)
[2018-02-16 14:36] LABS: CK INDEX 1.8; CK-MB 6.89 ng/ml (0.0-2.4); TROPONIN-I < 0.012 ng/ml (0.000-0.120)
[2018-02-16] MEDS: CEFTRIAXONE 1 GM/50 ML (PMX) 50 ML IVPB (15:18)
[2018-02-16] MEDS: FUROSEMIDE 40 MG INJ IV (15:18)
[2018-02-16] MEDS ORDERED: ACETAMINOPHEN 650 MG SUPP PR (15:30)
[2018-02-16] MEDS ORDERED: NACL 0.9% 3 ML SYG IV (15:30)
[2018-02-16] MEDS ORDERED: ACETAMINOPHEN 325 MG TAB PO ×2 (15:30)
[2018-02-16] MEDS ORDERED: ONDANSETRON 4 MG INJ IV (15:30)
[2018-02-16] MEDS ORDERED: HYDROCODONE/APAP (5/325) TAB PO ×2 (15:30)
[2018-02-16] MEDS ORDERED: BISACODYL 10 MG SUPP PR (15:30)
[2018-02-16] MEDS ORDERED: MAGNESIUM HYDROXIDE 30ML CUP PO (15:30)
[2018-02-16] MEDS: AZITHROMYCIN 500MG/NS (PMX) 250 ML IVPB (16:17)
[2018-02-16] MEDS: morphine 2 MG INJ IV ×2 (16:49→21:06)
[2018-02-16] MEDS: ONDANSETRON 4 MG INJ IV (16:49)
[2018-02-16] MEDS ORDERED: FUROSEMIDE 20 MG INJ IV (18:00)
[2018-02-16] MEDS ORDERED: DEXTROSE 50% 50 ML SYRINGE IV ×2 (18:30)
[2018-02-16] MEDS ORDERED: GLUCOSE GEL 15 GRAM TUBE BUCCAL (18:30)
[2018-02-16] MEDS ORDERED: GLUCOSE GEL 15 GRAM TUBE PO ×2 (18:30)
[2018-02-16] MEDS ORDERED: GLUCAGON 1 MG INJ IM (18:30)
[2018-02-16] MEDS: INSULIN ASPART [NOVOLOG] 3 ML PEN SC (18:45)
[2018-02-16] MEDS: BUMETANIDE 1 MG TAB PO (20:51)
[2018-02-16] MEDS: EZETIMIBE 10 MG TAB PO (20:52)
[2018-02-16] MEDS: APIXABAN 5 MG TABLET PO (20:52)
[2018-02-16] MEDS: NIFEdipine (XL) 60 MG TAB PO (20:52)
[2018-02-16] MEDS: ATORVASTATIN 80 MG TAB PO (20:52)
[2018-02-16] MEDS: INSULIN GLARGINE [LANTus] (100 UNITS/ML) SYG SC (20:58)
[2018-02-16] MEDS ORDERED: POTASSIUM CHLORIDE (SR) 10 MEQ TAB PO (21:00)
[2018-02-16] MEDS: hydrALAzine 20 MG INJ IV (23:01)
[2018-02-17 01:18] LABS: CREATINE KINASE 293 IU/L (23-200)
[2018-02-17 01:27] LABS: CK INDEX 2.5; TROPONIN-I < 0.012 ng/ml (0.000-0.120)
[2018-02-17] MEDS: PANTOPRAZOLE 40 MG INJ IV (06:30)
[2018-02-17] MEDS: BUMETANIDE 1 MG TAB PO (06:31)
[2018-02-17] MEDS: morphine 2 MG INJ IV ×2 (06:38→20:35)
[2018-02-17 06:46] LABS: ADD MAN DIFF? NO
[2018-02-17 06:54] LABS: WHITE BLOOD COUNT 6.6 10^3/ul (4.8-10.8)
[2018-02-17 06:54] LABS: BASOPHILS % 0.3 % (0.0-2.0); EOSINOPHILS # 0.7 10^3/ul (0.0-0.5); EOSINOPHILS % 10.2 % (0.0-7.0); HEMATOCRIT 24.4 % (42.0-52.0); HEMOGLOBIN 7.8 g/dl (14.0-18.0); LYMPHOCYTES # 1.3 10^3/ul (0.8-2.9); MEAN CORPUSCULAR HEMOGLOBIN 27.6 pg (29.0-33.0); MEAN CORPUSCULAR VOLUME 86.2 fl (82.0-101.0); MONOCYTE # 0.6 10^3/ul (0.3-0.9); MONOCYTES % 9.5 % (0.0-11.0); NEUTROPHILS % 59.8 % (39.0-77.0); PLATELET COUNT 238 10^3/UL (140-415); RED BLOOD COUNT 2.83 10^6/ul (4.70-6.10); RED CELL DISTRIBUTION WIDTH 14.4 % (11.5-14.5)
[2018-02-17] MEDS: INSULIN ASPART [NOVOLOG] 3 ML PEN SC ×3 (07:55→17:25)
[2018-02-17] MEDS: SEVELAMER CARBONATE 800 MG TABLET PO ×3 (07:59→17:54)
[2018-02-17] MEDS: CHOLECALCIFEROL 2,000 UNIT CAP PO (08:32)
[2018-02-17] MEDS: NIFEdipine (XL) 60 MG TAB PO ×2 (08:32→20:23)
[2018-02-17] MEDS: APIXABAN 5 MG TABLET PO ×3 (08:32→20:33)
[2018-02-17] MEDS: ISOSORBIDE MONONITRATE(SR)30 MG TAB PO (08:32)
[2018-02-17] MEDS: LOSARTAN 25 MG TAB PO (08:32)
[2018-02-17] MEDS: SPIRONOLACTONE 25 MG TAB PO (08:33)
[2018-02-17 08:50] LABS: ALANINE AMINOTRANSFERASE 45 IU/L (13-69); ALBUMIN 3.3 g/dl (3.3-4.9); ALBUMIN/GLOBULIN RATIO 1.26; ALKALINE PHOSPHATASE 92 IU/L (42-121); ANION GAP 11 (8-16); ASPARTATE AMINO TRANSFERASE 28 IU/L (15-46); BILIRUBIN,INDIRECT 0.5 mg/dl (0-1.1); BILIRUBIN,TOTAL 0.5 mg/dl (0.2-1.3); BLOOD UREA NITROGEN 52 mg/dl (7-20); CALCIUM 8.6 mg/dl (8.4-10.2); CARBON DIOXIDE 26 mmol/L (21-31); CHLORIDE 110 mmol/L (97-110); CHOL/HDL RATIO 2.9 RATIO; CHOLESTEROL 67 mg/dl (100-200); CREATININE 2.65 mg/dl (0.61-1.24); GLUCOSE 54 mg/dl (70-220); HDL CHOLESTEROL 23 mg/dl (27-67); LDL CHOLESTEROL,CALCULATED 31 mg/dl; MAGNESIUM 2.3 mg/dl (1.7-2.5); PHOSPHORUS 5.6 mg/dl (2.5-4.9); POTASSIUM 4.2 mmol/L (3.5-5.1); SODIUM 143 mmol/L (135-144); TOTAL PROTEIN 5.9 g/dl (6.1-8.1); TRIGLYCERIDES 64 mg/dl (0-149)
[2018-02-17 09:31] LABS: HEMOGLOBIN A1C 6.9 % (0-5.9)
[2018-02-17 10:15] LABS: FREE THYROXINE INDEX (Calc) 3.57 ug/ml (0.65-3.89); T3 UPTAKE 35.3 % (23.5-40.5); T4 (THYROXINE) 10.1 ug/dl (5.5-11.0)
[2018-02-17] MEDS: BUMETANIDE 12 MG in DEXTROSE 5% 72 ML IV (13:02)
[2018-02-17] MEDS: LEVOFLOXACIN 500MG/D5W (PMX) 100 ML IVPB (17:15)
[2018-02-17] MEDS: LEVOFLOXACIN 250MG/D5W (PMX) 50 ML IVPB (17:56)
[2018-02-17] MEDS: ATORVASTATIN 80 MG TAB PO (20:22)
[2018-02-17] MEDS: EZETIMIBE 10 MG TAB PO (20:22)
[2018-02-17] MEDS: INSULIN GLARGINE [LANTus] (100 UNITS/ML) SYG SC (20:44)
[2018-02-17] MEDS: ZOLPIDEM 5 MG TAB PO ×2 (22:23→22:32)
[2018-02-17] MEDS: DOCUSATE SODIUM 100 MG CAP PO (22:33)
[2018-02-18] MEDS: PANTOPRAZOLE 40 MG INJ IV (05:27)
[2018-02-18 06:52] LABS: ADD MAN DIFF? NO
[2018-02-18 07:02] LABS: WHITE BLOOD COUNT 5.4 10^3/ul (4.8-10.8)
[2018-02-18 07:02] LABS: BASOPHILS % 0.4 % (0.0-2.0); EOSINOPHILS # 0.5 10^3/ul (0.0-0.5); EOSINOPHILS % 9.6 % (0.0-7.0); HEMATOCRIT 22.8 % (42.0-52.0); HEMOGLOBIN 7.2 g/dl (14.0-18.0); MEAN CORPUSCULAR HEMOGLOBIN 26.7 pg (29.0-33.0); MEAN CORPUSCULAR HGB CONC 31.6 g/dl (32.0-37.0); MEAN CORPUSCULAR VOLUME 84.4 fl (82.0-101.0); MEAN PLATELET VOLUME 11.1 fl (7.4-10.4); MONOCYTE # 0.6 10^3/ul (0.3-0.9); MONOCYTES % 10.5 % (0.0-11.0); NEUTROPHIL # 3.3 10^3/ul (1.6-7.5); NEUTROPHILS % 60.3 % (39.0-77.0); PLATELET COUNT 210 10^3/UL (140-415); RED CELL DISTRIBUTION WIDTH 14.3 % (11.5-14.5)
[2018-02-18 07:18] LABS: INR 1.11; PROTIME 14.5 Sec (11.9-14.9); PT RATIO 1.1
[2018-02-18 07:20] LABS: PARTIAL THROMBOPLASTIN TIME 62.4 Sec (25.0-35.0)
[2018-02-18] MEDS: INSULIN ASPART [NOVOLOG] 3 ML PEN SC ×3 (07:55→17:30)
[2018-02-18 08:00] LABS: ALANINE AMINOTRANSFERASE 43 IU/L (13-69); ALBUMIN/GLOBULIN RATIO 1.11; ALKALINE PHOSPHATASE 89 IU/L (42-121); ANION GAP 15 (8-16); ASPARTATE AMINO TRANSFERASE 20 IU/L (15-46); BILIRUBIN,INDIRECT 0.3 mg/dl (0-1.1); BILIRUBIN,TOTAL 0.3 mg/dl (0.2-1.3); BLOOD UREA NITROGEN 60 mg/dl (7-20); CARBON DIOXIDE 26 mmol/L (21-31); CHLORIDE 104 mmol/L (97-110); CREATININE 2.83 mg/dl (0.61-1.24); GLUCOSE 104 mg/dl (70-220); POTASSIUM 4.2 mmol/L (3.5-5.1); SODIUM 141 mmol/L (135-144); TOTAL PROTEIN 5.7 g/dl (6.1-8.1)
[2018-02-18 08:26] LABS: CALCIUM 8.3 mg/dl (8.4-10.2)
[2018-02-18] MEDS: CHOLECALCIFEROL 2,000 UNIT CAP PO (08:27)
[2018-02-18] MEDS: SEVELAMER CARBONATE 800 MG TABLET PO ×3 (08:27→17:26)
[2018-02-18] MEDS: NIFEdipine (XL) 60 MG TAB PO ×2 (08:28→20:10)
[2018-02-18] MEDS: SPIRONOLACTONE 25 MG TAB PO (08:28)
[2018-02-18] MEDS: ISOSORBIDE MONONITRATE(SR)30 MG TAB PO (08:29)
[2018-02-18] MEDS: LOSARTAN 25 MG TAB PO (08:29)
[2018-02-18] MEDS: APIXABAN 5 MG TABLET PO ×2 (08:30→10:42)
[2018-02-18] MEDS: BUMETANIDE 12 MG in DEXTROSE 5% 72 ML IV (10:31)
[2018-02-18] MEDS: morphine LIQ (10 MG/5 ML) CUP PO (10:47)
[2018-02-18] MEDS ORDERED: ALBUTEROL/IPRATROPIUM (NEB) 3 ML AMP NEB (11:00)
[2018-02-18] MEDS: LEVOFLOXACIN 250MG/D5W (PMX) 50 ML IVPB (17:27)
[2018-02-18] MEDS: ATORVASTATIN 80 MG TAB PO (20:10)
[2018-02-18] MEDS: EZETIMIBE 10 MG TAB PO (20:11)
[2018-02-18] MEDS: INSULIN GLARGINE [LANTus] (100 UNITS/ML) SYG SC (20:16)
[2018-02-18] MEDS: hydrALAzine 20 MG INJ IV (21:54)
[2018-02-18] MEDS: ZOLPIDEM 5 MG TAB PO (23:17)
[2018-02-19] MEDS: BUMETANIDE 1 MG INJ IV ×2 (05:22→17:24)
[2018-02-19] MEDS: PANTOPRAZOLE 40 MG INJ IV (05:22)
[2018-02-19] MEDS: INSULIN ASPART [NOVOLOG] 3 ML PEN SC ×3 (07:55→17:25)
[2018-02-19] MEDS: APIXABAN 5 MG TABLET PO ×2 (08:09→20:32)
[2018-02-19] MEDS: NIFEdipine (XL) 60 MG TAB PO ×2 (08:10→20:35)
[2018-02-19] MEDS: CHOLECALCIFEROL 2,000 UNIT CAP PO (08:10)
[2018-02-19] MEDS: SPIRONOLACTONE 25 MG TAB PO (08:11)
[2018-02-19] MEDS: SEVELAMER CARBONATE 800 MG TABLET PO ×3 (08:11→17:25)
[2018-02-19] MEDS: LOSARTAN 25 MG TAB PO (08:11)
[2018-02-19] MEDS: ISOSORBIDE MONONITRATE(SR)30 MG TAB PO (08:11)
[2018-02-19] MEDS: LEVOFLOXACIN 250 MG TAB PO (17:25)
[2018-02-19] MEDS: EPOETIN 3000 UNITS/ML (NON ESRD/NON ONCOLOGY) SC (17:26)
[2018-02-19] MEDS: EZETIMIBE 10 MG TAB PO (20:32)
[2018-02-19] MEDS: ATORVASTATIN 80 MG TAB PO (20:32)
[2018-02-19] MEDS: INSULIN GLARGINE [LANTus] (100 UNITS/ML) SYG SC (20:45)
[2018-02-20] MEDS: ZOLPIDEM 5 MG TAB PO (00:12)
[2018-02-20] MEDS: hydrALAzine 20 MG INJ IV (01:54)
[2018-02-20] MEDS: BUMETANIDE 1 MG INJ IV (05:15)
[2018-02-20] MEDS: PANTOPRAZOLE 40 MG INJ IV (05:15)
[2018-02-20] MEDS: LEVOFLOXACIN 250 MG TAB PO (05:15)
[2018-02-20 06:57] LABS: ADD MAN DIFF? NO
[2018-02-20 07:02] LABS: WHITE BLOOD COUNT 6.3 10^3/ul (4.8-10.8)
[2018-02-20 07:02] LABS: BASOPHILS % 0.5 % (0.0-2.0); EOSINOPHILS # 0.4 10^3/ul (0.0-0.5); EOSINOPHILS % 6.8 % (0.0-7.0); HEMATOCRIT 24.3 % (42.0-52.0); LYMPHOCYTES # 1.3 10^3/ul (0.8-2.9); LYMPHOCYTES % 21.1 % (15.0-51.0); MEAN CORPUSCULAR HEMOGLOBIN 27.3 pg (29.0-33.0); MEAN CORPUSCULAR HGB CONC 32.9 g/dl (32.0-37.0); MEAN CORPUSCULAR VOLUME 82.9 fl (82.0-101.0); MEAN PLATELET VOLUME 10.7 fl (7.4-10.4); MONOCYTE # 0.7 10^3/ul (0.3-0.9); MONOCYTES % 10.7 % (0.0-11.0); NEUTROPHIL # 3.9 10^3/ul (1.6-7.5); NEUTROPHILS % 60.7 % (39.0-77.0); PLATELET COUNT 218 10^3/UL (140-415); RED BLOOD COUNT 2.93 10^6/ul (4.70-6.10); RED CELL DISTRIBUTION WIDTH 14.5 % (11.5-14.5)
[2018-02-20] MEDS: INSULIN ASPART [NOVOLOG] 3 ML PEN SC ×2 (07:55→11:38)
[2018-02-20 08:14] LABS: ANION GAP 14 (8-16); CARBON DIOXIDE 28 mmol/L (21-31); CHLORIDE 105 mmol/L (97-110); POTASSIUM 3.7 mmol/L (3.5-5.1); SODIUM 143 mmol/L (135-144)
[2018-02-20 08:17] LABS: BLOOD UREA NITROGEN 70 mg/dl (7-20); CALCIUM 8.7 mg/dl (8.4-10.2); CREATININE 2.83 mg/dl (0.61-1.24); GLUCOSE 58 mg/dl (70-220)
[2018-02-20] MEDS: SEVELAMER CARBONATE 800 MG TABLET PO ×2 (08:21→11:31)
[2018-02-20] MEDS: CHOLECALCIFEROL 2,000 UNIT CAP PO (08:22)
[2018-02-20] MEDS: ISOSORBIDE MONONITRATE(SR)30 MG TAB PO (08:23)
[2018-02-20] MEDS: SPIRONOLACTONE 25 MG TAB PO (08:23)
[2018-02-20] MEDS: NIFEdipine (XL) 60 MG TAB PO (08:23)
[2018-02-20] MEDS: LOSARTAN 25 MG TAB PO (08:23)
[2018-02-20] MEDS: APIXABAN 5 MG TABLET PO (08:24)
== END 2018-02-20 14:03 | disposition home or self-care (01) | DRG 291 ==
LOC: E/R 11:35 → TEL 15:26
DX: I13.0 Hypertensive heart and chronic kidney disease with heart failure and stage 1 through stage 4 chronic kidney disease, or unspecified chronic kidney disease (principal); J18.9 Pneumonia, unspecified organism; I50.33 Acute on chronic diastolic (congestive) heart failure; N17.9 Acute kidney failure, unspecified; N18.3 Chronic kidney disease, stage 3 (moderate); E11.21 Type 2 diabetes mellitus with diabetic nephropathy; I48.0 Paroxysmal atrial fibrillation; E11.22 Type 2 diabetes mellitus with diabetic chronic kidney disease; E83.39 Other disorders of phosphorus metabolism; E78.5 Hyperlipidemia, unspecified; D63.1 Anemia in chronic kidney disease; D63.8 Anemia in other chronic diseases classified elsewhere; E66.9 Obesity, unspecified; Z68.38 Body mass index [BMI] 38.0-38.9, adult; Z79.4 Long term (current) use of insulin; Z79.84 Long term (current) use of oral hypoglycemic drugs; Z89.412 Acquired absence of left great toe
CPT/HCPCS: 36415; 71045; 80048; 80053; 80061; 82550; 82553; 82962; 83036; 83735; 83880; 84100; 84436; 84443; 84479; 84484; 85025; 85610; 85730; 93005; 96374; 96375; 99285-25

== ENCOUNTER 2018-06-12 19:01 | Emergency (ER) | payer OTHER ==
[2018-06-12 21:56] LABS: ADD MAN DIFF? NO
[2018-06-12 21:58] LABS: BASOPHILS % 0.4 % (0.0-2.0); EOSINOPHILS # 0.7 10^3/ul (0.0-0.5); EOSINOPHILS % 7.4 % (0.0-7.0); HEMATOCRIT 26.3 % (42.0-52.0); HEMOGLOBIN 8.9 g/dl (14.0-18.0); LYMPHOCYTES # 1.3 10^3/ul (0.8-2.9); LYMPHOCYTES % 14.4 % (15.0-51.0); MEAN CORPUSCULAR HEMOGLOBIN 26.9 pg (29.0-33.0); MEAN CORPUSCULAR HGB CONC 33.8 g/dl (32.0-37.0); MEAN CORPUSCULAR VOLUME 79.5 fl (82.0-101.0); MONOCYTE # 0.8 10^3/ul (0.3-0.9); MONOCYTES % 8.8 % (0.0-11.0); NEUTROPHIL # 6.2 10^3/ul (1.6-7.5); NEUTROPHILS % 68.2 % (39.0-77.0); PLATELET COUNT 239 10^3/UL (140-415); RED BLOOD COUNT 3.31 10^6/ul (4.70-6.10); RED CELL DISTRIBUTION WIDTH 12.5 % (11.5-14.5)
[2018-06-12 21:58] LABS: WHITE BLOOD COUNT 9.1 10^3/ul (4.8-10.8)
[2018-06-12] MEDS: morphine 4 MG/ML VIAL IV (22:05)
[2018-06-12 22:17] LABS: ALANINE AMINOTRANSFERASE 93 IU/L (13-69); ALBUMIN 3.8 g/dl (3.3-4.9); ALBUMIN/GLOBULIN RATIO 1.18; ALKALINE PHOSPHATASE 207 IU/L (42-121); ANION GAP 10 (5-13); ASPARTATE AMINO TRANSFERASE 43 IU/L (15-46); BLOOD UREA NITROGEN 68 mg/dl (7-20); CARBON DIOXIDE 24 mmol/L (21-31); CHLORIDE 100 mmol/L (97-110); CREATININE 3.38 mg/dl (0.61-1.24); Estimated GFR 20 mL/min (>60); GLUCOSE 246 mg/dl (70-220); POTASSIUM 4.5 mmol/L (3.5-5.1); SODIUM 134 mmol/L (135-144)
[2018-06-12 22:28] LABS: B-TYPE NATRIURETIC PEPTIDE 3560 PG/ML (0-125); TROPONIN-I 0.023 ng/ml (0.000-0.120)
[2018-06-12] MEDS: BUMETANIDE 1 MG INJ IV (23:49)
== END 2018-06-12 23:56 | disposition home or self-care (01) ==
LOC: E/R 23:56
DX: R60.0 Localized edema (principal); I50.9 Heart failure, unspecified; N18.3 Chronic kidney disease, stage 3 (moderate); I13.0 Hypertensive heart and chronic kidney disease with heart failure and stage 1 through stage 4 chronic kidney disease, or unspecified chronic kidney disease; E11.22 Type 2 diabetes mellitus with diabetic chronic kidney disease; F17.210 Nicotine dependence, cigarettes, uncomplicated; D50.9 Iron deficiency anemia, unspecified; Z79.4 Long term (current) use of insulin
CPT/HCPCS: 36415; 71045; 80053; 83880; 84484; 85025; 93005; 96374; 96375; 99285-25

== ENCOUNTER 2018-06-26 06:46 | Inpatient (IN) | payer OTHER ==
[2018-06-26 07:59] LABS: ADD MAN DIFF? NO
[2018-06-26 08:01] LABS: WHITE BLOOD COUNT 7.4 10^3/ul (4.8-10.8)
[2018-06-26 08:01] LABS: BASOPHILS % 0.5 % (0.0-2.0); EOSINOPHILS # 0.6 10^3/ul (0.0-0.5); EOSINOPHILS % 8.3 % (0.0-7.0); LYMPHOCYTES # 1.1 10^3/ul (0.8-2.9); LYMPHOCYTES % 15.4 % (15.0-51.0); MEAN CORPUSCULAR HEMOGLOBIN 26.9 pg (29.0-33.0); MEAN CORPUSCULAR VOLUME 84.2 fl (82.0-101.0); MONOCYTE # 0.7 10^3/ul (0.3-0.9); MONOCYTES % 9.8 % (0.0-11.0); NEUTROPHIL # 4.8 10^3/ul (1.6-7.5); NEUTROPHILS % 65.5 % (39.0-77.0); PLATELET COUNT 220 10^3/UL (140-415); RED BLOOD COUNT 2.97 10^6/ul (4.70-6.10); RED CELL DISTRIBUTION WIDTH 13.2 % (11.5-14.5)
[2018-06-26] MEDS: ENALAPRILAT 1.25 MG INJ IV (08:02)
[2018-06-26] MEDS: FUROSEMIDE 40 MG INJ IV (08:02)
[2018-06-26 08:20] LABS: INR 1.32; PROTIME 16.5 Sec (11.9-14.9); PT RATIO 1.3
[2018-06-26 08:21] LABS: ALANINE AMINOTRANSFERASE 39 IU/L (13-69); ALBUMIN 3.5 g/dl (3.3-4.9); ALKALINE PHOSPHATASE 101 IU/L (42-121); ANION GAP 11 (5-13); ASPARTATE AMINO TRANSFERASE 25 IU/L (15-46); BILIRUBIN,INDIRECT 0.2 mg/dl (0-1.1); BILIRUBIN,TOTAL 0.2 mg/dl (0.2-1.3); BLOOD UREA NITROGEN 78 mg/dl (7-20); CALCIUM 8.6 mg/dl (8.4-10.2); CARBON DIOXIDE 24 mmol/L (21-31); CHLORIDE 103 mmol/L (97-110); CREATININE 3.61 mg/dl (0.61-1.24); Estimated GFR 18 mL/min (>60); GLUCOSE 209 mg/dl (70-220); LIPASE 246 U/L (23-300); POTASSIUM 4.4 mmol/L (3.5-5.1); SODIUM 138 mmol/L (135-144); TOTAL PROTEIN 6.4 g/dl (6.1-8.1)
[2018-06-26 08:32] LABS: B-TYPE NATRIURETIC PEPTIDE 3980 PG/ML (0-125)
[2018-06-26 08:35] LABS: ADD UMIC YES; UR ASCORBIC ACID NEGATIVE (NEGATIVE); UR BACTERIA FEW /HPF (NONE SEEN); UR BILIRUBIN (Dip) NEGATIVE (NEGATIVE); UR BLOOD (Dip) NEGATIVE (NEGATIVE); UR CLARITY CLEAR (CLEAR); UR COLOR YELLOW (YELLOW); UR GLUCOSE (Dip) 2+ mg/dL (NEGATIVE); UR KETONES (Dip) NEGATIVE (NEGATIVE); UR LEUKOCYTE ESTERASE (Dip) NEGATIVE Leu/ul (NEGATIVE); UR NITRITE (Dip) NEGATIVE (NEGATIVE); UR RBC 1 /HPF (0-5); UR TOTAL PROTEIN (Dip) 3+ mg/dl (NEGATIVE); UR UROBILINOGEN (Dip) NEGATIVE (NEGATIVE); UR WBC 0 /HPF (0-5)
[2018-06-26] MEDS: ASPIRIN 81 MG TAB PO (08:43)
[2018-06-26 08:51] LABS: TROPONIN-I 0.017 ng/ml (0.000-0.120)
[2018-06-26 08:59] LABS: PARTIAL THROMBOPLASTIN TIME 91.2 Sec (23.0-35.0)
[2018-06-26] MEDS ORDERED: NITROGLYCERIN (SL) 0.4 MG TAB SL (12:30)
[2018-06-26] MEDS ORDERED: LORAZEPAM 0.5 MG TAB PO (12:30)
[2018-06-26] MEDS ORDERED: HYDROCODONE/APAP (5/325) TAB PO (13:00)
[2018-06-26] MEDS ORDERED: DEXTROSE 50% 50 ML SYRINGE IV ×2 (13:00)
[2018-06-26] MEDS ORDERED: GLUCOSE GEL 15 GRAM TUBE BUCCAL (13:00)
[2018-06-26] MEDS ORDERED: GLUCAGON 1 MG INJ IM (13:00)
[2018-06-26] MEDS ORDERED: GLUCOSE GEL 15 GRAM TUBE PO ×2 (13:00)
[2018-06-26] MEDS: DOCUSATE SODIUM 100 MG CAP PO (13:51)
[2018-06-26] MEDS: ALBUMIN HUMAN 25% 100 ML IV ×2 (13:53→21:18)
[2018-06-26 14:03] LABS: AMPHETAMINE/METHAMPHETAMINE Negative (NEGATIVE); BARBITURATES Negative (NEGATIVE); BENZODIAZEPINES Negative (NEGATIVE); CANNABINOIDS Negative (NEGATIVE); COCAINE Positive (NEGATIVE); OPIATES Negative (NEGATIVE)
[2018-06-26] MEDS: morphine 4 MG/ML VIAL IV ×2 (14:03→21:02)
[2018-06-26] MEDS: BUMETANIDE 12 MG in DEXTROSE 5% 72 ML IV (15:22)
[2018-06-26] MEDS: INSULIN ASPART [NOVOLOG] 3 ML PEN SC (17:12)
[2018-06-26 18:54] LABS: CREATINE KINASE 278 IU/L (23-200)
[2018-06-26 19:07] LABS: CK INDEX 2.4; TROPONIN-I 0.015 ng/ml (0.000-0.120)
[2018-06-26 19:09] LABS: CK-MB 6.66 ng/ml (0.0-2.4)
[2018-06-26] MEDS: ATORVASTATIN 80 MG TAB PO (20:51)
[2018-06-26] MEDS: FAMOTIDINE 20 MG TAB PO (20:51)
[2018-06-26] MEDS: EZETIMIBE 10 MG TAB PO (20:51)
[2018-06-26] MEDS: INSULIN GLARGINE [LANTus] (100 UNITS/ML) SYG SC (20:52)
[2018-06-26] MEDS: NIFEdipine (XL) 60 MG TAB PO (20:52)
[2018-06-26] MEDS: APIXABAN 5 MG TABLET PO (21:03)
[2018-06-26 22:51] LABS: CREATINE KINASE 299 IU/L (23-200)
[2018-06-26 23:03] LABS: CK INDEX 2.2; TROPONIN-I 0.017 ng/ml (0.000-0.120)
[2018-06-26 23:04] LABS: CK-MB 6.61 ng/ml (0.0-2.4)
[2018-06-27] MEDS: DOCUSATE SODIUM 100 MG CAP PO ×2 (00:30→11:43)
[2018-06-27] MEDS: ZOLPIDEM 5 MG TAB PO ×2 (01:44→22:38)
[2018-06-27] MEDS: ALBUMIN HUMAN 25% 100 ML IV ×3 (06:15→22:38)
[2018-06-27] MEDS: morphine 4 MG/ML VIAL IV ×3 (06:22→22:35)
[2018-06-27 06:25] LABS: ADD MAN DIFF? NO
[2018-06-27 06:34] LABS: BASOPHIL # 0.1 10^3/ul (0.0-0.1); BASOPHILS % 0.6 % (0.0-2.0); EOSINOPHILS # 0.7 10^3/ul (0.0-0.5); EOSINOPHILS % 8.3 % (0.0-7.0); HEMOGLOBIN 7.5 g/dl (14.0-18.0); LYMPHOCYTES # 1.2 10^3/ul (0.8-2.9); LYMPHOCYTES % 15.5 % (15.0-51.0); MEAN CORPUSCULAR HEMOGLOBIN 26.6 pg (29.0-33.0); MEAN CORPUSCULAR HGB CONC 31.3 g/dl (32.0-37.0); MEAN CORPUSCULAR VOLUME 85.1 fl (82.0-101.0); MEAN PLATELET VOLUME 11.8 fl (7.4-10.4); MONOCYTE # 0.9 10^3/ul (0.3-0.9); MONOCYTES % 10.7 % (0.0-11.0); NEUTROPHIL # 5.1 10^3/ul (1.6-7.5); NEUTROPHILS % 64.3 % (39.0-77.0); PLATELET COUNT 210 10^3/UL (140-415); RED BLOOD COUNT 2.82 10^6/ul (4.70-6.10); RED CELL DISTRIBUTION WIDTH 13.2 % (11.5-14.5)
[2018-06-27 06:34] LABS: WHITE BLOOD COUNT 7.9 10^3/ul (4.8-10.8)
[2018-06-27 06:56] LABS: ANION GAP 9 (5-13); BLOOD UREA NITROGEN 86 mg/dl (7-20); CALCIUM 8.7 mg/dl (8.4-10.2); CARBON DIOXIDE 25 mmol/L (21-31); CHLORIDE 102 mmol/L (97-110); CHOL/HDL RATIO 5.3 RATIO; CHOLESTEROL 102 mg/dl (100-200); CREATININE 3.66 mg/dl (0.61-1.24); Estimated GFR 18 mL/min (>60); GLUCOSE 183 mg/dl (70-220); HDL CHOLESTEROL 19 mg/dl (27-67); LDL CHOLESTEROL,CALCULATED 56 mg/dl; MAGNESIUM 2.4 mg/dl (1.7-2.5); POTASSIUM 4.7 mmol/L (3.5-5.1); SODIUM 136 mmol/L (135-144); TRIGLYCERIDES 137 mg/dl (0-149)
[2018-06-27 07:04] LABS: IRON 55 ug/dl (35-150)
[2018-06-27 07:13] LABS: % IRON SATURATION 17 % SAT (22-52); TOTAL IRON BINDING CAPACITY 320 ug/dl (241-421)
[2018-06-27] MEDS: INSULIN ASPART [NOVOLOG] 3 ML PEN SC ×3 (08:11→17:17)
[2018-06-27] MEDS: ISOSORBIDE MONONITRATE(SR)30 MG TAB PO (08:14)
[2018-06-27] MEDS: FAMOTIDINE 20 MG TAB PO ×2 (08:14→20:22)
[2018-06-27] MEDS: APIXABAN 5 MG TABLET PO ×2 (08:14→20:22)
[2018-06-27] MEDS: SPIRONOLACTONE 25 MG TAB PO (08:14)
[2018-06-27] MEDS: NIFEdipine (XL) 60 MG TAB PO (08:15)
[2018-06-27] MEDS: SEVELAMER CARBONATE 800 MG TABLET PO ×3 (08:15→17:15)
[2018-06-27] MEDS: CHOLECALCIFEROL 1,000 UNIT TAB PO (08:16)
[2018-06-27] MEDS: BUMETANIDE 1 MG INJ IV ×2 (08:18→17:15)
[2018-06-27] MEDS ORDERED: LOSARTAN 25 MG TAB PO (09:00)
[2018-06-27] MEDS: DOXAZOSIN 1 MG TAB PO (11:44)
[2018-06-27] MEDS: EPOETIN 3000 UNITS/ML (NON ESRD/NON ONCOLOGY) SC (17:00)
[2018-06-27] MEDS: EZETIMIBE 10 MG TAB PO (20:21)
[2018-06-27] MEDS: ATORVASTATIN 80 MG TAB PO (20:22)
[2018-06-27] MEDS: LOSARTAN 25 MG TAB PO (20:22)
[2018-06-27] MEDS: DOXAZOSIN 2 MG TAB PO (20:23)
[2018-06-27] MEDS: INSULIN GLARGINE [LANTus] (100 UNITS/ML) SYG SC (20:32)
[2018-06-28] MEDS: DOCUSATE SODIUM 100 MG CAP PO ×3 (00:05→23:31)
[2018-06-28] MEDS: morphine 4 MG/ML VIAL IV ×2 (04:44→18:23)
[2018-06-28] MEDS: BUMETANIDE 1 MG INJ IV (05:06)
[2018-06-28] MEDS: ALBUMIN HUMAN 25% 100 ML IV (05:07)
[2018-06-28 06:03] LABS: ADD MAN DIFF? NO
[2018-06-28 06:10] LABS: BASOPHILS % 0.5 % (0.0-2.0); EOSINOPHILS # 0.5 10^3/ul (0.0-0.5); HEMATOCRIT 22.5 % (42.0-52.0); HEMOGLOBIN 7.1 g/dl (14.0-18.0); LYMPHOCYTES % 15.1 % (15.0-51.0); MEAN CORPUSCULAR HEMOGLOBIN 26.7 pg (29.0-33.0); MEAN CORPUSCULAR HGB CONC 31.6 g/dl (32.0-37.0); MEAN CORPUSCULAR VOLUME 84.6 fl (82.0-101.0); MEAN PLATELET VOLUME 11.2 fl (7.4-10.4); MONOCYTE # 0.7 10^3/ul (0.3-0.9); MONOCYTES % 10.2 % (0.0-11.0); NEUTROPHIL # 4.2 10^3/ul (1.6-7.5); NEUTROPHILS % 65.7 % (39.0-77.0); PLATELET COUNT 198 10^3/UL (140-415); RED BLOOD COUNT 2.66 10^6/ul (4.70-6.10); RED CELL DISTRIBUTION WIDTH 13.1 % (11.5-14.5)
[2018-06-28 06:10] LABS: WHITE BLOOD COUNT 6.4 10^3/ul (4.8-10.8)
[2018-06-28 06:43] LABS: ALANINE AMINOTRANSFERASE 26 IU/L (13-69); ALBUMIN 4.1 g/dl (3.3-4.9); ALBUMIN/GLOBULIN RATIO 1.57; ALKALINE PHOSPHATASE 65 IU/L (42-121); ANION GAP 12 (5-13); ASPARTATE AMINO TRANSFERASE 23 IU/L (15-46); BILIRUBIN,INDIRECT 0.3 mg/dl (0-1.1); BILIRUBIN,TOTAL 0.3 mg/dl (0.2-1.3); BLOOD UREA NITROGEN 88 mg/dl (7-20); CALCIUM 9.1 mg/dl (8.4-10.2); CARBON DIOXIDE 25 mmol/L (21-31); CHLORIDE 100 mmol/L (97-110); CREATININE 3.72 mg/dl (0.61-1.24); Estimated GFR 18 mL/min (>60); GLUCOSE 91 mg/dl (70-220); POTASSIUM 4.5 mmol/L (3.5-5.1); SODIUM 137 mmol/L (135-144); TOTAL PROTEIN 6.7 g/dl (6.1-8.1)
[2018-06-28 06:58] LABS: MAGNESIUM 2.2 mg/dl (1.7-2.5)
[2018-06-28 06:58] LABS: PHOSPHORUS 6.3 mg/dl (2.5-4.9)
[2018-06-28] MEDS: INSULIN ASPART [NOVOLOG] 3 ML PEN SC ×3 (07:31→16:56)
[2018-06-28] MEDS: SEVELAMER CARBONATE 800 MG TABLET PO ×3 (07:34→16:56)
[2018-06-28] MEDS: ISOSORBIDE MONONITRATE(SR)30 MG TAB PO (08:04)
[2018-06-28] MEDS: APIXABAN 5 MG TABLET PO ×2 (08:04→20:31)
[2018-06-28] MEDS: SPIRONOLACTONE 25 MG TAB PO (08:04)
[2018-06-28] MEDS: FAMOTIDINE 20 MG TAB PO ×2 (08:04→20:31)
[2018-06-28] MEDS: CHOLECALCIFEROL 1,000 UNIT TAB PO (08:05)
[2018-06-28] MEDS: NIFEdipine (XL) 60 MG TAB PO (08:06)
[2018-06-28] MEDS: ISOSORBIDE DINITRATE 20 MG TAB PO ×2 (12:36→20:32)
[2018-06-28] MEDS: EZETIMIBE 10 MG TAB PO (20:25)
[2018-06-28] MEDS: INSULIN GLARGINE [LANTus] (100 UNITS/ML) SYG SC (20:27)
[2018-06-28] MEDS: ACETAMINOPHEN 325 MG TAB PO (20:30)
[2018-06-28] MEDS: ATORVASTATIN 80 MG TAB PO (20:32)
[2018-06-28] MEDS: DOXAZOSIN 2 MG TAB PO (20:32)
[2018-06-28] MEDS: LOSARTAN 25 MG TAB PO (20:32)
[2018-06-28] MEDS ORDERED: DOXAZOSIN 2 MG TAB PO (21:00)
[2018-06-28] MEDS: ONDANSETRON 4 MG INJ IV (22:39)
[2018-06-28] MEDS: LEVOFLOXACIN 500MG/D5W (PMX) 100 ML IVPB (23:26)
[2018-06-28 23:49] LABS: LACTIC ACID 0.8 mmol/L (0.5-2.0)
[2018-06-29] MEDS: ACETAMINOPHEN 325 MG TAB PO ×4 (02:33→19:37)
[2018-06-29] MEDS: morphine 4 MG/ML VIAL IV ×2 (02:59→11:17)
[2018-06-29] MEDS ORDERED: OSELTAMIVIR 30 MG CAP PO (05:00)
[2018-06-29 05:59] LABS: ANION GAP 12 (5-13); BLOOD UREA NITROGEN 88 mg/dl (7-20); CALCIUM 8.8 mg/dl (8.4-10.2); CARBON DIOXIDE 22 mmol/L (21-31); CHLORIDE 101 mmol/L (97-110); CREATININE 3.86 mg/dl (0.61-1.24); Estimated GFR 17 mL/min (>60); GLUCOSE 84 mg/dl (70-220); POTASSIUM 4.6 mmol/L (3.5-5.1); SODIUM 135 mmol/L (135-144)
[2018-06-29] MEDS: OSELTAMIVIR 30 MG CAP PO (06:47)
[2018-06-29] MEDS: INSULIN ASPART [NOVOLOG] 3 ML PEN SC ×4 (08:00→17:46)
[2018-06-29] MEDS: SEVELAMER CARBONATE 800 MG TABLET PO ×3 (08:51→17:33)
[2018-06-29] MEDS: CHOLECALCIFEROL 1,000 UNIT TAB PO (08:53)
[2018-06-29] MEDS: SPIRONOLACTONE 25 MG TAB PO (08:53)
[2018-06-29] MEDS: ISOSORBIDE MONONITRATE(SR)30 MG TAB PO (08:53)
[2018-06-29] MEDS: ISOSORBIDE DINITRATE 20 MG TAB PO ×3 (08:53→20:21)
[2018-06-29] MEDS: FAMOTIDINE 20 MG TAB PO ×2 (08:53→20:21)
[2018-06-29] MEDS: APIXABAN 5 MG TABLET PO ×2 (08:54→20:20)
[2018-06-29 10:33] LABS: ADD MAN DIFF? NO
[2018-06-29 10:37] LABS: ABNORMAL IP MESSAGE 1; BASOPHILS % 0.3 % (0.0-2.0); EOSINOPHILS # 0.1 10^3/ul (0.0-0.5); HEMATOCRIT 21.9 % (42.0-52.0); LYMPHOCYTES # 0.5 10^3/ul (0.8-2.9); MEAN CORPUSCULAR HEMOGLOBIN 26.5 pg (29.0-33.0); MEAN CORPUSCULAR HGB CONC 31.5 g/dl (32.0-37.0); MEAN CORPUSCULAR VOLUME 84.2 fl (82.0-101.0); MONOCYTE # 0.7 10^3/ul (0.3-0.9); MONOCYTES % 9.8 % (0.0-11.0); NEUTROPHIL # 5.3 10^3/ul (1.6-7.5); NEUTROPHILS % 79.4 % (39.0-77.0); PLATELET COUNT 161 10^3/UL (140-415); POSITIVE DIFF @See below; RED CELL DISTRIBUTION WIDTH 13.1 % (11.5-14.5)
[2018-06-29 10:37] LABS: WHITE BLOOD COUNT 6.6 10^3/ul (4.8-10.8)
[2018-06-29 10:43] LABS: HEMOGLOBIN 6.9 g/dl (14.0-18.0)
[2018-06-29] MEDS: hydrALAzine 20 MG INJ IV ×2 (10:54→18:09)
[2018-06-29 11:03] LABS: ANION GAP 11 (5-13); BLOOD UREA NITROGEN 87 mg/dl (7-20); CALCIUM 8.8 mg/dl (8.4-10.2); CARBON DIOXIDE 23 mmol/L (21-31); CHLORIDE 101 mmol/L (97-110); CREATININE 3.79 mg/dl (0.61-1.24); Estimated GFR 17 mL/min (>60); GLUCOSE 77 mg/dl (70-220); POTASSIUM 4.7 mmol/L (3.5-5.1); SODIUM 135 mmol/L (135-144)
[2018-06-29] MEDS: DOCUSATE SODIUM 100 MG CAP PO (12:14)
[2018-06-29 12:51] LABS: ANISOCYTOSIS 3+ (0-0); BAND NEUTROPHILS #M 0.1 10^3/ul (0.0-0.6); BAND NEUTROPHILS % (M) 2 % (0-4); EOSINOPHILS % (M) 3 % (0-7); LYMPHOCYTES #M 0.5 10^3/ul (0.8-2.9); LYMPHOCYTES % (M) 9 % (15-51); MICROCYTOSIS 3+ (0-0); MONOCYTE #M 0.4 10^3/ul (0.3-0.9); MONOCYTES % (M) 7 % (0-11); PLATELET ESTIMATE NORMAL; POLYCHROMASIA 2+ (0-0); SEG NEUT #M 5.2 10^3/ul (1.6-7.5); SEGMENTED NEUTROPHILS (M) % 79 % (39-77)
[2018-06-29 13:59] LABS: IMMEDIATE SPIN CROSSMATCH 1 4
[2018-06-29] MEDS ORDERED: VANCOMYCIN IV PER PHARMACY XX (15:30)
[2018-06-29] MEDS: OSELTAMIVIR 75 MG CAP PO (16:11)
[2018-06-29] MEDS: NIFEdipine (XL) 30 MG TAB PO ×2 (17:04→20:23)
[2018-06-29] MEDS: FUROSEMIDE 20 MG INJ IV (17:05)
[2018-06-29] MEDS: BUMETANIDE 1 MG INJ IV (17:33)
[2018-06-29] MEDS: POLYETHYLENE GLYCOL 17 GM PACKET PO (19:00)
[2018-06-29] MEDS: CEFEPIME 1GM/50 ML (PMX) 50 ML IVPB (19:02)
[2018-06-29] MEDS: VANCOMYCIN HCL 2 GM in SOD CHLORIDE 0.9% 500 ML IVPB (20:18)
[2018-06-29] MEDS: ATORVASTATIN 80 MG TAB PO (20:20)
[2018-06-29] MEDS: EZETIMIBE 10 MG TAB PO (20:21)
[2018-06-29] MEDS: DOXAZOSIN 2 MG TAB PO (20:22)
[2018-06-29] MEDS: LOSARTAN 25 MG TAB PO (20:22)
[2018-06-29] MEDS: INSULIN GLARGINE [LANTus] (100 UNITS/ML) SYG SC (20:40)
[2018-06-29] MEDS: ONDANSETRON 4 MG INJ IV (21:16)
[2018-06-30] MEDS: DOCUSATE SODIUM 100 MG CAP PO ×3 (00:35→23:39)
[2018-06-30] MEDS: ACETAMINOPHEN 325 MG TAB PO ×3 (02:29→17:59)
[2018-06-30 05:39] LABS: ADD MAN DIFF? NO
[2018-06-30 05:52] LABS: WHITE BLOOD COUNT 8.4 10^3/ul (4.8-10.8)
[2018-06-30 05:52] LABS: ABNORMAL IP MESSAGE 1; BASOPHILS % 0.4 % (0.0-2.0); EOSINOPHILS # 0.1 10^3/ul (0.0-0.5); EOSINOPHILS % 1.1 % (0.0-7.0); HEMATOCRIT 24.8 % (42.0-52.0); LYMPHOCYTES # 0.5 10^3/ul (0.8-2.9); MEAN CORPUSCULAR HEMOGLOBIN 27.6 pg (29.0-33.0); MEAN CORPUSCULAR HGB CONC 32.3 g/dl (32.0-37.0); MEAN CORPUSCULAR VOLUME 85.5 fl (82.0-101.0); MEAN PLATELET VOLUME 11.5 fl (7.4-10.4); MONOCYTES % 12.2 % (0.0-11.0); NEUTROPHIL # 6.7 10^3/ul (1.6-7.5); NEUTROPHILS % 79.9 % (39.0-77.0); PLATELET COUNT 157 10^3/UL (140-415); POSITIVE DIFF @See below
[2018-06-30] MEDS: BUMETANIDE 1 MG INJ IV ×2 (06:19→17:21)
[2018-06-30 06:35] LABS: ANION GAP 11 (5-13); BLOOD UREA NITROGEN 87 mg/dl (7-20); CALCIUM 8.6 mg/dl (8.4-10.2); CARBON DIOXIDE 23 mmol/L (21-31); CHLORIDE 101 mmol/L (97-110); CREATININE 4.42 mg/dl (0.61-1.24); Estimated GFR 15 mL/min (>60); GLUCOSE 109 mg/dl (70-220); POTASSIUM 4.5 mmol/L (3.5-5.1); SODIUM 135 mmol/L (135-144)
[2018-06-30] MEDS: OSELTAMIVIR 75 MG CAP PO (08:30)
[2018-06-30] MEDS: ISOSORBIDE DINITRATE 20 MG TAB PO ×3 (08:31→20:18)
[2018-06-30] MEDS: SPIRONOLACTONE 25 MG TAB PO (08:31)
[2018-06-30] MEDS: ISOSORBIDE MONONITRATE(SR)30 MG TAB PO (08:31)
[2018-06-30] MEDS: NIFEdipine (XL) 30 MG TAB PO ×2 (08:31→20:17)
[2018-06-30] MEDS: SEVELAMER CARBONATE 800 MG TABLET PO ×3 (08:31→17:21)
[2018-06-30] MEDS: APIXABAN 5 MG TABLET PO ×2 (08:32→20:19)
[2018-06-30] MEDS: POLYETHYLENE GLYCOL 17 GM PACKET PO (08:33)
[2018-06-30] MEDS: CHOLECALCIFEROL 1,000 UNIT TAB PO (08:33)
[2018-06-30] MEDS: FAMOTIDINE 20 MG TAB PO ×2 (08:33→20:19)
[2018-06-30] MEDS: INSULIN ASPART [NOVOLOG] 3 ML PEN SC ×3 (08:59→17:38)
[2018-06-30] MEDS: ALBUMIN HUMAN 25% 100 ML IV ×2 (13:44→20:25)
[2018-06-30] MEDS: CEFEPIME 1GM/50 ML (PMX) 50 ML IVPB (15:15)
[2018-06-30] MEDS: EPOETIN 3000 UNITS/ML (NON ESRD/NON ONCOLOGY) SC (17:29)
[2018-06-30 19:44] LABS: OCCULT BLOOD STOOL NEGATIVE (NEGATIVE)
[2018-06-30] MEDS: DOXAZOSIN 2 MG TAB PO (20:18)
[2018-06-30] MEDS: LOSARTAN 25 MG TAB PO (20:19)
[2018-06-30] MEDS: ATORVASTATIN 80 MG TAB PO (20:19)
[2018-06-30] MEDS: EZETIMIBE 10 MG TAB PO (20:19)
[2018-06-30] MEDS: INSULIN GLARGINE [LANTus] (100 UNITS/ML) SYG SC (20:20)
[2018-06-30] MEDS: morphine 4 MG/ML VIAL IV (20:21)
[2018-07-01] MEDS: morphine 4 MG/ML VIAL IV ×2 (03:51→20:56)
[2018-07-01] MEDS: ALBUMIN HUMAN 25% 100 ML IV (05:03)
[2018-07-01] MEDS: BUMETANIDE 1 MG INJ IV (05:05)
[2018-07-01 05:38] LABS: ADD MAN DIFF? NO
[2018-07-01 05:40] LABS: WHITE BLOOD COUNT 8.3 10^3/ul (4.8-10.8)
[2018-07-01 05:40] LABS: BASOPHILS % 0.2 % (0.0-2.0); EOSINOPHILS # 0.3 10^3/ul (0.0-0.5); EOSINOPHILS % 3.9 % (0.0-7.0); HEMOGLOBIN 7.4 g/dl (14.0-18.0); LYMPHOCYTES # 0.7 10^3/ul (0.8-2.9); LYMPHOCYTES % 8.2 % (15.0-51.0); MEAN CORPUSCULAR HEMOGLOBIN 27.5 pg (29.0-33.0); MEAN CORPUSCULAR HGB CONC 32.2 g/dl (32.0-37.0); MEAN CORPUSCULAR VOLUME 85.5 fl (82.0-101.0); MEAN PLATELET VOLUME 11.2 fl (7.4-10.4); MONOCYTE # 1.2 10^3/ul (0.3-0.9); MONOCYTES % 14.9 % (0.0-11.0); NEUTROPHILS % 72.4 % (39.0-77.0); PLATELET COUNT 130 10^3/UL (140-415); POSITIVE DIFF @See below; RED BLOOD COUNT 2.69 10^6/ul (4.70-6.10); RED CELL DISTRIBUTION WIDTH 13.2 % (11.5-14.5)
[2018-07-01 06:08] LABS: VANCOMYCIN,RANDOM 14.8 ug/ml
[2018-07-01 06:11] LABS: ANION GAP 14 (5-13); BLOOD UREA NITROGEN 90 mg/dl (7-20); CALCIUM 8.9 mg/dl (8.4-10.2); CARBON DIOXIDE 22 mmol/L (21-31); CHLORIDE 102 mmol/L (97-110); CREATININE 4.88 mg/dl (0.61-1.24); Estimated GFR 13 mL/min (>60); GLUCOSE 98 mg/dl (70-220); MAGNESIUM 2.3 mg/dl (1.7-2.5); POTASSIUM 4.4 mmol/L (3.5-5.1); SODIUM 138 mmol/L (135-144)
[2018-07-01] MEDS ORDERED: PROPOFOL 200 MG INJ (07:00)
[2018-07-01] MEDS: INSULIN ASPART [NOVOLOG] 3 ML PEN SC ×3 (07:36→17:24)
[2018-07-01] MEDS: SEVELAMER CARBONATE 800 MG TABLET PO ×3 (07:36→17:21)
[2018-07-01] MEDS: hydrALAzine 20 MG INJ IV (08:07)
[2018-07-01] MEDS: ACETAMINOPHEN 325 MG TAB PO ×2 (08:07→14:30)
[2018-07-01] MEDS: ISOSORBIDE MONONITRATE(SR)30 MG TAB PO (09:00)
[2018-07-01] MEDS ORDERED: MIDAZOLAM 1 MG/ML 2 ML INJ (09:42)
[2018-07-01] MEDS ORDERED: FENTAnyl 50 MCG/ML VIAL (09:42)
[2018-07-01] MEDS ORDERED: hydrALAzine 20 MG INJ IV (10:30)
[2018-07-01] MEDS ORDERED: LABETALOL HCL 20MG INJ IV (10:30)
[2018-07-01] MEDS ORDERED: ONDANSETRON 4 MG INJ IV (10:30)
[2018-07-01] MEDS: FAMOTIDINE 20 MG TAB PO ×2 (12:00→20:57)
[2018-07-01] MEDS: ISOSORBIDE DINITRATE 20 MG TAB PO ×4 (12:00→20:57)
[2018-07-01] MEDS: CHOLECALCIFEROL 1,000 UNIT TAB PO (12:00)
[2018-07-01] MEDS: POLYETHYLENE GLYCOL 17 GM PACKET PO (12:00)
[2018-07-01] MEDS: OSELTAMIVIR 75 MG CAP PO ×2 (13:30→14:30)
[2018-07-01] MEDS: APIXABAN 5 MG TABLET PO ×3 (13:35→20:58)
[2018-07-01] MEDS: DOCUSATE SODIUM 100 MG CAP PO ×3 (13:35→23:34)
[2018-07-01] MEDS: NIFEdipine (XL) 30 MG TAB PO ×3 (13:35→20:58)
[2018-07-01] MEDS: CLINDAMYCIN 600 MG/D5W (PMX) 50 ML IVPB ×2 (14:44→21:01)
[2018-07-01] MEDS: CEFEPIME 1GM/50 ML (PMX) 50 ML IVPB (15:43)
[2018-07-01] MEDS: BUMETANIDE 1 MG TAB PO (17:21)
[2018-07-01] MEDS: DOXAZOSIN 2 MG TAB PO (20:57)
[2018-07-01] MEDS: ATORVASTATIN 80 MG TAB PO (20:57)
[2018-07-01] MEDS: EZETIMIBE 10 MG TAB PO (20:57)
[2018-07-01] MEDS: INSULIN GLARGINE [LANTus] (100 UNITS/ML) SYG SC (21:11)
[2018-07-02] MEDS: hydrALAzine 20 MG INJ IV (00:18)
[2018-07-02] MEDS: ACETAMINOPHEN 325 MG TAB PO ×2 (03:48→10:02)
[2018-07-02 05:03] LABS: ADD MAN DIFF? NO
[2018-07-02] MEDS: BUMETANIDE 1 MG TAB PO (05:05)
[2018-07-02] MEDS: CLINDAMYCIN 600 MG/D5W (PMX) 50 ML IVPB ×3 (05:06→22:47)
[2018-07-02 05:14] LABS: ABNORMAL IP MESSAGE 1; BASOPHILS % 0.2 % (0.0-2.0); EOSINOPHILS # 0.2 10^3/ul (0.0-0.5); HEMATOCRIT 20.6 % (42.0-52.0); LYMPHOCYTES # 0.7 10^3/ul (0.8-2.9); LYMPHOCYTES % 7.9 % (15.0-51.0); MEAN CORPUSCULAR HEMOGLOBIN 27.5 pg (29.0-33.0); MEAN CORPUSCULAR HGB CONC 32.5 g/dl (32.0-37.0); MEAN CORPUSCULAR VOLUME 84.4 fl (82.0-101.0); MEAN PLATELET VOLUME 11.9 fl (7.4-10.4); MONOCYTE # 1.5 10^3/ul (0.3-0.9); MONOCYTES % 18.1 % (0.0-11.0); NEUTROPHILS % 71.3 % (39.0-77.0); PLATELET COUNT 142 10^3/UL (140-415); POSITIVE DIFF @See below; RED BLOOD COUNT 2.44 10^6/ul (4.70-6.10); RED CELL DISTRIBUTION WIDTH 13.2 % (11.5-14.5)
[2018-07-02 05:14] LABS: WHITE BLOOD COUNT 8.4 10^3/ul (4.8-10.8)
[2018-07-02 05:31] LABS: CREATINE KINASE 346 IU/L (23-200)
[2018-07-02 05:34] LABS: HEMOGLOBIN 6.7 g/dl (14.0-18.0)
[2018-07-02 05:38] LABS: ANION GAP 16 (5-13); BLOOD UREA NITROGEN 91 mg/dl (7-20); CALCIUM 8.5 mg/dl (8.4-10.2); CARBON DIOXIDE 21 mmol/L (21-31); CHLORIDE 99 mmol/L (97-110); CREATININE 4.74 mg/dl (0.61-1.24); Estimated GFR 13 mL/min (>60); GLUCOSE 171 mg/dl (70-220); SODIUM 136 mmol/L (135-144)
[2018-07-02 05:45] LABS: FREE T3 2.34 pg/ml (2.77-5.27)
[2018-07-02] MEDS: SEVELAMER CARBONATE 800 MG TABLET PO ×3 (08:40→17:43)
[2018-07-02] MEDS: ISOSORBIDE DINITRATE 20 MG TAB PO ×3 (08:41→20:52)
[2018-07-02] MEDS: NIFEdipine (XL) 30 MG TAB PO ×2 (08:41→20:52)
[2018-07-02] MEDS: ISOSORBIDE MONONITRATE(SR)30 MG TAB PO (08:42)
[2018-07-02] MEDS: FAMOTIDINE 20 MG TAB PO ×2 (08:42→20:52)
[2018-07-02] MEDS: CHOLECALCIFEROL 1,000 UNIT TAB PO (08:42)
[2018-07-02] MEDS: OSELTAMIVIR 75 MG CAP PO (08:42)
[2018-07-02] MEDS: POLYETHYLENE GLYCOL 17 GM PACKET PO ×2 (08:43→18:30)
[2018-07-02] MEDS: APIXABAN 5 MG TABLET PO ×2 (08:43→20:51)
[2018-07-02 08:53] LABS: FREE T4 (FREE THYROXINE) 1.19 ng/dl (0.64-1.79)
[2018-07-02] MEDS: INSULIN ASPART [NOVOLOG] 3 ML PEN SC ×3 (09:01→17:48)
[2018-07-02] MEDS: SOD CHLORIDE 0.9% 250 ML IV* (09:55)
[2018-07-02] MEDS: DOCUSATE SODIUM 100 MG CAP PO ×2 (12:05→23:16)
[2018-07-02] MEDS: FUROSEMIDE 20 MG INJ IV (16:09)
[2018-07-02] MEDS: CEFEPIME 1GM/50 ML (PMX) 50 ML IVPB (16:13)
[2018-07-02 16:45] LABS: IMMEDIATE SPIN CROSSMATCH 1 2
[2018-07-02] MEDS: EPOETIN 3000 UNITS/ML (NON ESRD/NON ONCOLOGY) SC (18:26)
[2018-07-02] MEDS: INSULIN GLARGINE [LANTus] (100 UNITS/ML) SYG SC (20:46)
[2018-07-02] MEDS: DOXAZOSIN 2 MG TAB PO (20:51)
[2018-07-02] MEDS: ATORVASTATIN 80 MG TAB PO (20:52)
[2018-07-02] MEDS: EZETIMIBE 10 MG TAB PO (20:53)
[2018-07-02] MEDS: morphine 4 MG/ML VIAL IV (21:03)
[2018-07-02] MEDS: ZOLPIDEM 5 MG TAB PO (22:47)
[2018-07-02] MEDS: MAGNESIUM HYDROXIDE 30ML CUP PO (22:48)
[2018-07-03] MEDS: DOCUSATE SODIUM 100 MG CAP PO ×3 (00:24→21:42)
[2018-07-03 05:59] LABS: ADD MAN DIFF? NO
[2018-07-03] MEDS: CLINDAMYCIN 600 MG/D5W (PMX) 50 ML IVPB ×3 (05:59→21:41)
[2018-07-03 06:09] LABS: BASOPHILS % 0.4 % (0.0-2.0); EOSINOPHILS # 0.5 10^3/ul (0.0-0.5); EOSINOPHILS % 5.6 % (0.0-7.0); HEMATOCRIT 26.8 % (42.0-52.0); HEMOGLOBIN 8.6 g/dl (14.0-18.0); LYMPHOCYTES # 0.6 10^3/ul (0.8-2.9); LYMPHOCYTES % 7.6 % (15.0-51.0); MEAN CORPUSCULAR HEMOGLOBIN 27.6 pg (29.0-33.0); MEAN CORPUSCULAR HGB CONC 32.1 g/dl (32.0-37.0); MEAN CORPUSCULAR VOLUME 85.9 fl (82.0-101.0); MEAN PLATELET VOLUME 11.5 fl (7.4-10.4); MONOCYTE # 1.4 10^3/ul (0.3-0.9); MONOCYTES % 16.7 % (0.0-11.0); NEUTROPHIL # 5.7 10^3/ul (1.6-7.5); NEUTROPHILS % 69.3 % (39.0-77.0); PLATELET COUNT 164 10^3/UL (140-415); RED BLOOD COUNT 3.12 10^6/ul (4.70-6.10); RED CELL DISTRIBUTION WIDTH 13.2 % (11.5-14.5)
[2018-07-03 06:09] LABS: WHITE BLOOD COUNT 8.2 10^3/ul (4.8-10.8)
[2018-07-03 06:47] LABS: ANION GAP 17 (5-13); BLOOD UREA NITROGEN 100 mg/dl (7-20); CARBON DIOXIDE 23 mmol/L (21-31); CHLORIDE 98 mmol/L (97-110); CREATININE 5.42 mg/dl (0.61-1.24); Estimated GFR 12 mL/min (>60); GLUCOSE 143 mg/dl (70-220); POTASSIUM 4.3 mmol/L (3.5-5.1); SODIUM 138 mmol/L (135-144)
[2018-07-03] MEDS: SEVELAMER CARBONATE 800 MG TABLET PO ×3 (07:51→17:27)
[2018-07-03] MEDS: INSULIN ASPART [NOVOLOG] 3 ML PEN SC ×3 (07:57→17:31)
[2018-07-03] MEDS: ISOSORBIDE MONONITRATE(SR)30 MG TAB PO (08:54)
[2018-07-03] MEDS: NIFEdipine (XL) 30 MG TAB PO ×2 (08:54→21:43)
[2018-07-03] MEDS: ISOSORBIDE DINITRATE 20 MG TAB PO ×3 (08:55→21:42)
[2018-07-03] MEDS: POLYETHYLENE GLYCOL 17 GM PACKET PO (08:55)
[2018-07-03] MEDS: FAMOTIDINE 20 MG TAB PO ×2 (08:55→21:42)
[2018-07-03] MEDS: OSELTAMIVIR 75 MG CAP PO (08:55)
[2018-07-03] MEDS: APIXABAN 5 MG TABLET PO ×2 (08:55→21:43)
[2018-07-03] MEDS: CHOLECALCIFEROL 1,000 UNIT TAB PO (08:55)
[2018-07-03] MEDS: morphine 4 MG/ML VIAL IV ×2 (10:00→21:59)
[2018-07-03 13:41] LABS: OCCULT BLOOD STOOL NEGATIVE (NEGATIVE)
[2018-07-03] MEDS: CEFEPIME 1GM/50 ML (PMX) 50 ML IVPB (16:00)
[2018-07-03] MEDS ORDERED: traMADol 50 MG TAB PO (16:30)
[2018-07-03] MEDS: DOXAZOSIN 2 MG TAB PO (21:42)
[2018-07-03] MEDS: ATORVASTATIN 80 MG TAB PO (21:42)
[2018-07-03] MEDS: EZETIMIBE 10 MG TAB PO (21:43)
[2018-07-03] MEDS: MAGNESIUM HYDROXIDE 30ML CUP PO (21:59)
[2018-07-03] MEDS: INSULIN GLARGINE [LANTus] (100 UNITS/ML) SYG SC (22:24)
[2018-07-04 06:15] LABS: ADD MAN DIFF? NO
[2018-07-04 06:17] LABS: BASOPHILS % 0.3 % (0.0-2.0); EOSINOPHILS # 0.5 10^3/ul (0.0-0.5); EOSINOPHILS % 6.8 % (0.0-7.0); HEMOGLOBIN 8.1 g/dl (14.0-18.0); LYMPHOCYTES # 0.7 10^3/ul (0.8-2.9); LYMPHOCYTES % 10.5 % (15.0-51.0); MEAN CORPUSCULAR HEMOGLOBIN 27.6 pg (29.0-33.0); MEAN CORPUSCULAR HGB CONC 32.4 g/dl (32.0-37.0); MEAN CORPUSCULAR VOLUME 85.3 fl (82.0-101.0); MEAN PLATELET VOLUME 11.6 fl (7.4-10.4); MONOCYTE # 1.2 10^3/ul (0.3-0.9); MONOCYTES % 17.6 % (0.0-11.0); NEUTROPHIL # 4.2 10^3/ul (1.6-7.5); NEUTROPHILS % 64.2 % (39.0-77.0); PLATELET COUNT 164 10^3/UL (140-415); RED BLOOD COUNT 2.93 10^6/ul (4.70-6.10); RED CELL DISTRIBUTION WIDTH 13.4 % (11.5-14.5)
[2018-07-04 06:17] LABS: WHITE BLOOD COUNT 6.6 10^3/ul (4.8-10.8)
[2018-07-04] MEDS: FLUTICASONE 0.05% 16 GM NAS SPRAY NASAL ×3 (06:27→21:25)
[2018-07-04] MEDS: CLINDAMYCIN 600 MG/D5W (PMX) 50 ML IVPB ×3 (06:27→21:33)
[2018-07-04 06:30] LABS: MAGNESIUM 2.7 mg/dl (1.7-2.5)
[2018-07-04 06:35] LABS: ALANINE AMINOTRANSFERASE 29 IU/L (13-69); ALBUMIN 3.9 g/dl (3.3-4.9); ALBUMIN/GLOBULIN RATIO 1.44; ALKALINE PHOSPHATASE 85 IU/L (42-121); ANION GAP 16 (5-13); ASPARTATE AMINO TRANSFERASE 33 IU/L (15-46); BILIRUBIN,INDIRECT 0.6 mg/dl (0-1.1); BILIRUBIN,TOTAL 0.6 mg/dl (0.2-1.3); BLOOD UREA NITROGEN 105 mg/dl (7-20); CALCIUM 8.8 mg/dl (8.4-10.2); CARBON DIOXIDE 22 mmol/L (21-31); CHLORIDE 98 mmol/L (97-110); CREATININE 5.83 mg/dl (0.61-1.24); Estimated GFR 11 mL/min (>60); GLUCOSE 91 mg/dl (70-220); POTASSIUM 4.2 mmol/L (3.5-5.1); SODIUM 136 mmol/L (135-144); TOTAL PROTEIN 6.6 g/dl (6.1-8.1)
[2018-07-04 06:37] LABS: INR 1.22; PROTIME 15.5 Sec (11.9-14.9); PT RATIO 1.2
[2018-07-04 07:09] LABS: PARTIAL THROMBOPLASTIN TIME 90.1 Sec (23.0-35.0)
[2018-07-04] MEDS: ISOSORBIDE DINITRATE 20 MG TAB PO (08:00)
[2018-07-04] MEDS: DOCUSATE SODIUM 100 MG CAP PO ×2 (08:00→21:12)
[2018-07-04] MEDS: FAMOTIDINE 20 MG TAB PO ×2 (08:00→21:13)
[2018-07-04] MEDS: ISOSORBIDE MONONITRATE(SR)30 MG TAB PO (08:00)
[2018-07-04] MEDS: SEVELAMER CARBONATE 800 MG TABLET PO ×3 (08:00→17:07)
[2018-07-04] MEDS: NIFEdipine (XL) 30 MG TAB PO ×2 (08:00→21:13)
[2018-07-04] MEDS: APIXABAN 5 MG TABLET PO ×2 (08:00→21:12)
[2018-07-04] MEDS: POLYETHYLENE GLYCOL 17 GM PACKET PO (08:01)
[2018-07-04] MEDS: CHOLECALCIFEROL 1,000 UNIT TAB PO (08:01)
[2018-07-04] MEDS: INSULIN ASPART [NOVOLOG] 3 ML PEN SC ×3 (08:13→17:14)
[2018-07-04] MEDS: CEFEPIME 1GM/50 ML (PMX) 50 ML IVPB (15:19)
[2018-07-04] MEDS: EPOETIN 3000 UNITS/ML (NON ESRD/NON ONCOLOGY) SC (17:07)
[2018-07-04] MEDS: ATORVASTATIN 80 MG TAB PO (21:12)
[2018-07-04] MEDS: DOXAZOSIN 2 MG TAB PO (21:12)
[2018-07-04] MEDS: EZETIMIBE 10 MG TAB PO (21:13)
[2018-07-04] MEDS: MAGNESIUM HYDROXIDE 30ML CUP PO (21:32)
[2018-07-04] MEDS: morphine LIQ (10 MG/5 ML) CUP PO (21:33)
[2018-07-04] MEDS: INSULIN GLARGINE [LANTus] (100 UNITS/ML) SYG SC (22:39)
[2018-07-05] MEDS: CLINDAMYCIN 600 MG/D5W (PMX) 50 ML IVPB ×3 (05:40→22:16)
[2018-07-05] MEDS: FLUTICASONE 0.05% 16 GM NAS SPRAY NASAL ×2 (08:03→22:22)
[2018-07-05] MEDS: APIXABAN 5 MG TABLET PO ×2 (08:05→22:29)
[2018-07-05] MEDS: SEVELAMER CARBONATE 800 MG TABLET PO ×3 (08:05→17:08)
[2018-07-05] MEDS: CHOLECALCIFEROL 1,000 UNIT TAB PO (08:05)
[2018-07-05] MEDS: DOCUSATE SODIUM 100 MG CAP PO ×2 (08:05→22:15)
[2018-07-05] MEDS: POLYETHYLENE GLYCOL 17 GM PACKET PO (08:06)
[2018-07-05] MEDS: ISOSORBIDE MONONITRATE(SR)30 MG TAB PO (08:06)
[2018-07-05] MEDS: NIFEdipine (XL) 30 MG TAB PO ×2 (08:06→22:16)
[2018-07-05] MEDS: INSULIN ASPART [NOVOLOG] 3 ML PEN SC ×3 (08:16→17:11)
[2018-07-05 10:46] LABS: ANION GAP 16 (5-13); BLOOD UREA NITROGEN 106 mg/dl (7-20); CALCIUM 9.2 mg/dl (8.4-10.2); CARBON DIOXIDE 22 mmol/L (21-31); CHLORIDE 99 mmol/L (97-110); CREATININE 5.45 mg/dl (0.61-1.24); Estimated GFR 11 mL/min (>60); GLUCOSE 58 mg/dl (70-220); POTASSIUM 4.3 mmol/L (3.5-5.1); SODIUM 137 mmol/L (135-144)
[2018-07-05] MEDS: CEFEPIME 1GM/50 ML (PMX) 50 ML IVPB (15:55)
[2018-07-05] MEDS: DOXAZOSIN 2 MG TAB PO (22:15)
[2018-07-05] MEDS: ATORVASTATIN 80 MG TAB PO (22:15)
[2018-07-05] MEDS: FAMOTIDINE 20 MG TAB PO (22:15)
[2018-07-05] MEDS: EZETIMIBE 10 MG TAB PO (22:16)
[2018-07-05] MEDS: INSULIN GLARGINE [LANTus] (100 UNITS/ML) SYG SC (22:28)
[2018-07-05] MEDS: MAGNESIUM HYDROXIDE 30ML CUP PO (22:30)
[2018-07-05] MEDS: morphine 4 MG/ML VIAL IV (22:30)
[2018-07-06] MEDS: ACCU-CHEK XX ×4 (02:00→17:31)
[2018-07-06 05:18] LABS: ADD MAN DIFF? NO
[2018-07-06 05:27] LABS: WHITE BLOOD COUNT 6.5 10^3/ul (4.8-10.8)
[2018-07-06 05:27] LABS: BASOPHILS % 0.5 % (0.0-2.0); EOSINOPHILS # 0.5 10^3/ul (0.0-0.5); EOSINOPHILS % 8.1 % (0.0-7.0); HEMATOCRIT 26.7 % (42.0-52.0); HEMOGLOBIN 8.5 g/dl (14.0-18.0); LYMPHOCYTES # 0.8 10^3/ul (0.8-2.9); LYMPHOCYTES % 12.4 % (15.0-51.0); MEAN CORPUSCULAR HEMOGLOBIN 27.2 pg (29.0-33.0); MEAN CORPUSCULAR HGB CONC 31.8 g/dl (32.0-37.0); MEAN CORPUSCULAR VOLUME 85.6 fl (82.0-101.0); MEAN PLATELET VOLUME 10.6 fl (7.4-10.4); MONOCYTES % 15.1 % (0.0-11.0); NEUTROPHIL # 4.1 10^3/ul (1.6-7.5); PLATELET COUNT 224 10^3/UL (140-415); RED BLOOD COUNT 3.12 10^6/ul (4.70-6.10); RED CELL DISTRIBUTION WIDTH 13.3 % (11.5-14.5)
[2018-07-06 05:44] LABS: INR 1.22; PROTIME 15.5 Sec (11.9-14.9); PT RATIO 1.2
[2018-07-06 05:51] LABS: ALANINE AMINOTRANSFERASE 31 IU/L (13-69); ALBUMIN 3.7 g/dl (3.3-4.9); ALBUMIN/GLOBULIN RATIO 1.27; ALKALINE PHOSPHATASE 89 IU/L (42-121); ANION GAP 18 (5-13); ASPARTATE AMINO TRANSFERASE 30 IU/L (15-46); BILIRUBIN,INDIRECT 0.4 mg/dl (0-1.1); BILIRUBIN,TOTAL 0.4 mg/dl (0.2-1.3); BLOOD UREA NITROGEN 103 mg/dl (7-20); CALCIUM 8.7 mg/dl (8.4-10.2); CARBON DIOXIDE 23 mmol/L (21-31); CHLORIDE 100 mmol/L (97-110); CREATININE 5.17 mg/dl (0.61-1.24); Estimated GFR 12 mL/min (>60); GLUCOSE 117 mg/dl (70-220); POTASSIUM 4.2 mmol/L (3.5-5.1); SODIUM 141 mmol/L (135-144); TOTAL PROTEIN 6.6 g/dl (6.1-8.1)
[2018-07-06 05:57] LABS: MAGNESIUM 3.7 mg/dl (1.7-2.5)
[2018-07-06 07:03] LABS: PARTIAL THROMBOPLASTIN TIME 87.5 Sec (23.0-35.0)
[2018-07-06] MEDS: SEVELAMER CARBONATE 800 MG TABLET PO ×3 (07:51→17:31)
[2018-07-06] MEDS: CLINDAMYCIN 600 MG/D5W (PMX) 50 ML IVPB ×3 (07:51→20:14)
[2018-07-06] MEDS: INSULIN ASPART [NOVOLOG] 3 ML PEN SC ×3 (08:13→17:39)
[2018-07-06] MEDS: CHOLECALCIFEROL 1,000 UNIT TAB PO (08:15)
[2018-07-06] MEDS: DOCUSATE SODIUM 100 MG CAP PO ×2 (08:15→20:09)
[2018-07-06] MEDS: ISOSORBIDE MONONITRATE(SR)30 MG TAB PO (08:16)
[2018-07-06] MEDS: APIXABAN 5 MG TABLET PO ×2 (08:16→20:09)
[2018-07-06] MEDS: NIFEdipine (XL) 30 MG TAB PO (08:17)
[2018-07-06] MEDS: POLYETHYLENE GLYCOL 17 GM PACKET PO (08:17)
[2018-07-06] MEDS: FLUTICASONE 0.05% 16 GM NAS SPRAY NASAL ×2 (08:18→20:16)
[2018-07-06] MEDS: CEFEPIME 1GM/50 ML (PMX) 50 ML IVPB (16:14)
[2018-07-06] MEDS: DOXAZOSIN 2 MG TAB PO (20:07)
[2018-07-06] MEDS: NIFEdipine (XL) 60 MG TAB PO (20:07)
[2018-07-06] MEDS: ATORVASTATIN 80 MG TAB PO (20:07)
[2018-07-06] MEDS: EZETIMIBE 10 MG TAB PO (20:07)
[2018-07-06] MEDS: FAMOTIDINE 20 MG TAB PO (20:08)
[2018-07-06] MEDS: INSULIN GLARGINE [LANTus] (100 UNITS/ML) SYG SC (20:11)
[2018-07-07] MEDS: ACCU-CHEK XX ×5 (02:00→22:40)
[2018-07-07] MEDS: CLINDAMYCIN 600 MG/D5W (PMX) 50 ML IVPB ×3 (05:15→20:50)
[2018-07-07 06:41] LABS: ANION GAP 13 (5-13); BLOOD UREA NITROGEN 100 mg/dl (7-20); CALCIUM 8.8 mg/dl (8.4-10.2); CARBON DIOXIDE 24 mmol/L (21-31); CHLORIDE 103 mmol/L (97-110); CREATININE 4.46 mg/dl (0.61-1.24); Estimated GFR 14 mL/min (>60); GLUCOSE 92 mg/dl (70-220); POTASSIUM 4.1 mmol/L (3.5-5.1); SODIUM 140 mmol/L (135-144)
[2018-07-07] MEDS: INSULIN ASPART [NOVOLOG] 3 ML PEN SC ×3 (07:46→17:16)
[2018-07-07] MEDS: APIXABAN 5 MG TABLET PO ×2 (08:06→20:44)
[2018-07-07] MEDS: SEVELAMER CARBONATE 800 MG TABLET PO ×3 (08:06→17:13)
[2018-07-07] MEDS: CHOLECALCIFEROL 1,000 UNIT TAB PO (08:07)
[2018-07-07] MEDS: NIFEdipine (XL) 60 MG TAB PO ×2 (08:07→20:43)
[2018-07-07] MEDS: ISOSORBIDE MONONITRATE(SR)30 MG TAB PO (08:07)
[2018-07-07] MEDS: POLYETHYLENE GLYCOL 17 GM PACKET PO (08:08)
[2018-07-07] MEDS: DOCUSATE SODIUM 100 MG CAP PO ×2 (08:08→20:43)
[2018-07-07] MEDS: FLUTICASONE 0.05% 16 GM NAS SPRAY NASAL ×2 (08:09→20:51)
[2018-07-07] MEDS: hydrALAzine 20 MG INJ IV ×2 (12:17→23:44)
[2018-07-07] MEDS: BUMETANIDE 1 MG TAB PO ×2 (13:19→17:13)
[2018-07-07] MEDS: CEFEPIME 1GM/50 ML (PMX) 50 ML IVPB (16:23)
[2018-07-07] MEDS: EPOETIN 3000 UNITS/ML (NON ESRD/NON ONCOLOGY) SC (16:26)
[2018-07-07] MEDS: EZETIMIBE 10 MG TAB PO (20:43)
[2018-07-07] MEDS: FAMOTIDINE 20 MG TAB PO (20:43)
[2018-07-07] MEDS: ATORVASTATIN 80 MG TAB PO (20:43)
[2018-07-07] MEDS: INSULIN GLARGINE [LANTus] (100 UNITS/ML) SYG SC (20:47)
[2018-07-07] MEDS: DOXAZOSIN 2 MG TAB PO (20:50)
[2018-07-08] MEDS: CLINDAMYCIN 600 MG/D5W (PMX) 50 ML IVPB ×3 (04:40→20:22)
[2018-07-08] MEDS: BUMETANIDE 1 MG TAB PO ×2 (04:42→17:00)
[2018-07-08 06:56] LABS: ANION GAP 16 (5-13); BLOOD UREA NITROGEN 92 mg/dl (7-20); CALCIUM 8.7 mg/dl (8.4-10.2); CARBON DIOXIDE 25 mmol/L (21-31); CHLORIDE 102 mmol/L (97-110); Estimated GFR 16 mL/min (>60); GLUCOSE 67 mg/dl (70-220); POTASSIUM 3.7 mmol/L (3.5-5.1); SODIUM 143 mmol/L (135-144)
[2018-07-08] MEDS: ACCU-CHEK XX ×3 (07:00→17:06)
[2018-07-08] MEDS: APIXABAN 5 MG TABLET PO ×2 (08:13→20:20)
[2018-07-08] MEDS: CHOLECALCIFEROL 1,000 UNIT TAB PO (08:15)
[2018-07-08] MEDS: SEVELAMER CARBONATE 800 MG TABLET PO ×3 (08:15→17:00)
[2018-07-08] MEDS: DOCUSATE SODIUM 100 MG CAP PO ×2 (08:16→20:20)
[2018-07-08] MEDS: FLUTICASONE 0.05% 16 GM NAS SPRAY NASAL ×2 (08:16→20:34)
[2018-07-08] MEDS: POLYETHYLENE GLYCOL 17 GM PACKET PO (08:16)
[2018-07-08] MEDS: ISOSORBIDE MONONITRATE(SR)30 MG TAB PO (08:17)
[2018-07-08] MEDS: NIFEdipine (XL) 60 MG TAB PO ×2 (08:17→20:21)
[2018-07-08] MEDS: INSULIN ASPART [NOVOLOG] 3 ML PEN SC ×3 (08:22→17:06)
[2018-07-08] MEDS: hydrALAzine 20 MG INJ IV (17:00)
[2018-07-08] MEDS: EZETIMIBE 10 MG TAB PO (20:20)
[2018-07-08] MEDS: FAMOTIDINE 20 MG TAB PO (20:20)
[2018-07-08] MEDS: ATORVASTATIN 80 MG TAB PO (20:20)
[2018-07-08] MEDS: INSULIN GLARGINE [LANTus] (100 UNITS/ML) SYG SC (20:31)
[2018-07-08] MEDS: DOXAZOSIN 4 MG TAB PO (20:34)
[2018-07-09] MEDS: ACCU-CHEK XX ×4 (02:00→17:36)
[2018-07-09] MEDS: BUMETANIDE 1 MG TAB PO ×2 (05:15→17:37)
[2018-07-09] MEDS: CLINDAMYCIN 600 MG/D5W (PMX) 50 ML IVPB ×3 (05:15→21:01)
[2018-07-09 07:01] LABS: ANION GAP 13 (5-13); BLOOD UREA NITROGEN 88 mg/dl (7-20); CALCIUM 8.8 mg/dl (8.4-10.2); CARBON DIOXIDE 24 mmol/L (21-31); CHLORIDE 104 mmol/L (97-110); Estimated GFR 18 mL/min (>60); GLUCOSE 95 mg/dl (70-220); POTASSIUM 3.4 mmol/L (3.5-5.1); SODIUM 141 mmol/L (135-144)
[2018-07-09] MEDS: SEVELAMER CARBONATE 800 MG TABLET PO ×3 (07:40→17:37)
[2018-07-09] MEDS: INSULIN ASPART [NOVOLOG] 3 ML PEN SC ×3 (07:44→17:41)
[2018-07-09] MEDS: DOCUSATE SODIUM 100 MG CAP PO ×2 (08:16→20:47)
[2018-07-09] MEDS: APIXABAN 5 MG TABLET PO ×2 (08:17→20:48)
[2018-07-09] MEDS: CHOLECALCIFEROL 1,000 UNIT TAB PO (08:17)
[2018-07-09] MEDS: NIFEdipine (XL) 60 MG TAB PO ×2 (08:18→20:47)
[2018-07-09] MEDS: POLYETHYLENE GLYCOL 17 GM PACKET PO (08:19)
[2018-07-09] MEDS: ISOSORBIDE MONONITRATE(SR)30 MG TAB PO (08:19)
[2018-07-09] MEDS: POTASSIUM CHLORIDE (SR) 20 MEQ TAB PO (09:03)
[2018-07-09] MEDS: FLUTICASONE 0.05% 16 GM NAS SPRAY NASAL ×2 (11:40→20:50)
[2018-07-09] MEDS: EPOETIN 3000 UNITS/ML (NON ESRD/NON ONCOLOGY) SC (17:46)
[2018-07-09] MEDS: ATORVASTATIN 80 MG TAB PO (20:48)
[2018-07-09] MEDS: FAMOTIDINE 20 MG TAB PO (20:48)
[2018-07-09] MEDS: EZETIMIBE 10 MG TAB PO (20:48)
[2018-07-09] MEDS: DOXAZOSIN 4 MG TAB PO (20:48)
[2018-07-09] MEDS: INSULIN GLARGINE [LANTus] (100 UNITS/ML) SYG SC (20:56)
[2018-07-10] MEDS: ACCU-CHEK XX ×3 (02:00→11:42)
[2018-07-10 06:38] LABS: ANION GAP 9 (5-13); BLOOD UREA NITROGEN 79 mg/dl (7-20); CALCIUM 9.1 mg/dl (8.4-10.2); CARBON DIOXIDE 27 mmol/L (21-31); CHLORIDE 108 mmol/L (97-110); Estimated GFR 20 mL/min (>60); GLUCOSE 121 mg/dl (70-220); SODIUM 144 mmol/L (135-144)
[2018-07-10] MEDS: BUMETANIDE 1 MG TAB PO (06:42)
[2018-07-10] MEDS: CLINDAMYCIN 600 MG/D5W (PMX) 50 ML IVPB (06:42)
[2018-07-10] MEDS: SEVELAMER CARBONATE 800 MG TABLET PO ×2 (07:32→11:42)
[2018-07-10] MEDS: INSULIN ASPART [NOVOLOG] 3 ML PEN SC ×2 (07:41→11:46)
[2018-07-10] MEDS: APIXABAN 5 MG TABLET PO (08:12)
[2018-07-10] MEDS: DOCUSATE SODIUM 100 MG CAP PO (08:12)
[2018-07-10] MEDS: CHOLECALCIFEROL 1,000 UNIT TAB PO (08:12)
[2018-07-10] MEDS: ISOSORBIDE MONONITRATE(SR)30 MG TAB PO (08:13)
[2018-07-10] MEDS: NIFEdipine (XL) 60 MG TAB PO (08:14)
[2018-07-10] MEDS: FLUTICASONE 0.05% 16 GM NAS SPRAY NASAL (08:15)
[2018-07-10] MEDS: POLYETHYLENE GLYCOL 17 GM PACKET PO (08:15)
== END 2018-07-10 13:07 | disposition home health service (06) | DRG 871 ==
LOC: 6WM 07-01 08:51 → E/R 06:46 → 6WM 08:45
PROC: B246ZZ4 Ultrasonography of Right and Left Heart, Transesophageal (ICD-10-PCS; principal; 2018-07-01 09:00)
PROC: 30233N1 Transfusion of Nonautologous Red Blood Cells into Peripheral Vein, Percutaneous Approach (ICD-10-PCS; 2018-07-01 09:00)
PROC: 5A09457 Assistance with Respiratory Ventilation, 24-96 Consecutive Hours, Continuous Positive Airway Pressure (ICD-10-PCS; 2018-07-01 09:00)
DX: A41.9 Sepsis, unspecified organism (principal); I50.33 Acute on chronic diastolic (congestive) heart failure; J18.9 Pneumonia, unspecified organism; I13.0 Hypertensive heart and chronic kidney disease with heart failure and stage 1 through stage 4 chronic kidney disease, or unspecified chronic kidney disease; N18.4 Chronic kidney disease, stage 4 (severe); N17.9 Acute kidney failure, unspecified; M62.82 Rhabdomyolysis; E66.2 Morbid (severe) obesity with alveolar hypoventilation; B95.62 Methicillin resistant Staphylococcus aureus infection as the cause of diseases classified elsewhere; D63.1 Anemia in chronic kidney disease; D50.9 Iron deficiency anemia, unspecified; E11.22 Type 2 diabetes mellitus with diabetic chronic kidney disease; E87.70 Fluid overload, unspecified; E78.5 Hyperlipidemia, unspecified; E79.0 Hyperuricemia without signs of inflammatory arthritis and tophaceous disease; E11.21 Type 2 diabetes mellitus with diabetic nephropathy; F14.10 Cocaine abuse, uncomplicated; I48.0 Paroxysmal atrial fibrillation; M47.817 Spondylosis without myelopathy or radiculopathy, lumbosacral region; R60.1 Generalized edema; Z68.39 Body mass index [BMI] 39.0-39.9, adult; Z89.412 Acquired absence of left great toe; Z87.891 Personal history of nicotine dependence; Z91.81 History of falling; Z79.01 Long term (current) use of anticoagulants
CPT/HCPCS: 36415; 36430; 71045; 72148; 72192; 76604; 78806; 80048; 80053; 80061; 80202; 80307; 81001; 82270; 82550; 82553; 82962; 83540; 83605; 83690; 83735; 83880; 84100; 84439; 84443; 84481; 84484; 85025; 85610; 85730; 86850; 86900; 86901; 86920; 87040; 87081; 87086; 87400; 90686; 93005; 93306; 93312; 93320; 93325; 93970; 94660; 96374; 96375; 99285-25

== ENCOUNTER 2018-07-16 12:11 | Emergency (ER) | payer OTHER | END 2018-07-16 13:20 | disposition home or self-care (01) | LOC: E/R 12:11 | DX: Z00.00 Encounter for general adult medical examination without abnormal findings (principal); E11.9 Type 2 diabetes mellitus without complications; I50.9 Heart failure, unspecified; Z79.01 Long term (current) use of anticoagulants; Z79.4 Long term (current) use of insulin | CPT/HCPCS: 99282; Z7502 ==

== ENCOUNTER 2018-07-17 21:27 | Emergency (ER) | payer OTHER | END 2018-07-17 23:12 | disposition home or self-care (01) | LOC: FTE 21:27 | DX: T82.524A Displacement of infusion catheter, initial encounter (principal); I50.9 Heart failure, unspecified; E11.9 Type 2 diabetes mellitus without complications; Y82.8 Other medical devices associated with adverse incidents; Z79.4 Long term (current) use of insulin; Z79.01 Long term (current) use of anticoagulants | CPT/HCPCS: 99282 ==

== ENCOUNTER 2018-09-28 15:10 | Inpatient (IN) | payer OTHER ==
[2018-09-28 15:51] LABS: ADD MAN DIFF? NO
[2018-09-28 15:57] LABS: BASOPHILS % 0.4 % (0.0-2.0); EOSINOPHILS # 0.6 10^3/ul (0.0-0.5); EOSINOPHILS % 7.7 % (0.0-7.0); HEMATOCRIT 26.3 % (42.0-52.0); HEMOGLOBIN 8.2 g/dl (14.0-18.0); LYMPHOCYTES % 13.1 % (15.0-51.0); MEAN CORPUSCULAR HEMOGLOBIN 25.9 pg (29.0-33.0); MEAN CORPUSCULAR HGB CONC 31.2 g/dl (32.0-37.0); MEAN PLATELET VOLUME 10.4 fl (7.4-10.4); MONOCYTE # 0.8 10^3/ul (0.3-0.9); MONOCYTES % 11.1 % (0.0-11.0); NEUTROPHILS % 67.3 % (39.0-77.0); PLATELET COUNT 182 10^3/UL (140-415); RED BLOOD COUNT 3.17 10^6/ul (4.70-6.10); RED CELL DISTRIBUTION WIDTH 14.4 % (11.5-14.5)
[2018-09-28 15:57] LABS: WHITE BLOOD COUNT 7.4 10^3/ul (4.8-10.8)
[2018-09-28 16:17] LABS: INR 0.96; PROTIME 12.9 Sec (11.9-14.9)
[2018-09-28 16:19] LABS: PARTIAL THROMBOPLASTIN TIME 59.2 Sec (23.0-35.0)
[2018-09-28 16:22] LABS: ANION GAP 8 (5-13); BLOOD UREA NITROGEN 78 mg/dl (7-20); CALCIUM 9.2 mg/dl (8.4-10.2); CARBON DIOXIDE 27 mmol/L (21-31); CHLORIDE 105 mmol/L (97-110); CREATININE 4.16 mg/dl (0.61-1.24); Estimated GFR 16 mL/min (>60); GLUCOSE 56 mg/dl (70-220); SODIUM 140 mmol/L (135-144)
[2018-09-28 16:34] LABS: B-TYPE NATRIURETIC PEPTIDE 2810 PG/ML (0-125); TROPONIN-I < 0.012 ng/ml (0.000-0.120)
[2018-09-28] MEDS: FUROSEMIDE 40 MG INJ IV (17:24)
[2018-09-28] MEDS ORDERED: HYDROCODONE/APAP (5/325) TAB PO (18:30)
[2018-09-28] MEDS ORDERED: NACL 0.9% 3 ML SYG IV (18:30)
[2018-09-28] MEDS ORDERED: ACETAMINOPHEN 325 MG TAB PO (18:30)
[2018-09-28] MEDS ORDERED: ONDANSETRON 4 MG INJ IV (18:30)
[2018-09-28] MEDS ORDERED: ALBUTEROL/IPRATROPIUM (NEB) 3 ML AMP HHN (18:30)
[2018-09-28] MEDS ORDERED: DEXTROSE 50% 50 ML SYRINGE IV ×2 (19:00)
[2018-09-28] MEDS ORDERED: GLUCOSE GEL 15 GRAM TUBE BUCCAL (19:00)
[2018-09-28] MEDS ORDERED: GLUCOSE GEL 15 GRAM TUBE PO ×2 (19:00)
[2018-09-28] MEDS ORDERED: GLUCAGON 1 MG INJ IM (19:00)
[2018-09-28] MEDS: INSULIN ASPART [NOVOLOG] 3 ML PEN SC (21:00)
[2018-09-28] MEDS: ATORVASTATIN 80 MG TAB PO (21:19)
[2018-09-28] MEDS: NIFEdipine (XL) 60 MG TAB PO (21:19)
[2018-09-28] MEDS: EZETIMIBE 10 MG TAB PO (21:21)
[2018-09-28] MEDS: APIXABAN 5 MG TABLET PO (21:21)
[2018-09-28] MEDS: DOXAZOSIN 4 MG TAB PO (21:22)
[2018-09-29] MEDS: INSULIN GLARGINE [LANTus] (100 UNITS/ML) SYG SC ×2 (01:14→21:16)
[2018-09-29] MEDS: ACCU-CHEK XX (02:00)
[2018-09-29 06:02] LABS: ADD MAN DIFF? NO
[2018-09-29 06:11] LABS: BASOPHILS % 0.3 % (0.0-2.0); EOSINOPHILS # 0.6 10^3/ul (0.0-0.5); EOSINOPHILS % 8.8 % (0.0-7.0); HEMATOCRIT 26.8 % (42.0-52.0); HEMOGLOBIN 8.5 g/dl (14.0-18.0); LYMPHOCYTES % 14.9 % (15.0-51.0); MEAN CORPUSCULAR HEMOGLOBIN 25.8 pg (29.0-33.0); MEAN CORPUSCULAR HGB CONC 31.7 g/dl (32.0-37.0); MEAN CORPUSCULAR VOLUME 81.2 fl (82.0-101.0); MEAN PLATELET VOLUME 10.7 fl (7.4-10.4); MONOCYTE # 0.7 10^3/ul (0.3-0.9); MONOCYTES % 10.9 % (0.0-11.0); NEUTROPHIL # 4.3 10^3/ul (1.6-7.5); NEUTROPHILS % 64.6 % (39.0-77.0); PLATELET COUNT 169 10^3/UL (140-415); RED CELL DISTRIBUTION WIDTH 14.4 % (11.5-14.5)
[2018-09-29 06:11] LABS: WHITE BLOOD COUNT 6.6 10^3/ul (4.8-10.8)
[2018-09-29] MEDS: FUROSEMIDE 40 MG INJ IV ×2 (06:31→17:43)
[2018-09-29 07:18] LABS: ALANINE AMINOTRANSFERASE 36 IU/L (13-69); ALBUMIN 3.6 g/dl (3.3-4.9); ALBUMIN/GLOBULIN RATIO 1.28; ALKALINE PHOSPHATASE 96 IU/L (42-121); ANION GAP 10 (5-13); ASPARTATE AMINO TRANSFERASE 23 IU/L (15-46); BLOOD UREA NITROGEN 75 mg/dl (7-20); CALCIUM 9.2 mg/dl (8.4-10.2); CARBON DIOXIDE 27 mmol/L (21-31); CHLORIDE 105 mmol/L (97-110); CHOL/HDL RATIO 5.6 RATIO; CHOLESTEROL 96 mg/dl (100-200); CREATININE 3.97 mg/dl (0.61-1.24); Estimated GFR 17 mL/min (>60); GLUCOSE 141 mg/dl (70-220); HDL CHOLESTEROL 17 mg/dl (27-67); LDL CHOLESTEROL,CALCULATED 35 mg/dl; MAGNESIUM 2.3 mg/dl (1.7-2.5); POTASSIUM 3.4 mmol/L (3.5-5.1); SODIUM 142 mmol/L (135-144); TOTAL PROTEIN 6.4 g/dl (6.1-8.1); TRIGLYCERIDES 218 mg/dl (0-149)
[2018-09-29 08:04] LABS: BILIRUBIN,INDIRECT 0.3 mg/dl (0-1.1); BILIRUBIN,TOTAL 0.3 mg/dl (0.2-1.3)
[2018-09-29] MEDS: SEVELAMER CARBONATE 0.8 GM PKT PO ×3 (08:06→17:42)
[2018-09-29] MEDS: INSULIN ASPART [NOVOLOG] 3 ML PEN SC ×7 (08:08→21:00)
[2018-09-29] MEDS: ISOSORBIDE MONONITRATE(SR)30 MG TAB PO (08:16)
[2018-09-29] MEDS: APIXABAN 5 MG TABLET PO ×2 (08:16→21:05)
[2018-09-29] MEDS: SPIRONOLACTONE 25 MG TAB PO (08:16)
[2018-09-29] MEDS: CHOLECALCIFEROL 2,000 UNIT CAP PO (08:16)
[2018-09-29] MEDS: NIFEdipine (XL) 60 MG TAB PO ×2 (08:17→21:07)
[2018-09-29] MEDS: morphine 2 MG INJ IV ×3 (08:18→23:00)
[2018-09-29] MEDS: POTASSIUM CHLORIDE (SR) 20 MEQ TAB PO (08:28)
[2018-09-29] MEDS: METOLAZONE 5 MG TAB PO (08:28)
[2018-09-29] MEDS ORDERED: MINERAL OIL 133 ML ENEMA PR (12:00)
[2018-09-29] MEDS: BISACODYL (EC) 5 MG TAB PO (12:10)
[2018-09-29] MEDS: SENNA/DOCUSATE NA (8.6MG/50MG) TAB PO (15:45)
[2018-09-29] MEDS: DOCUSATE SODIUM 100 MG CAP PO (21:05)
[2018-09-29] MEDS: ATORVASTATIN 80 MG TAB PO (21:05)
[2018-09-29] MEDS: EZETIMIBE 10 MG TAB PO (21:05)
[2018-09-29] MEDS: DOXAZOSIN 4 MG TAB PO (21:05)
[2018-09-30] MEDS: ACCU-CHEK XX (02:15)
[2018-09-30] MEDS: morphine 2 MG INJ IV ×2 (04:33→20:24)
[2018-09-30] MEDS: FUROSEMIDE 40 MG INJ IV (06:25)
[2018-09-30 06:50] LABS: ADD MAN DIFF? NO
[2018-09-30 06:53] LABS: BASOPHILS % 0.5 % (0.0-2.0); EOSINOPHILS # 0.5 10^3/ul (0.0-0.5); EOSINOPHILS % 8.8 % (0.0-7.0); HEMATOCRIT 26.9 % (42.0-52.0); HEMOGLOBIN 8.3 g/dl (14.0-18.0); LYMPHOCYTES # 1.1 10^3/ul (0.8-2.9); LYMPHOCYTES % 19.6 % (15.0-51.0); MEAN CORPUSCULAR HEMOGLOBIN 25.3 pg (29.0-33.0); MEAN CORPUSCULAR HGB CONC 30.9 g/dl (32.0-37.0); MEAN PLATELET VOLUME 11.1 fl (7.4-10.4); MONOCYTE # 0.8 10^3/ul (0.3-0.9); MONOCYTES % 13.4 % (0.0-11.0); NEUTROPHIL # 3.2 10^3/ul (1.6-7.5); NEUTROPHILS % 57.3 % (39.0-77.0); PLATELET COUNT 164 10^3/UL (140-415); RED BLOOD COUNT 3.28 10^6/ul (4.70-6.10); RED CELL DISTRIBUTION WIDTH 14.6 % (11.5-14.5)
[2018-09-30 06:53] LABS: WHITE BLOOD COUNT 5.6 10^3/ul (4.8-10.8)
[2018-09-30 07:19] LABS: ANION GAP 9 (5-13); BLOOD UREA NITROGEN 81 mg/dl (7-20); CALCIUM 8.6 mg/dl (8.4-10.2); CARBON DIOXIDE 29 mmol/L (21-31); CHLORIDE 104 mmol/L (97-110); Estimated GFR 16 mL/min (>60); MAGNESIUM 2.4 mg/dl (1.7-2.5); POTASSIUM 3.8 mmol/L (3.5-5.1); SODIUM 142 mmol/L (135-144)
[2018-09-30 07:21] LABS: GLUCOSE 48 mg/dl (70-220)
[2018-09-30] MEDS: INSULIN ASPART [NOVOLOG] 3 ML PEN SC ×6 (07:55→20:58)
[2018-09-30] MEDS: SEVELAMER CARBONATE 0.8 GM PKT PO ×3 (08:11→18:03)
[2018-09-30] MEDS: CHOLECALCIFEROL 2,000 UNIT CAP PO (08:12)
[2018-09-30] MEDS: ISOSORBIDE MONONITRATE(SR)30 MG TAB PO ×2 (08:12→18:03)
[2018-09-30] MEDS: DOCUSATE SODIUM 100 MG CAP PO ×2 (08:12→20:12)
[2018-09-30] MEDS: SPIRONOLACTONE 25 MG TAB PO (08:13)
[2018-09-30] MEDS: APIXABAN 5 MG TABLET PO ×2 (08:13→20:12)
[2018-09-30] MEDS: NIFEdipine (XL) 60 MG TAB PO ×2 (08:14→20:13)
[2018-09-30 08:54] LABS: CREATININE,URINE RANDOM 42.24 mg/dl (20-370)
[2018-09-30 09:14] LABS: SODIUM,URINE RANDOM 105 mmol/L (30-90)
[2018-09-30 10:09] LABS: ADD UMIC YES; UR ASCORBIC ACID NEGATIVE (NEGATIVE); UR BILIRUBIN (Dip) NEGATIVE (NEGATIVE); UR BLOOD (Dip) NEGATIVE (NEGATIVE); UR CLARITY CLEAR (CLEAR); UR COLOR STRAW (YELLOW); UR GLUCOSE (Dip) 1+ mg/dL (NEGATIVE); UR KETONES (Dip) NEGATIVE (NEGATIVE); UR LEUKOCYTE ESTERASE (Dip) NEGATIVE Leu/ul (NEGATIVE); UR NITRITE (Dip) NEGATIVE (NEGATIVE); UR RBC 1 /HPF (0-5); UR TOTAL PROTEIN (Dip) 2+ mg/dl (NEGATIVE); UR UROBILINOGEN (Dip) NEGATIVE (NEGATIVE); UR WBC 0 /HPF (0-5)
[2018-09-30] MEDS ORDERED: hydrALAzine 20 MG INJ IV (12:00)
[2018-09-30] MEDS: BUMETANIDE 1 MG TAB PO (18:03)
[2018-09-30] MEDS: SENNA/DOCUSATE NA (8.6MG/50MG) TAB PO (18:04)
[2018-09-30] MEDS: EZETIMIBE 10 MG TAB PO (20:13)
[2018-09-30] MEDS: ATORVASTATIN 80 MG TAB PO (20:13)
[2018-09-30] MEDS: DOXAZOSIN 4 MG TAB PO (20:13)
[2018-09-30] MEDS: INSULIN GLARGINE [LANTus] (100 UNITS/ML) SYG SC (20:57)
[2018-09-30] MEDS: ZOLPIDEM 5 MG TAB PO (23:23)
[2018-10-01] MEDS: ACCU-CHEK XX (01:39)
[2018-10-01] MEDS: BUMETANIDE 1 MG TAB PO (06:14)
[2018-10-01] MEDS: INSULIN ASPART [NOVOLOG] 3 ML PEN SC ×5 (07:55→12:54)
[2018-10-01] MEDS: SEVELAMER CARBONATE 0.8 GM PKT PO ×2 (08:05→12:10)
[2018-10-01] MEDS: NIFEdipine (XL) 60 MG TAB PO (08:07)
[2018-10-01] MEDS: CHOLECALCIFEROL 2,000 UNIT CAP PO (08:07)
[2018-10-01] MEDS: APIXABAN 5 MG TABLET PO (08:07)
[2018-10-01] MEDS: DOCUSATE SODIUM 100 MG CAP PO (08:08)
[2018-10-01] MEDS: SPIRONOLACTONE 25 MG TAB PO (08:08)
[2018-10-01] MEDS: ISOSORBIDE MONONITRATE(SR)30 MG TAB PO (08:15)
[2018-10-01 08:28] LABS: ADD MAN DIFF? NO
[2018-10-01 08:36] LABS: WHITE BLOOD COUNT 4.8 10^3/ul (4.8-10.8)
[2018-10-01 08:36] LABS: BASOPHILS % 0.4 % (0.0-2.0); EOSINOPHILS # 0.4 10^3/ul (0.0-0.5); EOSINOPHILS % 8.3 % (0.0-7.0); HEMATOCRIT 31.5 % (42.0-52.0); HEMOGLOBIN 9.7 g/dl (14.0-18.0); LYMPHOCYTES % 20.6 % (15.0-51.0); MEAN CORPUSCULAR HEMOGLOBIN 25.5 pg (29.0-33.0); MEAN CORPUSCULAR HGB CONC 30.8 g/dl (32.0-37.0); MEAN CORPUSCULAR VOLUME 82.7 fl (82.0-101.0); MEAN PLATELET VOLUME 11.3 fl (7.4-10.4); MONOCYTE # 0.5 10^3/ul (0.3-0.9); MONOCYTES % 11.2 % (0.0-11.0); NEUTROPHIL # 2.8 10^3/ul (1.6-7.5); NEUTROPHILS % 59.1 % (39.0-77.0); PLATELET COUNT 190 10^3/UL (140-415); RED BLOOD COUNT 3.81 10^6/ul (4.70-6.10); RED CELL DISTRIBUTION WIDTH 14.9 % (11.5-14.5)
[2018-10-01 09:11] LABS: ANION GAP 13 (5-13); BLOOD UREA NITROGEN 85 mg/dl (7-20); CALCIUM 8.7 mg/dl (8.4-10.2); CARBON DIOXIDE 29 mmol/L (21-31); CHLORIDE 99 mmol/L (97-110); Estimated GFR 16 mL/min (>60); GLUCOSE 59 mg/dl (70-220); MAGNESIUM 2.6 mg/dl (1.7-2.5); PHOSPHORUS 6.7 mg/dl (2.5-4.9); POTASSIUM 3.7 mmol/L (3.5-5.1); SODIUM 141 mmol/L (135-144)
[2018-10-01] MEDS: morphine 2 MG INJ IV (09:19)
[2018-10-01 16:02] LABS: CREATININE, RANDOM URINE 43 mg/dL (20-320); MICROALBUMIN 72.9 mg/dL; MICROALBUMIN/CREATININE RATIO 1695 (<30)
== END 2018-10-01 13:40 | disposition home or self-care (01) | DRG 291 ==
LOC: TEL 20:06 → E/R 15:10 → TEL 18:13
DX: I13.0 Hypertensive heart and chronic kidney disease with heart failure and stage 1 through stage 4 chronic kidney disease, or unspecified chronic kidney disease (principal); I50.33 Acute on chronic diastolic (congestive) heart failure; N18.4 Chronic kidney disease, stage 4 (severe); I48.0 Paroxysmal atrial fibrillation; E11.22 Type 2 diabetes mellitus with diabetic chronic kidney disease; Z89.412 Acquired absence of left great toe; D63.1 Anemia in chronic kidney disease; I42.9 Cardiomyopathy, unspecified; K59.00 Constipation, unspecified; R60.1 Generalized edema
CPT/HCPCS: 36415; 71045; 80048; 80053; 80061; 81001; 81003; 82043; 82962; 83036; 83735; 83880; 84100; 84155; 84300; 84443; 84484; 85025; 85610; 85730; 93005; 93306; 93970; 96374; 99285-25; G0378

== ENCOUNTER 2018-11-30 22:07 | Inpatient (IN) | payer OTHER ==
[2018-11-30 23:01] LABS: ADD MAN DIFF? NO
[2018-11-30 23:03] LABS: BASOPHILS % 0.4 % (0.0-2.0); EOSINOPHILS # 0.5 10^3/ul (0.0-0.5); EOSINOPHILS % 6.1 % (0.0-7.0); HEMATOCRIT 24.9 % (42.0-52.0); HEMOGLOBIN 7.8 g/dl (14.0-18.0); LYMPHOCYTES # 1.1 10^3/ul (0.8-2.9); LYMPHOCYTES % 14.2 % (15.0-51.0); MEAN CORPUSCULAR HEMOGLOBIN 26.1 pg (29.0-33.0); MEAN CORPUSCULAR HGB CONC 31.3 g/dl (32.0-37.0); MEAN CORPUSCULAR VOLUME 83.3 fl (82.0-101.0); MEAN PLATELET VOLUME 10.9 fl (7.4-10.4); MONOCYTE # 0.6 10^3/ul (0.3-0.9); MONOCYTES % 7.8 % (0.0-11.0); NEUTROPHIL # 5.7 10^3/ul (1.6-7.5); NEUTROPHILS % 70.7 % (39.0-77.0); PLATELET COUNT 192 10^3/UL (140-415); RED BLOOD COUNT 2.99 10^6/ul (4.70-6.10); RED CELL DISTRIBUTION WIDTH 15.1 % (11.5-14.5)
[2018-11-30 23:21] LABS: ALANINE AMINOTRANSFERASE 33 IU/L (13-69); ALBUMIN/GLOBULIN RATIO 1.42; ALKALINE PHOSPHATASE 102 IU/L (42-121); ANION GAP 14 (5-13); ASPARTATE AMINO TRANSFERASE 24 IU/L (15-46); BILIRUBIN,INDIRECT 0.4 mg/dl (0-1.1); BILIRUBIN,TOTAL 0.4 mg/dl (0.2-1.3); BLOOD UREA NITROGEN 66 mg/dl (7-20); CALCIUM 8.7 mg/dl (8.4-10.2); CARBON DIOXIDE 26 mmol/L (21-31); CHLORIDE 106 mmol/L (97-110); CREATININE 3.91 mg/dl (0.61-1.24); Estimated GFR 17 mL/min (>60); GLUCOSE 179 mg/dl (70-220); POTASSIUM 3.8 mmol/L (3.5-5.1); SODIUM 146 mmol/L (135-144); TOTAL PROTEIN 6.8 g/dl (6.1-8.1)
[2018-11-30 23:33] LABS: B-TYPE NATRIURETIC PEPTIDE 3150 PG/ML (0-125)
[2018-12-01 00:26] LABS: TROPONIN-I < 0.012 ng/ml (0.000-0.120)
[2018-12-01] MEDS ORDERED: ACETAMINOPHEN 325 MG TAB PO ×2 (01:00→01:30)
[2018-12-01] MEDS: FUROSEMIDE 40 MG INJ IV (01:01)
[2018-12-01] MEDS ORDERED: NACL 0.9% 3 ML SYG IV (01:30)
[2018-12-01] MEDS ORDERED: ONDANSETRON 4 MG INJ IV (01:30)
[2018-12-01] MEDS ORDERED: NITROGLYCERIN (SL) 0.4 MG TAB SL (01:30)
[2018-12-01] MEDS ORDERED: DOCUSATE SODIUM 100 MG CAP PO (01:30)
[2018-12-01] MEDS: ONDANSETRON 4 MG INJ IV (02:03)
[2018-12-01] MEDS: morphine 4 MG/ML VIAL IV (02:03)
[2018-12-01] MEDS: HEPARIN 5,000 UNIT/1 ML VIAL SC (02:08)
[2018-12-01] MEDS ORDERED: BUMETANIDE 1 MG INJ IV (06:00)
[2018-12-01] MEDS ORDERED: FUROSEMIDE 40 MG INJ IV (06:00)
[2018-12-01] MEDS: BUMETANIDE 1 MG INJ IV ×2 (06:18→17:23)
[2018-12-01] MEDS ORDERED: GLUCOSE GEL 15 GRAM TUBE BUCCAL (06:30)
[2018-12-01] MEDS ORDERED: GLUCOSE GEL 15 GRAM TUBE PO ×2 (06:30)
[2018-12-01] MEDS ORDERED: DEXTROSE 50% 50 ML SYRINGE IV ×2 (06:30)
[2018-12-01] MEDS ORDERED: GLUCAGON 1 MG INJ IM (06:30)
[2018-12-01 06:42] LABS: CREATINE KINASE 335 IU/L (23-200)
[2018-12-01 06:53] LABS: CK INDEX 1.4; TROPONIN-I 0.016 ng/ml (0.000-0.120)
[2018-12-01 06:54] LABS: CK-MB 4.65 ng/ml (0.0-2.4)
[2018-12-01] MEDS: INSULIN ASPART [NOVOLOG] 3 ML PEN SC ×7 (07:51→20:48)
[2018-12-01] MEDS ORDERED: INSULIN ASPART [NOVOLOG] 3 ML PEN SC (08:00)
[2018-12-01] MEDS ORDERED: NON-FORMULARY/PATIENT OWN MED (Insulin Lispro (Humalog Kwikpen U-100) 15 UNIT) SQ (08:00)
[2018-12-01] MEDS: SEVELAMER CARBONATE 0.8 GM PKT PO ×3 (08:03→17:23)
[2018-12-01] MEDS: SPIRONOLACTONE 25 MG TAB PO (08:23)
[2018-12-01] MEDS: POTASSIUM CHLORIDE (SR) 10 MEQ TAB PO ×2 (08:23→20:35)
[2018-12-01] MEDS: NIFEdipine (XL) 60 MG TAB PO (08:24)
[2018-12-01] MEDS: APIXABAN 5 MG TABLET PO (08:24)
[2018-12-01] MEDS: ISOSORBIDE MONONITRATE(SR)60 MG TAB PO (08:24)
[2018-12-01] MEDS: morphine 2 MG INJ IV ×2 (08:25→23:48)
[2018-12-01 11:23] LABS: CREATINE KINASE 270 IU/L (23-200)
[2018-12-01 11:34] LABS: CK INDEX 1.6; TROPONIN-I 0.014 ng/ml (0.000-0.120)
[2018-12-01 11:36] LABS: CK-MB 4.37 ng/ml (0.0-2.4)
[2018-12-01] MEDS: METOLAZONE 10 MG TAB PO (11:56)
[2018-12-01 13:32] LABS: PARATHYROID HORMONE 149.1 pg/ml (24.0-73.0)
[2018-12-01] MEDS: EZETIMIBE 10 MG TAB PO (20:35)
[2018-12-01] MEDS: DOXAZOSIN 4 MG TAB PO (20:36)
[2018-12-01] MEDS: ATORVASTATIN 80 MG TAB PO (20:37)
[2018-12-01] MEDS: INSULIN GLARGINE [LANTus] (100 UNITS/ML) SYG SC (20:47)
[2018-12-01] MEDS: NIFEdipine (XL) 30 MG TAB PO (20:53)
[2018-12-01] MEDS ORDERED: VANCOMYCIN IV PER PHARMACY XX (23:00)
[2018-12-02] MEDS ORDERED: VANCOMYCIN HCL 2 GM in SOD CHLORIDE 0.9% 500 ML IVPB (01:00)
[2018-12-02] MEDS: VANCOMYCIN HCL 2 GM in SOD CHLORIDE 0.9% 500 ML IVPB (01:08)
[2018-12-02] MEDS: DIPHENHYDRAMINE 50 MG CAP PO (01:08)
[2018-12-02] MEDS: ACCU-CHEK XX (02:03)
[2018-12-02 06:05] LABS: ADD MAN DIFF? NO
[2018-12-02 06:10] LABS: BASOPHILS % 0.3 % (0.0-2.0); EOSINOPHILS # 0.4 10^3/ul (0.0-0.5); EOSINOPHILS % 5.2 % (0.0-7.0); HEMATOCRIT 24.3 % (42.0-52.0); HEMOGLOBIN 7.5 g/dl (14.0-18.0); LYMPHOCYTES # 0.6 10^3/ul (0.8-2.9); MEAN CORPUSCULAR HGB CONC 30.9 g/dl (32.0-37.0); MEAN CORPUSCULAR VOLUME 84.1 fl (82.0-101.0); MEAN PLATELET VOLUME 10.9 fl (7.4-10.4); MONOCYTE # 0.5 10^3/ul (0.3-0.9); MONOCYTES % 6.9 % (0.0-11.0); NEUTROPHIL # 5.6 10^3/ul (1.6-7.5); NEUTROPHILS % 78.2 % (39.0-77.0); PLATELET COUNT 188 10^3/UL (140-415); RED BLOOD COUNT 2.89 10^6/ul (4.70-6.10); RED CELL DISTRIBUTION WIDTH 15.1 % (11.5-14.5)
[2018-12-02 06:10] LABS: WHITE BLOOD COUNT 7.1 10^3/ul (4.8-10.8)
[2018-12-02] MEDS: BUMETANIDE 1 MG INJ IV ×2 (06:19→17:24)
[2018-12-02 06:37] LABS: ALANINE AMINOTRANSFERASE 34 IU/L (13-69); ALBUMIN 3.6 g/dl (3.3-4.9); ALBUMIN/GLOBULIN RATIO 1.28; ALKALINE PHOSPHATASE 83 IU/L (42-121); ANION GAP 10 (5-13); ASPARTATE AMINO TRANSFERASE 18 IU/L (15-46); BILIRUBIN,INDIRECT 0.4 mg/dl (0-1.1); BILIRUBIN,TOTAL 0.4 mg/dl (0.2-1.3); BLOOD UREA NITROGEN 72 mg/dl (7-20); CALCIUM 8.1 mg/dl (8.4-10.2); CARBON DIOXIDE 27 mmol/L (21-31); CHLORIDE 106 mmol/L (97-110); CREATININE 4.11 mg/dl (0.61-1.24); Estimated GFR 16 mL/min (>60); GLUCOSE 114 mg/dl (70-220); POTASSIUM 3.9 mmol/L (3.5-5.1); SODIUM 143 mmol/L (135-144); TOTAL PROTEIN 6.4 g/dl (6.1-8.1)
[2018-12-02 06:43] LABS: CHOL/HDL RATIO 4.3 RATIO; HDL CHOLESTEROL 15 mg/dl (27-67); LDL CHOLESTEROL,CALCULATED 27 mg/dl; TRIGLYCERIDES 113 mg/dl (0-149)
[2018-12-02 06:43] LABS: CHOLESTEROL 65 mg/dl (100-200)
[2018-12-02 07:24] LABS: HEMOGLOBIN A1C 7.3 % (0-5.9)
[2018-12-02] MEDS: INSULIN ASPART [NOVOLOG] 3 ML PEN SC ×7 (08:00→21:00)
[2018-12-02] MEDS: SEVELAMER CARBONATE 0.8 GM PKT PO ×3 (08:01→17:16)
[2018-12-02] MEDS: SPIRONOLACTONE 25 MG TAB PO (09:21)
[2018-12-02] MEDS: NIFEdipine (XL) 30 MG TAB PO ×2 (09:23→22:02)
[2018-12-02] MEDS: ISOSORBIDE MONONITRATE(SR)60 MG TAB PO (09:24)
[2018-12-02] MEDS: POTASSIUM CHLORIDE (SR) 10 MEQ TAB PO ×2 (09:24→22:03)
[2018-12-02 11:09] LABS: MAGNESIUM 2.4 mg/dl (1.7-2.5)
[2018-12-02] MEDS: BUMETANIDE 6 MG in DEXTROSE 5% 36 ML IV (12:16)
[2018-12-02] MEDS: BISACODYL (EC) 5 MG TAB PO (13:46)
[2018-12-02] MEDS: morphine 2 MG INJ IV ×2 (13:46→23:33)
[2018-12-02] MEDS: INSULIN GLARGINE [LANTus] (100 UNITS/ML) SYG SC ×2 (21:00→22:40)
[2018-12-02] MEDS: DOXAZOSIN 4 MG TAB PO (22:02)
[2018-12-02] MEDS: POLYETHYLENE GLYCOL 17 GM PACKET NGT (22:02)
[2018-12-02] MEDS: ATORVASTATIN 80 MG TAB PO (22:03)
[2018-12-02] MEDS: EZETIMIBE 10 MG TAB PO (22:04)
[2018-12-03] MEDS: DIPHENHYDRAMINE 50 MG CAP PO (02:00)
[2018-12-03] MEDS: ACCU-CHEK XX (02:14)
[2018-12-03] MEDS: BUMETANIDE 1 MG INJ IV ×2 (05:34→17:13)
[2018-12-03 06:19] LABS: ADD MAN DIFF? NO
[2018-12-03 06:23] LABS: ABNORMAL IP MESSAGE 1; BASOPHILS % 0.3 % (0.0-2.0); EOSINOPHILS # 0.5 10^3/ul (0.0-0.5); EOSINOPHILS % 8.2 % (0.0-7.0); HEMATOCRIT 22.3 % (42.0-52.0); LYMPHOCYTES # 0.6 10^3/ul (0.8-2.9); LYMPHOCYTES % 9.2 % (15.0-51.0); MEAN CORPUSCULAR HEMOGLOBIN 26.4 pg (29.0-33.0); MEAN CORPUSCULAR HGB CONC 31.4 g/dl (32.0-37.0); MEAN CORPUSCULAR VOLUME 84.2 fl (82.0-101.0); MEAN PLATELET VOLUME 11.5 fl (7.4-10.4); MONOCYTE # 0.7 10^3/ul (0.3-0.9); MONOCYTES % 11.9 % (0.0-11.0); NEUTROPHIL # 4.2 10^3/ul (1.6-7.5); NEUTROPHILS % 70.1 % (39.0-77.0); PLATELET COUNT 174 10^3/UL (140-415); POSITIVE DIFF @See below; RED BLOOD COUNT 2.65 10^6/ul (4.70-6.10)
[2018-12-03] MEDS: SEVELAMER CARBONATE 0.8 GM PKT PO ×3 (07:49→17:13)
[2018-12-03] MEDS: INSULIN ASPART [NOVOLOG] 3 ML PEN SC ×7 (07:50→21:38)
[2018-12-03 07:55] LABS: ALANINE AMINOTRANSFERASE 27 IU/L (13-69); ALBUMIN 3.5 g/dl (3.3-4.9); ALBUMIN/GLOBULIN RATIO 1.25; ALKALINE PHOSPHATASE 91 IU/L (42-121); ANION GAP 11 (5-13); ASPARTATE AMINO TRANSFERASE 15 IU/L (15-46); BILIRUBIN,INDIRECT 0.4 mg/dl (0-1.1); BILIRUBIN,TOTAL 0.4 mg/dl (0.2-1.3); BLOOD UREA NITROGEN 75 mg/dl (7-20); CARBON DIOXIDE 27 mmol/L (21-31); CHLORIDE 104 mmol/L (97-110); CREATININE 4.19 mg/dl (0.61-1.24); Estimated GFR 16 mL/min (>60); GLUCOSE 137 mg/dl (70-220); POTASSIUM 3.6 mmol/L (3.5-5.1); SODIUM 142 mmol/L (135-144); TOTAL PROTEIN 6.3 g/dl (6.1-8.1)
[2018-12-03 08:07] LABS: MAGNESIUM 2.4 mg/dl (1.7-2.5)
[2018-12-03 08:07] LABS: PHOSPHORUS 4.7 mg/dl (2.5-4.9)
[2018-12-03] MEDS: POTASSIUM CHLORIDE (SR) 20 MEQ TAB PO (09:01)
[2018-12-03] MEDS: ISOSORBIDE MONONITRATE(SR)60 MG TAB PO (09:01)
[2018-12-03] MEDS: NIFEdipine (XL) 30 MG TAB PO ×2 (09:02→21:24)
[2018-12-03] MEDS: POTASSIUM CHLORIDE (SR) 10 MEQ TAB PO ×2 (09:02→21:24)
[2018-12-03] MEDS: METOLAZONE 5 MG TAB PO (09:02)
[2018-12-03] MEDS: SPIRONOLACTONE 25 MG TAB PO (09:03)
[2018-12-03] MEDS: morphine 2 MG INJ IV ×2 (09:17→21:43)
[2018-12-03] MEDS: BUMETANIDE 6 MG in DEXTROSE 5% 36 ML IV (11:07)
[2018-12-03] MEDS ORDERED: EPOETIN ALFA-EPBX (NON-ESRD 10,000 UNIT/ML VIAL SC (12:30)
[2018-12-03 13:54] LABS: INR 1.04; PROTIME 13.7 Sec (11.9-14.9); PT RATIO 1.1
[2018-12-03 13:56] LABS: PARTIAL THROMBOPLASTIN TIME 65.5 Sec (23.0-35.0)
[2018-12-03] MEDS: CEFTRIAXONE 1 GM/50 ML (PMX) 50 ML IVPB (17:13)
[2018-12-03] MEDS: ATORVASTATIN 80 MG TAB PO (21:23)
[2018-12-03] MEDS: EZETIMIBE 10 MG TAB PO (21:23)
[2018-12-03] MEDS: DOXAZOSIN 4 MG TAB PO (21:25)
[2018-12-03] MEDS: INSULIN GLARGINE [LANTus] (100 UNITS/ML) SYG SC (21:37)
[2018-12-03] MEDS: MAGNESIUM HYDROXIDE 30ML CUP PO (21:42)
[2018-12-04] MEDS: DIPHENHYDRAMINE 50 MG CAP PO (02:49)
[2018-12-04 06:05] LABS: ADD MAN DIFF? NO
[2018-12-04 06:11] LABS: ABNORMAL IP MESSAGE 1; BASOPHILS % 0.4 % (0.0-2.0); EOSINOPHILS # 0.4 10^3/ul (0.0-0.5); EOSINOPHILS % 7.7 % (0.0-7.0); HEMATOCRIT 21.4 % (42.0-52.0); LYMPHOCYTES # 0.6 10^3/ul (0.8-2.9); LYMPHOCYTES % 11.1 % (15.0-51.0); MEAN CORPUSCULAR HEMOGLOBIN 26.1 pg (29.0-33.0); MEAN CORPUSCULAR HGB CONC 31.8 g/dl (32.0-37.0); MEAN PLATELET VOLUME 11.2 fl (7.4-10.4); MONOCYTE # 0.8 10^3/ul (0.3-0.9); MONOCYTES % 13.5 % (0.0-11.0); NEUTROPHIL # 3.7 10^3/ul (1.6-7.5); NEUTROPHILS % 66.9 % (39.0-77.0); PLATELET COUNT 161 10^3/UL (140-415); POSITIVE DIFF @See below; RED BLOOD COUNT 2.61 10^6/ul (4.70-6.10); RED CELL DISTRIBUTION WIDTH 15.2 % (11.5-14.5)
[2018-12-04 06:11] LABS: WHITE BLOOD COUNT 5.6 10^3/ul (4.8-10.8)
[2018-12-04] MEDS: BUMETANIDE 1 MG INJ IV ×2 (06:21→17:06)
[2018-12-04 06:25] LABS: HEMOGLOBIN 6.8 g/dl (14.0-18.0)
[2018-12-04 06:32] LABS: ALANINE AMINOTRANSFERASE 25 IU/L (13-69); ALBUMIN 3.5 g/dl (3.3-4.9); ALKALINE PHOSPHATASE 78 IU/L (42-121); ANION GAP 11 (5-13); ASPARTATE AMINO TRANSFERASE 18 IU/L (15-46); BILIRUBIN,INDIRECT 0.4 mg/dl (0-1.1); BILIRUBIN,TOTAL 0.4 mg/dl (0.2-1.3); BLOOD UREA NITROGEN 85 mg/dl (7-20); CALCIUM 8.1 mg/dl (8.4-10.2); CARBON DIOXIDE 27 mmol/L (21-31); CHLORIDE 103 mmol/L (97-110); CREATININE 4.26 mg/dl (0.61-1.24); Estimated GFR 15 mL/min (>60); GLUCOSE 98 mg/dl (70-220); POTASSIUM 4.1 mmol/L (3.5-5.1); SODIUM 141 mmol/L (135-144); TOTAL PROTEIN 6.4 g/dl (6.1-8.1)
[2018-12-04 06:50] LABS: MAGNESIUM 2.5 mg/dl (1.7-2.5)
[2018-12-04] MEDS: INSULIN ASPART [NOVOLOG] 3 ML PEN SC ×7 (08:00→22:12)
[2018-12-04] MEDS: SPIRONOLACTONE 25 MG TAB PO (08:19)
[2018-12-04] MEDS: ISOSORBIDE MONONITRATE(SR)60 MG TAB PO (08:20)
[2018-12-04] MEDS: NIFEdipine (XL) 30 MG TAB PO ×2 (08:21→22:05)
[2018-12-04] MEDS: SEVELAMER CARBONATE 0.8 GM PKT PO ×3 (08:22→17:06)
[2018-12-04] MEDS: POTASSIUM CHLORIDE (SR) 10 MEQ TAB PO ×2 (08:22→22:06)
[2018-12-04] MEDS: LIDOCAINE 1% (MPF) 5 ML VIAL (10:52)
[2018-12-04 11:34] LABS: FLUID GLUCOSE 148 mg/dl; FLUID TYPE THORACENTESIS FLUID
[2018-12-04 11:35] LABS: FLUID LD 205 U/L; FLUID TOTAL PROTEIN < 2.0 g/dl; FLUID TYPE THORACENTESIS FLUID
[2018-12-04 11:54] LABS: ANISOCYTOSIS 2+ (0-0); BAND NEUTROPHILS % (M) 1 % (0-4); EOSINOPHILS % (M) 11 % (0-7); GIANT THROMBO% (M) 3 % (0-0); LYMPHOCYTES #M 0.5 10^3/ul (0.8-2.9); LYMPHOCYTES % (M) 10 % (15-51); MICROCYTOSIS 1+ (0-0); MONOCYTE #M 0.5 10^3/ul (0.3-0.9); MONOCYTES % (M) 9 % (0-11); OVALOCYTES 1+ (0-0); PLATELET ESTIMATE INCREASED; POIKILOCYTOSIS 1+ (0-0); SEG NEUT #M 3.9 10^3/ul (1.6-7.5); SEGMENTED NEUTROPHILS (M) % 69 % (39-77); SMUDGE%M 18 % (0-0)
[2018-12-04 12:56] LABS: FLD MN% 72.9 %; FLD PMN% 27.1 %; FLD RBC 0 /uL; FLD WBC 59 /cmm
[2018-12-04] MEDS: CEFTRIAXONE 1 GM/50 ML (PMX) 50 ML IVPB (13:32)
[2018-12-04 13:55] LABS: FLD TYPE THORACENTHESIS
[2018-12-04 13:55] LABS: FLD CLARITY CLEAR
[2018-12-04 13:56] LABS: FLD COLOR YELLOW; PATH REVIEW Y
[2018-12-04 16:26] LABS: HEMATOCRIT 22.3 % (42.0-52.0)
[2018-12-04] MEDS: EPOETIN ALFA (ESRD) 20,000 UNITS/ML VIAL SC (16:28)
[2018-12-04] MEDS: ALBUTEROL/IPRATROPIUM (NEB) 3 ML AMP HHN (21:50)
[2018-12-04] MEDS: EZETIMIBE 10 MG TAB PO (22:06)
[2018-12-04] MEDS: ATORVASTATIN 80 MG TAB PO (22:06)
[2018-12-04] MEDS: DOXAZOSIN 4 MG TAB PO (22:06)
[2018-12-04] MEDS: INSULIN GLARGINE [LANTus] (100 UNITS/ML) SYG SC (22:19)
[2018-12-04] MEDS: morphine 2 MG INJ IV (22:22)
[2018-12-05 06:15] LABS: ADD MAN DIFF? NO
[2018-12-05 06:16] LABS: ABNORMAL IP MESSAGE 1; BASOPHILS % 0.4 % (0.0-2.0); EOSINOPHILS # 0.5 10^3/ul (0.0-0.5); EOSINOPHILS % 7.2 % (0.0-7.0); HEMATOCRIT 21.8 % (42.0-52.0); LYMPHOCYTES # 0.6 10^3/ul (0.8-2.9); MEAN CORPUSCULAR HEMOGLOBIN 26.1 pg (29.0-33.0); MEAN CORPUSCULAR HGB CONC 32.1 g/dl (32.0-37.0); MEAN CORPUSCULAR VOLUME 81.3 fl (82.0-101.0); MEAN PLATELET VOLUME 11.3 fl (7.4-10.4); MONOCYTE # 0.8 10^3/ul (0.3-0.9); MONOCYTES % 10.9 % (0.0-11.0); NEUTROPHIL # 5.3 10^3/ul (1.6-7.5); NEUTROPHILS % 73.1 % (39.0-77.0); PLATELET COUNT 163 10^3/UL (140-415); POSITIVE DIFF @See below; RED BLOOD COUNT 2.68 10^6/ul (4.70-6.10); RED CELL DISTRIBUTION WIDTH 15.1 % (11.5-14.5)
[2018-12-05 06:16] LABS: WHITE BLOOD COUNT 7.3 10^3/ul (4.8-10.8)
[2018-12-05] MEDS: BUMETANIDE 1 MG INJ IV ×2 (06:21→17:00)
[2018-12-05 06:54] LABS: MAGNESIUM 2.8 mg/dl (1.7-2.5)
[2018-12-05 07:02] LABS: ALANINE AMINOTRANSFERASE 29 IU/L (13-69); ALBUMIN 3.6 g/dl (3.3-4.9); ALBUMIN/GLOBULIN RATIO 1.38; ALKALINE PHOSPHATASE 88 IU/L (42-121); ANION GAP 12 (5-13); ASPARTATE AMINO TRANSFERASE 16 IU/L (15-46); BILIRUBIN,INDIRECT 0.3 mg/dl (0-1.1); BILIRUBIN,TOTAL 0.3 mg/dl (0.2-1.3); BLOOD UREA NITROGEN 90 mg/dl (7-20); CALCIUM 8.1 mg/dl (8.4-10.2); CARBON DIOXIDE 26 mmol/L (21-31); CHLORIDE 102 mmol/L (97-110); CREATININE 4.41 mg/dl (0.61-1.24); Estimated GFR 15 mL/min (>60); GLUCOSE 132 mg/dl (70-220); SODIUM 140 mmol/L (135-144); TOTAL PROTEIN 6.2 g/dl (6.1-8.1)
[2018-12-05] MEDS: INSULIN ASPART [NOVOLOG] 3 ML PEN SC ×7 (07:41→20:48)
[2018-12-05] MEDS: ALBUTEROL/IPRATROPIUM (NEB) 3 ML AMP HHN (07:57)
[2018-12-05] MEDS: SEVELAMER CARBONATE 0.8 GM PKT PO ×3 (08:02→17:00)
[2018-12-05] MEDS: NIFEdipine (XL) 30 MG TAB PO ×2 (08:02→20:45)
[2018-12-05] MEDS: SPIRONOLACTONE 25 MG TAB PO (08:03)
[2018-12-05] MEDS: POTASSIUM CHLORIDE (SR) 10 MEQ TAB PO ×2 (08:03→20:45)
[2018-12-05] MEDS: ISOSORBIDE MONONITRATE(SR)60 MG TAB PO (08:03)
[2018-12-05] MEDS: METOLAZONE 5 MG TAB PO (08:11)
[2018-12-05] MEDS: CEFTRIAXONE 1 GM/50 ML (PMX) 50 ML IVPB (14:33)
[2018-12-05] MEDS: DIPHENHYDRAMINE 50 MG CAP PO (20:45)
[2018-12-05] MEDS: EZETIMIBE 10 MG TAB PO (20:45)
[2018-12-05] MEDS: DOXAZOSIN 4 MG TAB PO (20:45)
[2018-12-05] MEDS: ATORVASTATIN 80 MG TAB PO (20:46)
[2018-12-05] MEDS: INSULIN GLARGINE [LANTus] (100 UNITS/ML) SYG SC (21:04)
[2018-12-05] MEDS: morphine 2 MG INJ IV (21:08)
[2018-12-06 05:40] LABS: ADD MAN DIFF? NO
[2018-12-06 05:51] LABS: WHITE BLOOD COUNT 5.5 10^3/ul (4.8-10.8)
[2018-12-06 05:51] LABS: ABNORMAL IP MESSAGE 1; BASOPHILS % 0.4 % (0.0-2.0); EOSINOPHILS # 0.6 10^3/ul (0.0-0.5); EOSINOPHILS % 10.1 % (0.0-7.0); HEMATOCRIT 20.6 % (42.0-52.0); LYMPHOCYTES # 0.8 10^3/ul (0.8-2.9); LYMPHOCYTES % 13.7 % (15.0-51.0); MEAN CORPUSCULAR HEMOGLOBIN 26.2 pg (29.0-33.0); MEAN CORPUSCULAR HGB CONC 32.5 g/dl (32.0-37.0); MEAN CORPUSCULAR VOLUME 80.5 fl (82.0-101.0); MEAN PLATELET VOLUME 11.1 fl (7.4-10.4); MONOCYTE # 0.7 10^3/ul (0.3-0.9); MONOCYTES % 12.5 % (0.0-11.0); NEUTROPHIL # 3.5 10^3/ul (1.6-7.5); NEUTROPHILS % 62.9 % (39.0-77.0); PLATELET COUNT 150 10^3/UL (140-415); POSITIVE DIFF @See below; RED BLOOD COUNT 2.56 10^6/ul (4.70-6.10); RED CELL DISTRIBUTION WIDTH 14.9 % (11.5-14.5)
[2018-12-06] MEDS: BUMETANIDE 1 MG INJ IV ×2 (06:00→17:09)
[2018-12-06 06:02] LABS: HEMOGLOBIN 6.7 g/dl (14.0-18.0)
[2018-12-06 06:22] LABS: ANION GAP 12 (5-13); BLOOD UREA NITROGEN 100 mg/dl (7-20); CALCIUM 7.9 mg/dl (8.4-10.2); CARBON DIOXIDE 26 mmol/L (21-31); CHLORIDE 101 mmol/L (97-110); CREATININE 4.67 mg/dl (0.61-1.24); Estimated GFR 14 mL/min (>60); GLUCOSE 105 mg/dl (70-220); PHOSPHORUS 5.3 mg/dl (2.5-4.9); POTASSIUM 3.5 mmol/L (3.5-5.1); SODIUM 139 mmol/L (135-144)
[2018-12-06 06:29] LABS: MAGNESIUM 2.9 mg/dl (1.7-2.5)
[2018-12-06] MEDS: INSULIN ASPART [NOVOLOG] 3 ML PEN SC ×7 (07:37→20:57)
[2018-12-06] MEDS: SPIRONOLACTONE 25 MG TAB PO (07:39)
[2018-12-06] MEDS: SEVELAMER CARBONATE 0.8 GM PKT PO ×3 (07:39→17:09)
[2018-12-06] MEDS: POTASSIUM CHLORIDE (SR) 10 MEQ TAB PO ×2 (07:39→20:55)
[2018-12-06] MEDS: ISOSORBIDE MONONITRATE(SR)60 MG TAB PO (07:40)
[2018-12-06] MEDS: NIFEdipine (XL) 30 MG TAB PO ×2 (07:40→20:56)
[2018-12-06 12:39] LABS: ADD MAN DIFF? NO
[2018-12-06 12:41] LABS: WHITE BLOOD COUNT 5.7 10^3/ul (4.8-10.8)
[2018-12-06 12:41] LABS: BASOPHILS % 0.5 % (0.0-2.0); EOSINOPHILS # 0.5 10^3/ul (0.0-0.5); EOSINOPHILS % 9.3 % (0.0-7.0); HEMATOCRIT 21.9 % (42.0-52.0); LYMPHOCYTES # 0.7 10^3/ul (0.8-2.9); LYMPHOCYTES % 11.5 % (15.0-51.0); MEAN CORPUSCULAR HEMOGLOBIN 25.5 pg (29.0-33.0); MEAN CORPUSCULAR VOLUME 79.6 fl (82.0-101.0); MEAN PLATELET VOLUME 10.9 fl (7.4-10.4); MONOCYTE # 0.7 10^3/ul (0.3-0.9); MONOCYTES % 12.2 % (0.0-11.0); NEUTROPHIL # 3.8 10^3/ul (1.6-7.5); NEUTROPHILS % 66.3 % (39.0-77.0); PLATELET COUNT 150 10^3/UL (140-415); RED BLOOD COUNT 2.75 10^6/ul (4.70-6.10); RED CELL DISTRIBUTION WIDTH 14.9 % (11.5-14.5)
[2018-12-06 13:02] LABS: IRON 35 ug/dl (35-150)
[2018-12-06 13:11] LABS: % IRON SATURATION 12 % SAT (22-52); TOTAL IRON BINDING CAPACITY 290 ug/dl (241-421)
[2018-12-06] MEDS: CEFTRIAXONE 1 GM/50 ML (PMX) 50 ML IVPB (13:45)
[2018-12-06 14:00] LABS: FERRITIN 92.9 ng/ml (17.9-464.0)
[2018-12-06 14:08] LABS: ADD UMIC YES; UR ASCORBIC ACID NEGATIVE (NEGATIVE); UR BACTERIA FEW /HPF (NONE SEEN); UR BILIRUBIN (Dip) NEGATIVE (NEGATIVE); UR BLOOD (Dip) NEGATIVE (NEGATIVE); UR BUDDING YEAST FEW /HPF (NONE SEEN); UR CLARITY CLEAR (CLEAR); UR COLOR YELLOW (YELLOW); UR GLUCOSE (Dip) 1+ mg/dL (NEGATIVE); UR KETONES (Dip) NEGATIVE (NEGATIVE); UR LEUKOCYTE ESTERASE (Dip) NEGATIVE Leu/ul (NEGATIVE); UR NITRITE (Dip) NEGATIVE (NEGATIVE); UR RBC 1 /HPF (0-5); UR TOTAL PROTEIN (Dip) 2+ mg/dl (NEGATIVE); UR UROBILINOGEN (Dip) NEGATIVE (NEGATIVE); UR WBC 1 /HPF (0-5)
[2018-12-06 14:35] LABS: SODIUM,URINE RANDOM 19 mmol/L (30-90)
[2018-12-06 14:35] LABS: CREATININE,URINE RANDOM 112.92 mg/dl (20-370)
[2018-12-06] MEDS: EZETIMIBE 10 MG TAB PO (20:55)
[2018-12-06] MEDS: ATORVASTATIN 80 MG TAB PO (20:56)
[2018-12-06] MEDS: DOXAZOSIN 4 MG TAB PO (20:57)
[2018-12-06] MEDS: INSULIN GLARGINE [LANTus] (100 UNITS/ML) SYG SC (21:02)
[2018-12-07] MEDS: BUMETANIDE 1 MG INJ IV ×2 (05:16→17:15)
[2018-12-07] MEDS: SEVELAMER CARBONATE 0.8 GM PKT PO ×3 (07:39→17:15)
[2018-12-07] MEDS: INSULIN ASPART [NOVOLOG] 3 ML PEN SC ×7 (07:49→21:00)
[2018-12-07] MEDS: POTASSIUM CHLORIDE (SR) 10 MEQ TAB PO ×2 (08:44→21:41)
[2018-12-07] MEDS: NIFEdipine (XL) 30 MG TAB PO ×2 (08:44→21:41)
[2018-12-07] MEDS: ISOSORBIDE MONONITRATE(SR)60 MG TAB PO (08:45)
[2018-12-07] MEDS: SPIRONOLACTONE 25 MG TAB PO (08:45)
[2018-12-07 09:54] LABS: ADD MAN DIFF? NO
[2018-12-07 10:03] LABS: WHITE BLOOD COUNT 6.8 10^3/ul (4.8-10.8)
[2018-12-07 10:03] LABS: BASOPHILS % 0.3 % (0.0-2.0); EOSINOPHILS # 0.5 10^3/ul (0.0-0.5); EOSINOPHILS % 7.2 % (0.0-7.0); HEMATOCRIT 22.7 % (42.0-52.0); HEMOGLOBIN 7.1 g/dl (14.0-18.0); LYMPHOCYTES # 0.6 10^3/ul (0.8-2.9); LYMPHOCYTES % 9.5 % (15.0-51.0); MEAN CORPUSCULAR HEMOGLOBIN 25.1 pg (29.0-33.0); MEAN CORPUSCULAR HGB CONC 31.3 g/dl (32.0-37.0); MEAN CORPUSCULAR VOLUME 80.2 fl (82.0-101.0); MEAN PLATELET VOLUME 11.1 fl (7.4-10.4); MONOCYTE # 0.7 10^3/ul (0.3-0.9); MONOCYTES % 10.3 % (0.0-11.0); NEUTROPHIL # 4.9 10^3/ul (1.6-7.5); NEUTROPHILS % 72.1 % (39.0-77.0); PLATELET COUNT 154 10^3/UL (140-415); RED BLOOD COUNT 2.83 10^6/ul (4.70-6.10); RED CELL DISTRIBUTION WIDTH 14.8 % (11.5-14.5)
[2018-12-07 10:18] LABS: ANION GAP 13 (5-13); BLOOD UREA NITROGEN 98 mg/dl (7-20); CALCIUM 8.1 mg/dl (8.4-10.2); CARBON DIOXIDE 27 mmol/L (21-31); CHLORIDE 98 mmol/L (97-110); CREATININE 4.55 mg/dl (0.61-1.24); Estimated GFR 14 mL/min (>60); GLUCOSE 194 mg/dl (70-220); PHOSPHORUS 4.9 mg/dl (2.5-4.9); POTASSIUM 3.5 mmol/L (3.5-5.1); SODIUM 138 mmol/L (135-144)
[2018-12-07] MEDS: CEFTRIAXONE 1 GM/50 ML (PMX) 50 ML IVPB (14:45)
[2018-12-07] MEDS: EZETIMIBE 10 MG TAB PO (21:41)
[2018-12-07] MEDS: DOXAZOSIN 4 MG TAB PO (21:42)
[2018-12-07] MEDS: ATORVASTATIN 80 MG TAB PO (21:42)
[2018-12-07] MEDS: INSULIN GLARGINE [LANTus] (100 UNITS/ML) SYG SC (22:01)
[2018-12-07] MEDS: morphine 2 MG INJ IV (23:04)
[2018-12-08 05:43] LABS: ADD MAN DIFF? NO
[2018-12-08 05:47] LABS: ABNORMAL IP MESSAGE 1; BASOPHILS % 0.4 % (0.0-2.0); EOSINOPHILS # 0.5 10^3/ul (0.0-0.5); EOSINOPHILS % 7.5 % (0.0-7.0); HEMATOCRIT 21.8 % (42.0-52.0); LYMPHOCYTES # 0.9 10^3/ul (0.8-2.9); LYMPHOCYTES % 12.6 % (15.0-51.0); MEAN CORPUSCULAR HEMOGLOBIN 25.2 pg (29.0-33.0); MEAN CORPUSCULAR HGB CONC 31.7 g/dl (32.0-37.0); MEAN CORPUSCULAR VOLUME 79.6 fl (82.0-101.0); MEAN PLATELET VOLUME 11.3 fl (7.4-10.4); MONOCYTE # 0.8 10^3/ul (0.3-0.9); MONOCYTES % 11.3 % (0.0-11.0); NEUTROPHIL # 4.6 10^3/ul (1.6-7.5); NEUTROPHILS % 67.8 % (39.0-77.0); PLATELET COUNT 173 10^3/UL (140-415); POSITIVE DIFF @See below; RED BLOOD COUNT 2.74 10^6/ul (4.70-6.10); RED CELL DISTRIBUTION WIDTH 14.9 % (11.5-14.5)
[2018-12-08 05:47] LABS: WHITE BLOOD COUNT 6.8 10^3/ul (4.8-10.8)
[2018-12-08 05:58] LABS: HEMOGLOBIN 6.9 g/dl (14.0-18.0)
[2018-12-08] MEDS: BUMETANIDE 1 MG INJ IV ×2 (06:17→17:47)
[2018-12-08 06:20] LABS: ANION GAP 13 (5-13); BLOOD UREA NITROGEN 101 mg/dl (7-20); CALCIUM 8.1 mg/dl (8.4-10.2); CARBON DIOXIDE 27 mmol/L (21-31); CHLORIDE 99 mmol/L (97-110); CREATININE 4.65 mg/dl (0.61-1.24); Estimated GFR 14 mL/min (>60); GLUCOSE 128 mg/dl (70-220); MAGNESIUM 3.1 mg/dl (1.7-2.5); PHOSPHORUS 4.5 mg/dl (2.5-4.9); POTASSIUM 3.6 mmol/L (3.5-5.1); SODIUM 139 mmol/L (135-144)
[2018-12-08] MEDS: SEVELAMER CARBONATE 0.8 GM PKT PO ×3 (07:55→17:46)
[2018-12-08] MEDS: INSULIN ASPART [NOVOLOG] 3 ML PEN SC ×6 (07:56→17:32)
[2018-12-08] MEDS: SPIRONOLACTONE 25 MG TAB PO (09:05)
[2018-12-08] MEDS: POTASSIUM CHLORIDE (SR) 10 MEQ TAB PO (09:05)
[2018-12-08] MEDS: ISOSORBIDE MONONITRATE(SR)60 MG TAB PO (09:06)
[2018-12-08] MEDS: NIFEdipine (XL) 30 MG TAB PO (09:06)
[2018-12-08] MEDS: morphine 2 MG INJ IV (09:10)
[2018-12-08] MEDS: SOD CHLORIDE 0.9% 250 ML IV* (12:41)
[2018-12-08 15:22] LABS: CREATININE, RANDOM URINE 113 mg/dL (20-320); MICROALBUMIN 98.2 mg/dL; MICROALBUMIN/CREATININE RATIO 869 (<30)
[2018-12-08 15:48] LABS: IMMEDIATE SPIN CROSSMATCH 1 1
== END 2018-12-08 19:14 | disposition home or self-care (01) | DRG 291 ==
LOC: E/R 22:07 → 6WM 12-01 00:37
PROC: 0W993ZZ Drainage of Right Pleural Cavity, Percutaneous Approach (ICD-10-PCS; 2018-12-04)
PROC: 30233N1 Transfusion of Nonautologous Red Blood Cells into Peripheral Vein, Percutaneous Approach (ICD-10-PCS; principal; 2018-12-08)
DX: I13.2 Hypertensive heart and chronic kidney disease with heart failure and with stage 5 chronic kidney disease, or end stage renal disease (principal); I50.33 Acute on chronic diastolic (congestive) heart failure; J18.9 Pneumonia, unspecified organism; N18.5 Chronic kidney disease, stage 5; Z68.41 Body mass index [BMI] 40.0-44.9, adult; N17.9 Acute kidney failure, unspecified; R78.81 Bacteremia; E11.22 Type 2 diabetes mellitus with diabetic chronic kidney disease; E66.01 Morbid (severe) obesity due to excess calories; D63.1 Anemia in chronic kidney disease; Z79.02 Long term (current) use of antithrombotics/antiplatelets; R14.0 Abdominal distension (gaseous); Z72.0 Tobacco use; R59.1 Generalized enlarged lymph nodes; B96.89 Other specified bacterial agents as the cause of diseases classified elsewhere
CPT/HCPCS: 32555; 36430; 71045; 74176; 80048; 80053; 80061; 81001; 81003; 82043; 82306; 82550; 82553; 82652; 82728; 82945; 82962; 83036; 83540; 83615; 83735; 83880; 83970; 84100; 84155; 84157; 84300; 84443; 84484; 85014; 85018; 85025; 85610; 85730; 86850; 86900; 86901; 86920; 87040-91; 87070; 87102; 87116; 89051; 93005; 94640; 94664; 97162

== ENCOUNTER 2019-02-02 16:31 | Emergency (ER) | payer OTHER ==
[2019-02-02 18:04] LABS: ADD MAN DIFF? NO
[2019-02-02 18:10] LABS: WHITE BLOOD COUNT 7.9 10^3/ul (4.8-10.8)
[2019-02-02 18:10] LABS: BASOPHILS % 0.5 % (0.0-2.0); EOSINOPHILS # 0.7 10^3/ul (0.0-0.5); EOSINOPHILS % 8.2 % (0.0-7.0); HEMATOCRIT 33.8 % (42.0-52.0); HEMOGLOBIN 10.7 g/dl (14.0-18.0); LYMPHOCYTES # 0.8 10^3/ul (0.8-2.9); LYMPHOCYTES % 10.6 % (15.0-51.0); MEAN CORPUSCULAR HEMOGLOBIN 25.7 pg (29.0-33.0); MEAN CORPUSCULAR HGB CONC 31.7 g/dl (32.0-37.0); MEAN CORPUSCULAR VOLUME 81.3 fl (82.0-101.0); MEAN PLATELET VOLUME 10.3 fl (7.4-10.4); MONOCYTE # 0.8 10^3/ul (0.3-0.9); MONOCYTES % 10.1 % (0.0-11.0); NEUTROPHIL # 5.6 10^3/ul (1.6-7.5); NEUTROPHILS % 70.3 % (39.0-77.0); PLATELET COUNT 295 10^3/UL (140-415); RED BLOOD COUNT 4.16 10^6/ul (4.70-6.10); RED CELL DISTRIBUTION WIDTH 15.4 % (11.5-14.5)
[2019-02-02 18:25] LABS: ALANINE AMINOTRANSFERASE 38 IU/L (13-69); ALBUMIN 3.8 g/dl (3.3-4.9); ALBUMIN/GLOBULIN RATIO 1.18; ALKALINE PHOSPHATASE 127 IU/L (42-121); ANION GAP 13 (5-13); ASPARTATE AMINO TRANSFERASE 28 IU/L (15-46); BILIRUBIN,INDIRECT 0.2 mg/dl (0-1.1); BILIRUBIN,TOTAL 0.2 mg/dl (0.2-1.3); BLOOD UREA NITROGEN 87 mg/dl (7-20); CALCIUM 9.2 mg/dl (8.4-10.2); CARBON DIOXIDE 29 mmol/L (21-31); CHLORIDE 96 mmol/L (97-110); CREATININE 6.29 mg/dl (0.61-1.24); Estimated GFR 10 mL/min (>60); GLUCOSE 191 mg/dl (70-220); POTASSIUM 3.5 mmol/L (3.5-5.1); SODIUM 138 mmol/L (135-144)
[2019-02-02 18:27] LABS: MAGNESIUM 2.2 mg/dl (1.7-2.5); PHOSPHORUS 5.7 mg/dl (2.5-4.9)
== END 2019-02-02 18:45 | disposition home or self-care (01) ==
LOC: E/R 16:31
DX: Z53.21 Procedure and treatment not carried out due to patient leaving prior to being seen by health care provider (principal)
CPT/HCPCS: 80053; 83735; 84100; 85025; 99283